=== PATIENT | female | born 1945 | race American Indian/Alaskan Native ===

== ENCOUNTER 2017-11-22 12:18 | Emergency (ER) | payer OTHER, MEDICARE ==
[2017-11-22 13:09] VITALS: BP 136/65
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
== END 2017-11-22 17:10 | disposition home or self-care (01) ==
LOC: ED 12:18
DX: Z04.1 Encounter for examination and observation following transport accident (principal); E11.9 Type 2 diabetes mellitus without complications; I10 Essential (primary) hypertension; F31.9 Bipolar disorder, unspecified; Z79.82 Long term (current) use of aspirin; F03.90 Unspecified dementia, unspecified severity, without behavioral disturbance, psychotic disturbance, mood disturbance, and anxiety; M10.9 Gout, unspecified; V89.2XXA Person injured in unspecified motor-vehicle accident, traffic, initial encounter; Y93.89 Activity, other specified; Y92.89 Other specified places as the place of occurrence of the external cause; Y99.8 Other external cause status
CPT/HCPCS: 99282

== ENCOUNTER 2018-07-16 09:02 | Emergency (ER) | payer MEDICARE ==
[2018-07-16] MEDS ORDERED: HALDOL IM ONE (09:25)
--- NOTE | 2018-07-16 09:29 | Emergency Department Report ---
HPI - General Time Seen by Provider: 07/16/18 09:24 - HPI HPI: Room 1 The patient is a 72-year-old female presenting with a chief complaint of fall. The patient is currently at [facility] under 101[facility]. The patient reportedly fell striking her head today and she was sent to the ED for evaluation. There was no loss of consciousness. Patient is hyperverbal and rambles but does not answer questions (baseline per anchor staff) Location: Head Duration: Just prior to arrival Quality: Struck head Severity: Moderate Modifying factors: [see above] Context: [see above] Mode of transportation: [not driving] ED Past Medical Hx - Past Medical History Hx Hypertension: Yes Hx Diabetes: Yes Hx Psychiatric Treatment: Yes Hx Dementia: Yes Additional medical history: Neuropathy, Gout, Bipolar - Surgical History Additional Surgical History: Unknown - Family History Family history: no significant - Social History Smoking Status: Unknown if ever smoked - Medications Home Medications: Home Medications Medication Instructions Recorded Confirmed Last Taken Type Allopurinol 200 mg PO DAILY 07/26/17 07/26/17 Unknown History Aspirin [Aspirin BABY CHEW TAB] 81 mg PO DAILY 07/26/17 07/26/17 Unknown History AtorvaSTATin [Lipitor] 10 mg PO DAILY 07/26/17 07/26/17 Unknown History Divalproex ER [Depakote ER] 500 mg PO DAILY 07/26/17 07/26/17 Unknown History Donepezil [Aricept] 10 mg PO QHS 07/26/17 07/26/17 Unknown History Enalapril Maleate [Vasotec] 10 mg PO BID 07/26/17 07/26/17 Unknown History Gabapentin [Neurontin] 300 mg PO BID 07/26/17 07/26/17 Unknown History Levothyroxine [Synthroid] 150 mcg PO DAILY 07/26/17 07/26/17 Unknown History Memantine [Namenda] 5 mg PO DAILY 07/26/17 07/26/17 Unknown History Metoprolol Xl [Metoprolol 100 mg PO DAILY 07/26/17 07/26/17 Unknown History SUCCINATE ER TAB] metFORMIN [Glucophage] 500 mg PO DAILY 07/26/17 07/26/17 Unknown History Clozapine 100 mg PO QAM 08/05/17 08/05/17 Unknown History Clozapine 200 mg PO QHS 08/05/17 08/05/17 Unknown History Mirtazapine [Remeron] 15 mg PO QHS #30 tablet 08/05/17 Unknown Rx Ibuprofen [Motrin] 600 mg PO Q8H PRN #30 tablet 11/22/17 Unknown Rx methOCARBAMOL [Robaxin TAB] 500 mg PO BID 5 Days tab 11/22/17 Unknown Rx ED Review of Systems ROS: Stated complaint: FELL/AMS Other details as noted in HPI Comment: Unobtainable due to pts medical conditions Physical Exam - Physical Exam Physical Exam: GENERAL: The patient is well-developed well-nourished female sitting on stretcher hyperverbal/rambling and not appearing to be in acute distress. [] HEENT: Normocephalic. Atraumatic. Extraocular motions are intact. Patient has moist mucous membranes. NECK: Supple. Trachea midline CHEST/LUNGS: Clear to auscultation. There is no respiratory distress noted. HEART/CARDIOVASCULAR: Regular. There is no tachycardia. There is no gallop rub or murmur. ABDOMEN: Abdomen is soft, nontender. Patient has normal bowel sounds. There is no abdominal distention. SKIN: There is no rash. There is no edema. There is no diaphoresis. NEURO: The patient is awake, alert and rambling. The patient is not cooperative with neurologic exam but is observed moving all 4 extremities. The patient has normal speech (except hyperverbal) MUSCULOSKELETAL: There is no evidence of acute injury. ED Medical Decision Making - Radiology Data Radiology results: report reviewed (CT head, CT cervical spine), image reviewed (CT head, CT cervical spine) [facility] [address] [place] [address] Cat Scan Report Signed Patient: HAYLEY GOMEZ MR#: [id number] : Acct:[id number] Age/Sex: 72 / F ADM Date: 07/16/18 Loc: ED Attending Dr: Ordering Physician: MIGUEL DRIVER MD Date of Service: 07/16/18 Procedure(s): CT head/brain wo con Accession Number(s): [id number] cc: MIGUEL DRIVER MD CT head without contrast: Fall, head trauma. Axial images demonstrates high density streaking in the right frontal region. There is a thin rim of high density paralleling the left mid and posterior temporal occipital region. The thickest area appears to be just lateral to the temporal region measuring 7.5 mm. No cerebral displacement, edema, or overlying calvarial fracture noted. The findings are not otherwise remarkable. Impression: Left subdural hematoma and right contrecoup concussion. Cervical CT without contrast: Trauma, pain. Transverse images were obtained from the skull base through T2. Coronal and sagittal 2-D reformatted images included. There is normal vertebral alignment with good preservation of the vertebral height and interspace distances. There is anterior bony bridging between C6 and C7. There is no fracture identified. No significant foraminal or spinal stenosis. No prevertebral swelling. Impressions: No acute or significant pathology identified for patient's age. Transcribed By: RML Dictated By: SHERITA ROBERTSON MD Electronically Authenticated By: SHERITA ROBERTSON MD Signed Date/Time: 07/16/181124 DD/DT: 02/26 TD/TT: 07/16/181124 [facility] [address] [place] [address] Cat Scan Report Signed Patient: HAYLEY GOMEZ MR#: [id number] : Acct:[id number] Age/Sex: 72 / F ADM Date: 07/16/18 Loc: ED Attending Dr: Ordering Physician: MIGUEL DRIVER MD Date of Service: 07/16/18 Procedure(s): CT cervical spine wo con Accession Number(s): [id number] cc: MIGUEL DRIVER MD CT head without contrast: Fall, head trauma. Axial images demonstrates high density streaking in the right frontal region. There is a thin rim of high density paralleling the left mid and posterior temporal occipital region. The thickest area appears to be just lateral to the temporal region measuring 7.5 mm. No cerebral displacement, edema, or overlying calvarial fracture noted. The findings are not otherwise remarkable. Impression: Left subdural hematoma and right contrecoup concussion. Cervical CT without contrast: Trauma, pain. Transverse images were obtained from the skull base through T2. Coronal and sagittal 2-D reformatted images included. There is normal vertebral alignment with good preservation of the vertebral height and interspace distances. There is anterior bony bridging between C6 and C7. There is no fracture identified. No significant foraminal or spinal stenosis. No prevertebral swelling. Impressions: No acute or significant pathology identified for patient's age. Transcribed By: RMLandon Dictated By: SHERITA ROBERTSON MD Electronically Authenticated By: SHERITA ROBERTSON MD Signed Date/Time: 07/16/185 DD/DT: 02/26 TD/TT: 07/16/181124 - Differential Diagnosis closed head injury, intracranial hemorrhage, Depakote toxicity Critical care attestation.: If time is entered above; I have spent that time in minutes in the direct care of this critically ill patient, excluding procedure time. ED Disposition Clinical Impression: Closed head injury Disposition: DC/TX-65 PSY HOSP/PSY UNIT Is pt being admited?: No Does the pt Need Aspirin: No Condition: Stable Instructions: Minor Head Injury (ED) Additional Instructions: Return to the emergency department immediately should you develop worsening symptoms, fever, inability to tolerate food or liquid or any other concerns. Referrals: PRIMARY CAREMD [Primary Care Provider] - 3-5 Days Time of Disposition: 12:00
[2018-07-16] MEDS ORDERED: ATIVAN IM ONE (10:30)
--- NOTE | 2018-07-16 11:44 | Cat Scan Report ---
CT head without contrast: Fall, head trauma. Axial images demonstrates high density streaking in the right frontal region. There is a thin rim of high density paralleling the left mid and posterior temporal occipital region. The thickest area appears to be just lateral to the temporal region measuring 7.5 mm. No cerebral displacement, edema, or overlying calvarial fracture noted. The findings are not otherwise remarkable. Impression: Left subdural hematoma and right contrecoup concussion. Cervical CT without contrast: Trauma, pain. Transverse images were obtained from the skull base through T2. Coronal and sagittal 2-D reformatted images included. There is normal vertebral alignment with good preservation of the vertebral height and interspace distances. There is anterior bony bridging between C6 and C7. There is no fracture identified. No significant foraminal or spinal stenosis. No prevertebral swelling. Impressions: No acute or significant pathology identified for patient's age.
[2018-07-16] MEDS ORDERED: NORMODYNE IV ONE (14:35)
[2018-07-16 14:44] VITALS: BP 163/76
== END 2018-07-16 14:46 ==
LOC: ED 09:02
DX: S09.90XA Unspecified injury of head, initial encounter (principal); I10 Essential (primary) hypertension; E11.9 Type 2 diabetes mellitus without complications; G62.9 Polyneuropathy, unspecified; Z79.82 Long term (current) use of aspirin; W18.30XA Fall on same level, unspecified, initial encounter; Y93.89 Activity, other specified; Y92.89 Other specified places as the place of occurrence of the external cause; Y99.8 Other external cause status
CPT/HCPCS: 36415; 70450; 72125; 80164; 96372; 99284; J1630; J2060

== ENCOUNTER 2019-03-06 12:27 | Inpatient (IN) | payer MEDICARE ==
[2019-03-06] MEDS ORDERED: NARCAN 2 MG/2 ML IV STA (12:29)
--- NOTE | 2019-03-06 12:40 | Emergency Department Report ---
ED Altered Mental Status HPI - General Stated Complaint: UNRESPONSIVE Time Seen by Provider: 03/06/19 12:29 Source: EMS, RN notes reviewed, old records reviewed Mode of arrival: Stretcher Limitations: Altered Mental Status - History of Present Illness Initial Comments: Mrs. Canseco is a 73 yo female with hx of dementia, diabetes mellitus, HTN subdural hemorrhage [facility] for decreased level of consciousness. She fell alseep while sitting in a synagogue service. She was unresponsive. She received 2 mg IV naloxone 5 minutes prior to arrival. Blood glucose was normal. After sternal rub, she awakened with her eyes closed. She then attempted to talk. She was able to give her name. MD Complaint: decreased responsiveness -: Sudden, This afternoon Severity: severe Consistency of Symptoms: constant Context: unknown Treatments Prior to Arrival: other pre-hosp med (naloxone) - Related Data Home Medications Medication Instructions Recorded Confirmed Last Taken Aspirin [Aspirin BABY CHEW TAB] 81 mg PO DAILY 07/26/17 03/06/19 Unknown AtorvaSTATin [Lipitor] 10 mg PO DAILY 07/26/17 03/06/19 Unknown Divalproex ER [Depakote ER] 250 mg PO BID 07/26/17 03/06/19 Unknown Donepezil [Aricept] 10 mg PO QHS 07/26/17 03/06/19 Unknown Enalapril Maleate [Vasotec] 10 mg PO BID 07/26/17 03/06/19 Unknown Gabapentin [Neurontin] 300 mg PO BID 07/26/17 03/06/19 Unknown Levothyroxine [Synthroid] 150 mcg PO DAILY 07/26/17 03/06/19 Unknown Memantine [Namenda] 5 mg PO DAILY 07/26/17 03/06/19 Unknown Metoprolol Xl [Metoprolol 100 mg PO DAILY 07/26/17 03/06/19 Unknown SUCCINATE ER TAB] metFORMIN [Glucophage] 500 mg PO BID 07/26/17 03/06/19 Unknown cloZAPine 200 mg PO QAM 03/06/19 03/06/19 Unknown cloZAPine 300 mg PO QPM 03/06/19 03/06/19 Unknown Allergies Allergy/AdvReac Type Severity Reaction Status Date / Time No Known Allergies Allergy Verified 07/16/18 15:02 ED Review of Systems ROS: Stated complaint: UNRESPONSIVE Other details as noted in HPI Comment: Unobtainable due to pts medical conditions (AMS) ED Past Medical Hx - Past Medical History Previous Medical History?: Yes Hx Hypertension: Yes Hx Diabetes: Yes Hx Psychiatric Treatment: Yes Hx Dementia: Yes Additional medical history: Neuropathy, Gout, Bipolar - Surgical History Additional Surgical History: Unknown - Social History Smoking Status: Never Smoker - Medications Home Medications: Home Medications Medication Instructions Recorded Confirmed Last Taken Type Aspirin [Aspirin BABY CHEW TAB] 81 mg PO DAILY 07/26/17 03/06/19 Unknown History AtorvaSTATin [Lipitor] 10 mg PO DAILY 07/26/17 03/06/19 Unknown History Divalproex ER [Depakote ER] 250 mg PO BID 07/26/17 03/06/19 Unknown History Donepezil [Aricept] 10 mg PO QHS 07/26/17 03/06/19 Unknown History Enalapril Maleate [Vasotec] 10 mg PO BID 07/26/17 03/06/19 Unknown History Gabapentin [Neurontin] 300 mg PO BID 07/26/17 03/06/19 Unknown History Levothyroxine [Synthroid] 150 mcg PO DAILY 07/26/17 03/06/19 Unknown History Memantine [Namenda] 5 mg PO DAILY 07/26/17 03/06/19 Unknown History Metoprolol Xl [Metoprolol 100 mg PO DAILY 07/26/17 03/06/19 Unknown History SUCCINATE ER TAB] metFORMIN [Glucophage] 500 mg PO BID 07/26/17 03/06/19 Unknown History cloZAPine 200 mg PO QAM 03/06/19 03/06/19 Unknown History cloZAPine 300 mg PO QPM 03/06/19 03/06/19 Unknown History ED Physical Exam - General General appearance: lethargic, other (arousable to sternal rub) - Head Head exam: Present: atraumatic, normocephalic - Eye Eye exam: Present: normal appearance, PERRL - ENT ENT exam: Present: other (copious amount of thick sputum in throat) - Neck Neck exam: Present: normal inspection, full ROM - Respiratory Respiratory exam: Present: normal lung sounds bilaterally. Absent: respiratory distress, wheezes, rales, rhonchi - Cardiovascular Cardiovascular Exam: Present: regular rate, normal rhythm, normal heart sounds. Absent: systolic murmur, diastolic murmur, rubs, gallop - GI/Abdominal GI/Abdominal exam: Present: soft, normal bowel sounds. Absent: distended, tenderness, guarding, rebound - Extremities Exam Extremities exam: Present: normal inspection - Back Exam Back exam: Present: normal inspection - Psychiatric Psychiatric exam: Present: normal affect, normal mood - Skin Skin exam: Present: warm, dry, intact, normal color. Absent: rash ED Course Vital Signs 03/06/19 03/06/19 03/06/19 12:26 12:33 12:34 Temperature 98 F Pulse Rate 78 83 Respiratory 16 14 14 Rate Blood Pressure 137/71 [Right] O2 Sat by Pulse 98 96 95 Oximetry 03/06/19 03/06/19 03/06/19 12:36 12:38 12:40 Temperature Pulse Rate 80 81 Respiratory 15 17 17 Rate Blood Pressure [Right] O2 Sat by Pulse 96 98 98 Oximetry - Lab Data Result diagrams: 03/06/19 Unknown 03/06/19 12:42 Lab Results 03/06/19 03/06/19 03/06/19 Range/Units 12:37 12:42 12:42 WBC (4.5-11.0) K/mm3 RBC (3.65-5.03) M/mm3 Hgb (10.1-14.3) gm/dl Hct (30.3-42.9) % MCV (79-97) fl MCH (28-32) pg MCHC (30-34) % RDW (13.2-15.2) % Plt Count (140-440) K/mm3 Lymph % (Auto) [place] % (Auto) Eos % (Auto) Baso % (Auto) Lymph # [place] # Eos # Baso # Add Manual Diff Total Counted Seg Neutrophils % Seg Neuts % (Manual) (40.0-70.0) % Band Neutrophils % % Lymphocytes % (Manual) (13.4-35.0) % Reactive Lymphs % (Man) % Monocytes % (Manual) (0.0-7.3) % Eosinophils % (Manual) (0.0-4.3) % Basophils % (Manual) (0.0-1.8) % Metamyelocytes % % Myelocytes % % Promyelocytes % % Blast Cells % % Nucleated RBC % Seg Neutrophils # Seg Neutrophils # Man (1.8-7.7) K/mm3 Band Neutrophils # K/mm3 Lymphocytes # (Manual) (1.2-5.4) K/mm3 Abs React Lymphs (Man) K/mm3 Monocytes # (Manual) (0.0-0.8) K/mm3 Eosinophils # (Manual) (0.0-0.4) K/mm3 Basophils # (Manual) (0.0-0.1) K/mm3 Metamyelocytes # K/mm3 Myelocytes # K/mm3 Promyelocytes # K/mm3 Blast Cells # K/mm3 WBC Morphology Hypersegmented Neuts Hyposegmented Neuts Hypogranular Neuts Smudge Cells Toxic Granulation Toxic Vacuolation Dohle Bodies Pelger-Huet Anomaly Gage Rods Platelet Estimate Clumped Platelets Plt Clumps, EDTA Large Platelets Giant Platelets Platelet Satelliting Plt Morphology Comment RBC Morphology Dimorphic RBCs Polychromasia Hypochromasia Poikilocytosis Anisocytosis Microcytosis Macrocytosis Spherocytes Pappenheimer Bodies Sickle Cells Target Cells Tear Drop Cells Ovalocytes Helmet Cells [place] Bodies [place] Rings [place] Cells Bite Cells Crenated Cell Elliptocytes Acanthocytes (Spur) Rouleaux Hemoglobin C Crystals Schistocytes Malaria parasites Marlon Bodies Hem Pathologist Commnt Sodium 146 H (137-145) mmol/L Potassium 4.2 (3.6-5.0) mmol/L Chloride 111.7 H (98-107) mmol/L Carbon Dioxide 19 L (22-30) mmol/L Anion Gap 20 mmol/L BUN 20 H (7-17) mg/dL Creatinine 1.3 H (0.7-1.2) mg/dL Estimated GFR 48 ml/min BUN/Creatinine Ratio 15 % Glucose 121 H (65-100) mg/dL POC Glucose 108 H (70-105) Lactic Acid 3.30 H* (0.7-2.0) mmol/L Calcium 8.7 (8.4-10.2) mg/dL Total Bilirubin 0.20 (0.1-1.2) mg/dL AST 8 (5-40) units/L ALT 13 (7-56) units/L Alkaline Phosphatase 84 (35-129) units/L Ammonia (25-60) umol/L Troponin T 0.039 H (0.00-0.029) ng/mL Total Protein 5.9 L (6.3-8.2) g/dL Albumin 3.2 L (3.9-5) g/dL Albumin/Globulin Ratio 1.2 % Triglycerides 85 (2-149) mg/dL Cholesterol 120 (50-199) mg/dL LDL Cholesterol Direct 71 (50-130) mg/dL HDL Cholesterol 34 L (40-59) mg/dL Cholesterol/HDL Ratio 3.52 % TSH (0.270-4.200) mlU/mL Urine Color (Yellow) Urine Turbidity (Clear) Urine pH (5.0-7.0) Ur Specific [place] (1.003-1.030) Urine Protein (Negative) mg/dL Urine Glucose (UA) (Negative) mg/dL Urine Ketones (Negative) mg/dL Urine Blood (Negative) Urine Nitrite (Negative) Urine Bilirubin (Negative) Urine Urobilinogen (<2.0) mg/dL Ur Leukocyte Esterase (Negative) Urine WBC (Auto) (0.0-6.0) /HPF Urine RBC (Auto) (0.0-6.0) /HPF Urine Mucus /HPF Salicylates (2.8-20.0) mg/dL Urine Opiates Screen Urine Methadone Screen Acetaminophen (10.0-30.0) ug/mL Ur Barbiturates Screen Ur Phencyclidine Scrn Ur Amphetamines Screen U Benzodiazepines Scrn Urine Cocaine Screen U Marijuana (THC) Screen Drugs of Abuse Note Plasma/Serum Alcohol (0-0.07) % 03/06/19 03/06/19 03/06/19 Range/Units 12:42 12:42 12:42 WBC (4.5-11.0) K/mm3 RBC (3.65-5.03) M/mm3 Hgb (10.1-14.3) gm/dl Hct (30.3-42.9) % MCV (79-97) fl MCH (28-32) pg MCHC (30-34) % RDW (13.2-15.2) % Plt Count (140-440) K/mm3 Lymph % (Auto) [place] % (Auto) Eos % (Auto) Baso % (Auto) Lymph # [place] # Eos # Baso # Add Manual Diff Total Counted Seg Neutrophils % Seg Neuts % (Manual) (40.0-70.0) % Band Neutrophils % % Lymphocytes % (Manual) (13.4-35.0) % Reactive Lymphs % (Man) % Monocytes % (Manual) (0.0-7.3) % Eosinophils % (Manual) (0.0-4.3) % Basophils % (Manual) (0.0-1.8) % Metamyelocytes % % Myelocytes % % Promyelocytes % % Blast Cells % % Nucleated RBC % Seg Neutrophils # Seg Neutrophils # Man (1.8-7.7) K/mm3 Band Neutrophils # K/mm3 Lymphocytes # (Manual) (1.2-5.4) K/mm3 Abs React Lymphs (Man) K/mm3 Monocytes # (Manual) (0.0-0.8) K/mm3 Eosinophils # (Manual) (0.0-0.4) K/mm3 Basophils # (Manual) (0.0-0.1) K/mm3 Metamyelocytes # K/mm3 Myelocytes # K/mm3 Promyelocytes # K/mm3 Blast Cells # K/mm3 WBC Morphology Hypersegmented Neuts Hyposegmented Neuts Hypogranular Neuts Smudge Cells Toxic Granulation Toxic Vacuolation Dohle Bodies Pelger-Huet Anomaly Gage Rods Platelet Estimate Clumped Platelets Plt Clumps, EDTA Large Platelets Giant Platelets Platelet Satelliting Plt Morphology Comment RBC Morphology Dimorphic RBCs Polychromasia Hypochromasia Poikilocytosis Anisocytosis Microcytosis Macrocytosis Spherocytes Pappenheimer Bodies Sickle Cells Target Cells Tear Drop Cells Ovalocytes Helmet Cells [place] Bodies [place] Rings [place] Cells Bite Cells Crenated Cell Elliptocytes Acanthocytes (Spur) Rouleaux Hemoglobin C Crystals Schistocytes Malaria parasites Marlon Bodies Hem Pathologist Commnt Sodium (137-145) mmol/L Potassium (3.6-5.0) mmol/L Chloride (98-107) mmol/L Carbon Dioxide (22-30) mmol/L Anion Gap mmol/L BUN (7-17) mg/dL Creatinine (0.7-1.2) mg/dL Estimated GFR ml/min BUN/Creatinine Ratio % Glucose (65-100) mg/dL POC Glucose (70-105) Lactic Acid (0.7-2.0) mmol/L Calcium (8.4-10.2) mg/dL Total Bilirubin (0.1-1.2) mg/dL AST (5-40) units/L ALT (7-56) units/L Alkaline Phosphatase (35-129) units/L Ammonia 70.0 H (25-60) umol/L Troponin T (0.00-0.029) ng/mL Total Protein (6.3-8.2) g/dL Albumin (3.9-5) g/dL Albumin/Globulin Ratio % Triglycerides (2-149) mg/dL Cholesterol (50-199) mg/dL LDL Cholesterol Direct (50-130) mg/dL HDL Cholesterol (40-59) mg/dL Cholesterol/HDL Ratio % TSH 30.480 H (0.270-4.200) mlU/mL Urine Color (Yellow) Urine Turbidity (Clear) Urine pH (5.0-7.0) Ur Specific [place] (1.003-1.030) Urine Protein (Negative) mg/dL Urine Glucose (UA) (Negative) mg/dL Urine Ketones (Negative) mg/dL Urine Blood (Negative) Urine Nitrite (Negative) Urine Bilirubin (Negative) Urine Urobilinogen (<2.0) mg/dL Ur Leukocyte Esterase (Negative) Urine WBC (Auto) (0.0-6.0) /HPF Urine RBC (Auto) (0.0-6.0) /HPF Urine Mucus /HPF Salicylates < 0.3 L (2.8-20.0) mg/dL Urine Opiates Screen Urine Methadone Screen Acetaminophen (10.0-30.0) ug/mL Ur Barbiturates Screen Ur Phencyclidine Scrn Ur Amphetamines Screen U Benzodiazepines Scrn Urine Cocaine Screen U Marijuana (THC) Screen Drugs of Abuse Note Plasma/Serum Alcohol (0-0.07) % 03/06/19 03/06/19 03/06/19 Range/Units 12:42 12:42 14:38 WBC (4.5-11.0) K/mm3 RBC (3.65-5.03) M/mm3 Hgb (10.1-14.3) gm/dl Hct (30.3-42.9) % MCV (79-97) fl MCH (28-32) pg MCHC (30-34) % RDW (13.2-15.2) % Plt Count (140-440) K/mm3 Lymph % (Auto) [place] % (Auto) Eos % (Auto) Baso % (Auto) Lymph # [place] # Eos # Baso # Add Manual Diff Total Counted Seg Neutrophils % Seg Neuts % (Manual) (40.0-70.0) % Band Neutrophils % % Lymphocytes % (Manual) (13.4-35.0) % Reactive Lymphs % (Man) % Monocytes % (Manual) (0.0-7.3) % Eosinophils % (Manual) (0.0-4.3) % Basophils % (Manual) (0.0-1.8) % Metamyelocytes % % Myelocytes % % Promyelocytes % % Blast Cells % % Nucleated RBC % Seg Neutrophils # Seg Neutrophils # Man (1.8-7.7) K/mm3 Band Neutrophils # K/mm3 Lymphocytes # (Manual) (1.2-5.4) K/mm3 Abs React Lymphs (Man) K/mm3 Monocytes # (Manual) (0.0-0.8) K/mm3 Eosinophils # (Manual) (0.0-0.4) K/mm3 Basophils # (Manual) (0.0-0.1) K/mm3 Metamyelocytes # K/mm3 Myelocytes # K/mm3 Promyelocytes # K/mm3 Blast Cells # K/mm3 WBC Morphology Hypersegmented Neuts Hyposegmented Neuts Hypogranular Neuts Smudge Cells Toxic Granulation Toxic Vacuolation Dohle Bodies Pelger-Huet Anomaly Gage Rods Platelet Estimate Clumped Platelets Plt Clumps, EDTA Large Platelets Giant Platelets Platelet Satelliting Plt Morphology Comment RBC Morphology Dimorphic RBCs Polychromasia Hypochromasia Poikilocytosis Anisocytosis Microcytosis Macrocytosis Spherocytes Pappenheimer Bodies Sickle Cells Target Cells Tear Drop Cells Ovalocytes Helmet Cells [place] Bodies [place] Rings [place] Cells Bite Cells Crenated Cell Elliptocytes Acanthocytes (Spur) Rouleaux Hemoglobin C Crystals Schistocytes Malaria parasites Marlon Bodies Hem Pathologist Commnt Sodium (137-145) mmol/L Potassium (3.6-5.0) mmol/L Chloride (98-107) mmol/L Carbon Dioxide (22-30) mmol/L Anion Gap mmol/L BUN (7-17) mg/dL Creatinine (0.7-1.2) mg/dL Estimated GFR ml/min BUN/Creatinine Ratio % Glucose (65-100) mg/dL POC Glucose (70-105) Lactic Acid 1.90 (0.7-2.0) mmol/L Calcium (8.4-10.2) mg/dL Total Bilirubin (0.1-1.2) mg/dL AST (5-40) units/L ALT (7-56) units/L Alkaline Phosphatase (35-129) units/L Ammonia (25-60) umol/L Troponin T (0.00-0.029) ng/mL Total Protein (6.3-8.2) g/dL Albumin (3.9-5) g/dL Albumin/Globulin Ratio % Triglycerides (2-149) mg/dL Cholesterol (50-199) mg/dL LDL Cholesterol Direct (50-130) mg/dL HDL Cholesterol (40-59) mg/dL Cholesterol/HDL Ratio % TSH (0.270-4.200) mlU/mL Urine Color (Yellow) Urine Turbidity (Clear) Urine pH (5.0-7.0) Ur Specific [place] (1.003-1.030) Urine Protein (Negative) mg/dL Urine Glucose (UA) (Negative) mg/dL Urine Ketones (Negative) mg/dL Urine Blood (Negative) Urine Nitrite (Negative) Urine Bilirubin (Negative) Urine Urobilinogen (<2.0) mg/dL Ur Leukocyte Esterase (Negative) Urine WBC (Auto) (0.0-6.0) /HPF Urine RBC (Auto) (0.0-6.0) /HPF Urine Mucus /HPF Salicylates (2.8-20.0) mg/dL Urine Opiates Screen Urine Methadone Screen Acetaminophen < 5.0 L (10.0-30.0) ug/mL Ur Barbiturates Screen Ur Phencyclidine Scrn Ur Amphetamines Screen U Benzodiazepines Scrn Urine Cocaine Screen U Marijuana (THC) Screen Drugs of Abuse Note Plasma/Serum Alcohol < 0.01 (0-0.07) % 03/06/19 03/06/19 03/06/19 Range/Units 14:38 14:57 14:57 WBC (4.5-11.0) K/mm3 RBC (3.65-5.03) M/mm3 Hgb (10.1-14.3) gm/dl Hct (30.3-42.9) % MCV (79-97) fl MCH (28-32) pg MCHC (30-34) % RDW (13.2-15.2) % Plt Count (140-440) K/mm3 Lymph % (Auto) [place] % (Auto) Eos % (Auto) Baso % (Auto) Lymph # [place] # Eos # Baso # Add Manual Diff Total Counted Seg Neutrophils % Seg Neuts % (Manual) (40.0-70.0) % Band Neutrophils % % Lymphocytes % (Manual) (13.4-35.0) % Reactive Lymphs % (Man) % Monocytes % (Manual) (0.0-7.3) % Eosinophils % (Manual) (0.0-4.3) % Basophils % (Manual) (0.0-1.8) % Metamyelocytes % % Myelocytes % % Promyelocytes % % Blast Cells % % Nucleated RBC % Seg Neutrophils # Seg Neutrophils # Man (1.8-7.7) K/mm3 Band Neutrophils # K/mm3 Lymphocytes # (Manual) (1.2-5.4) K/mm3 Abs React Lymphs (Man) K/mm3 Monocytes # (Manual) (0.0-0.8) K/mm3 Eosinophils # (Manual) (0.0-0.4) K/mm3 Basophils # (Manual) (0.0-0.1) K/mm3 Metamyelocytes # K/mm3 Myelocytes # K/mm3 Promyelocytes # K/mm3 Blast Cells # K/mm3 WBC Morphology Hypersegmented Neuts Hyposegmented Neuts Hypogranular Neuts Smudge Cells Toxic Granulation Toxic Vacuolation Dohle Bodies Pelger-Huet Anomaly Gage Rods Platelet Estimate Clumped Platelets Plt Clumps, EDTA Large Platelets Giant Platelets Platelet Satelliting Plt Morphology Comment RBC Morphology Dimorphic RBCs Polychromasia Hypochromasia Poikilocytosis Anisocytosis Microcytosis Macrocytosis Spherocytes Pappenheimer Bodies Sickle Cells Target Cells Tear Drop Cells Ovalocytes Helmet Cells [place] Bodies [place] Rings [place]acho Cells Bite Cells Crenated Cell Elliptocytes Acanthocytes (Spur) Rouleaux Hemoglobin C Crystals Schistocytes Malaria parasites Marlon Bodies Hem Pathologist Commnt Sodium (137-145) mmol/L Potassium (3.6-5.0) mmol/L Chloride (98-107) mmol/L Carbon Dioxide (22-30) mmol/L Anion Gap mmol/L BUN (7-17) mg/dL Creatinine (0.7-1.2) mg/dL Estimated GFR ml/min BUN/Creatinine Ratio % Glucose (65-100) mg/dL POC Glucose (70-105) Lactic Acid (0.7-2.0) mmol/L Calcium (8.4-10.2) mg/dL Total Bilirubin (0.1-1.2) mg/dL AST (5-40) units/L ALT (7-56) units/L Alkaline Phosphatase (35-129) units/L Ammonia 26.0 (25-60) umol/L Troponin T (0.00-0.029) ng/mL Total Protein (6.3-8.2) g/dL Albumin (3.9-5) g/dL Albumin/Globulin Ratio % Triglycerides (2-149) mg/dL Cholesterol (50-199) mg/dL LDL Cholesterol Direct (50-130) mg/dL HDL Cholesterol (40-59) mg/dL Cholesterol/HDL Ratio % TSH (0.270-4.200) mlU/mL Urine Color Yellow (Yellow) Urine Turbidity Clear (Clear) Urine pH 5.0 (5.0-7.0) Ur Specific [place] 1.011 (1.003-1.030) Urine Protein <15 mg/dl (Negative) mg/dL Urine Glucose (UA) Neg (Negative) mg/dL Urine Ketones Neg (Negative) mg/dL Urine Blood Neg (Negative) Urine Nitrite Neg (Negative) Urine Bilirubin Neg (Negative) Urine Urobilinogen < 2.0 (<2.0) mg/dL Ur Leukocyte Esterase Neg (Negative) Urine WBC (Auto) 1.0 (0.0-6.0) /HPF Urine RBC (Auto) 2.0 (0.0-6.0) /HPF Urine Mucus Few /HPF Salicylates (2.8-20.0) mg/dL Urine Opiates Screen Presumptive negative Urine Methadone Screen Presumptive negative Acetaminophen (10.0-30.0) ug/mL Ur Barbiturates Screen Presumptive negative Ur Phencyclidine Scrn Presumptive negative Ur Amphetamines Screen Presumptive negative U Benzodiazepines Scrn Presumptive negative Urine Cocaine Screen Presumptive negative U Marijuana (THC) Screen Presumptive negative Drugs of Abuse Note Disclamer Plasma/Serum Alcohol (0-0.07) % 03/06/19 03/06/19 Range/Units Unknown Unknown WBC 18.5 H (4.5-11.0) K/mm3 RBC 4.46 (3.65-5.03) M/mm3 Hgb 11.3 (10.1-14.3) gm/dl Hct 39.0 (30.3-42.9) % MCV 88 (79-97) fl MCH 25 L (28-32) pg MCHC 29 L (30-34) % RDW 16.5 H (13.2-15.2) % Plt Count 296 (140-440) K/mm3 Lymph % (Auto) Healthcare Liaison [place] % (Auto) Healthcare Liaison Eos % (Auto) Healthcare Liaison Baso % (Auto) Healthcare Liaison Lymph # Healthcare Liaison [place] # Healthcare Liaison Eos # Healthcare Liaison Baso # Healthcare Liaison Add Manual Diff Complete Total Counted 100 Seg Neutrophils % Healthcare Liaison Seg Neuts % (Manual) 68.0 (40.0-70.0) % Band Neutrophils % 7.0 % Lymphocytes % (Manual) 18.0 (13.4-35.0) % Reactive Lymphs % (Man) 0 % Monocytes % (Manual) 3.0 (0.0-7.3) % Eosinophils % (Manual) 0 (0.0-4.3) % Basophils % (Manual) 1.0 (0.0-1.8) % Metamyelocytes % 3.0 % Myelocytes % 0 % Promyelocytes % 0 % Blast Cells % 0 % Nucleated RBC % Not Reportable Seg Neutrophils # Healthcare Liaison Seg Neutrophils # Man 12.6 H (1.8-7.7) K/mm3 Band Neutrophils # 1.3 K/mm3 Lymphocytes # (Manual) 3.3 (1.2-5.4) K/mm3 Abs React Lymphs (Man) 0.0 K/mm3 Monocytes # (Manual) 0.6 (0.0-0.8) K/mm3 Eosinophils # (Manual) 0.0 (0.0-0.4) K/mm3 Basophils # (Manual) 0.2 H (0.0-0.1) K/mm3 Metamyelocytes # 0.6 K/mm3 Myelocytes # 0.0 K/mm3 Promyelocytes # 0.0 K/mm3 Blast Cells # 0.0 K/mm3 WBC Morphology Not Reportable TNR Hypersegmented Neuts Not Reportable Hyposegmented Neuts Not Reportable Hypogranular Neuts Not Reportable Smudge Cells Not Reportable Toxic Granulation Not Reportable Toxic Vacuolation Not Reportable Dohle Bodies Not Reportable Pelger-Huet Anomaly Not Reportable Gage Rods Not Reportable Platelet Estimate Consistent w auto Clumped Platelets Not Reportable Plt Clumps, EDTA Not Reportable Large Platelets Not Reportable Giant Platelets Not Reportable Platelet Satelliting Not Reportable Plt Morphology Comment Not Reportable RBC Morphology Not Reportable Dimorphic RBCs Not Reportable Polychromasia Not Reportable Hypochromasia 1+ Poikilocytosis 1+ Anisocytosis Not Reportable Microcytosis Not Reportable Macrocytosis Not Reportable Spherocytes Not Reportable Pappenheimer Bodies Not Reportable Sickle Cells Not Reportable Target Cells Not Reportable Tear Drop Cells Not Reportable Ovalocytes 2+ Helmet Cells Not Reportable [place] Bodies Not Reportable [place] Rings Not Reportable [place] Cells Not Reportable Bite Cells Not Reportable Crenated Cell Not Reportable Elliptocytes Not Reportable Acanthocytes (Spur) Not Reportable Rouleaux Not Reportable Hemoglobin C Crystals Not Reportable Schistocytes Not Reportable Malaria parasites Not Reportable Marlon Bodies Not Reportable Hem Pathologist Commnt No Sodium (137-145) mmol/L Potassium (3.6-5.0) mmol/L Chloride (98-107) mmol/L Carbon Dioxide (22-30) mmol/L Anion Gap mmol/L BUN (7-17) mg/dL Creatinine (0.7-1.2) mg/dL Estimated GFR ml/min BUN/Creatinine Ratio % Glucose (65-100) mg/dL POC Glucose (70-105) Lactic Acid (0.7-2.0) mmol/L Calcium (8.4-10.2) mg/dL Total Bilirubin (0.1-1.2) mg/dL AST (5-40) units/L ALT (7-56) units/L Alkaline Phosphatase (35-129) units/L Ammonia (25-60) umol/L Troponin T (0.00-0.029) ng/mL Total Protein (6.3-8.2) g/dL Albumin (3.9-5) g/dL Albumin/Globulin Ratio % Triglycerides (2-149) mg/dL Cholesterol (50-199) mg/dL LDL Cholesterol Direct (50-130) mg/dL HDL Cholesterol (40-59) mg/dL Cholesterol/HDL Ratio % TSH (0.270-4.200) mlU/mL Urine Color (Yellow) Urine Turbidity (Clear) Urine pH (5.0-7.0) Ur Specific [place] (1.003-1.030) Urine Protein (Negative) mg/dL Urine Glucose (UA) (Negative) mg/dL Urine Ketones (Negative) mg/dL Urine Blood (Negative) Urine Nitrite (Negative) Urine Bilirubin (Negative) Urine Urobilinogen (<2.0) mg/dL Ur Leukocyte Esterase (Negative) Urine WBC (Auto) (0.0-6.0) /HPF Urine RBC (Auto) (0.0-6.0) /HPF Urine Mucus /HPF Salicylates (2.8-20.0) mg/dL Urine Opiates Screen Urine Methadone Screen Acetaminophen (10.0-30.0) ug/mL Ur Barbiturates Screen Ur Phencyclidine Scrn Ur Amphetamines Screen U Benzodiazepines Scrn Urine Cocaine Screen U Marijuana (THC) Screen Drugs of Abuse Note Plasma/Serum Alcohol (0-0.07) % Laboratory Results - last 24 hr 03/06/19 03/06/19 03/06/19 12:37 12:42 12:42 WBC RBC Hgb Hct MCV MCH MCHC RDW Plt Count Lymph % (Auto) [place] % (Auto) Eos % (Auto) Baso % (Auto) Lymph # [place] # Eos # Baso # Add Manual Diff Total Counted Seg Neutrophils % Seg Neuts % (Manual) Band Neutrophils % Lymphocytes % (Manual) Reactive Lymphs % (Man) Monocytes % (Manual) Eosinophils % (Manual) Basophils % (Manual) Metamyelocytes % Myelocytes % Promyelocytes % Blast Cells % Nucleated RBC % Seg Neutrophils # Seg Neutrophils # Man Band Neutrophils # Lymphocytes # (Manual) Abs React Lymphs (Man) Monocytes # (Manual) Eosinophils # (Manual) Basophils # (Manual) Metamyelocytes # Myelocytes # Promyelocytes # Blast Cells # WBC Morphology Hypersegmented Neuts Hyposegmented Neuts Hypogranular Neuts Smudge Cells Toxic Granulation Toxic Vacuolation Dohle Bodies Pelger-Huet Anomaly Gage Rods Platelet Estimate Clumped Platelets Plt Clumps, EDTA Large Platelets Giant Platelets Platelet Satelliting Plt Morphology Comment RBC Morphology Dimorphic RBCs Polychromasia Hypochromasia Poikilocytosis Anisocytosis Microcytosis Macrocytosis Spherocytes Pappenheimer Bodies Sickle Cells Target Cells Tear Drop Cells Ovalocytes Helmet Cells [place] Bodies [place] Rings [place] Cells Bite Cells Crenated Cell Elliptocytes Acanthocytes (Spur) Rouleaux Hemoglobin C Crystals Schistocytes Malaria parasites Marlon Bodies Hem Pathologist Commnt Sodium 146 H Potassium 4.2 Chloride 111.7 H Carbon Dioxide 19 L Anion Gap 20 BUN 20 H Creatinine 1.3 H Estimated GFR 48 BUN/Creatinine Ratio 15 Glucose 121 H POC Glucose 108 H Lactic Acid 3.30 H* Calcium 8.7 Total Bilirubin 0.20 AST 8 ALT 13 Alkaline Phosphatase 84 Ammonia Troponin T 0.039 H Total Protein 5.9 L Albumin 3.2 L Albumin/Globulin Ratio 1.2 Triglycerides 85 Cholesterol 120 LDL Cholesterol Direct 71 HDL Cholesterol 34 L Cholesterol/HDL Ratio 3.52 TSH Urine Color Urine Turbidity Urine pH Ur Specific [place] Urine Protein Urine Glucose (UA) Urine Ketones Urine Blood Urine Nitrite Urine Bilirubin Urine Urobilinogen Ur Leukocyte Esterase Urine WBC (Auto) Urine RBC (Auto) Urine Mucus Salicylates Urine Opiates Screen Urine Methadone Screen Acetaminophen Ur Barbiturates Screen Ur Phencyclidine Scrn Ur Amphetamines Screen U Benzodiazepines Scrn Urine Cocaine Screen U Marijuana (THC) Screen Drugs of Abuse Note Plasma/Serum Alcohol 03/06/19 03/06/19 03/06/19 12:42 12:42 12:42 WBC RBC Hgb Hct MCV MCH MCHC RDW Plt Count Lymph % (Auto) [place] % (Auto) Eos % (Auto) Baso % (Auto) Lymph # [place] # Eos # Baso # Add Manual Diff Total Counted Seg Neutrophils % Seg Neuts % (Manual) Band Neutrophils % Lymphocytes % (Manual) Reactive Lymphs % (Man) Monocytes % (Manual) Eosinophils % (Manual) Basophils % (Manual) Metamyelocytes % Myelocytes % Promyelocytes % Blast Cells % Nucleated RBC % Seg Neutrophils # Seg Neutrophils # Man Band Neutrophils # Lymphocytes # (Manual) Abs React Lymphs (Man) Monocytes # (Manual) Eosinophils # (Manual) Basophils # (Manual) Metamyelocytes # Myelocytes # Promyelocytes # Blast Cells # WBC Morphology Hypersegmented Neuts Hyposegmented Neuts Hypogranular Neuts Smudge Cells Toxic Granulation Toxic Vacuolation Dohle Bodies Pelger-Huet Anomaly Gage Rods Platelet Estimate Clumped Platelets Plt Clumps, EDTA Large Platelets Giant Platelets Platelet Satelliting Plt Morphology Comment RBC Morphology Dimorphic RBCs Polychromasia Hypochromasia Poikilocytosis Anisocytosis Microcytosis Macrocytosis Spherocytes Pappenheimer Bodies Sickle Cells Target Cells Tear Drop Cells Ovalocytes Helmet Cells [place] Bodies [place] Rings [place] Cells Bite Cells Crenated Cell Elliptocytes Acanthocytes (Spur) Rouleaux Hemoglobin C Crystals Schistocytes Malaria parasites Marlon Bodies Hem Pathologist Commnt Sodium Potassium Chloride Carbon Dioxide Anion Gap BUN Creatinine Estimated GFR BUN/Creatinine Ratio Glucose POC Glucose Lactic Acid Calcium Total Bilirubin AST ALT Alkaline Phosphatase Ammonia 70.0 H Troponin T Total Protein Albumin Albumin/Globulin Ratio Triglycerides Cholesterol LDL Cholesterol Direct HDL Cholesterol Cholesterol/HDL Ratio TSH 30.480 H Urine Color Urine Turbidity Urine pH Ur Specific [place] Urine Protein Urine Glucose (UA) Urine Ketones Urine Blood Urine Nitrite Urine Bilirubin Urine Urobilinogen Ur Leukocyte Esterase Urine WBC (Auto) Urine RBC (Auto) Urine Mucus Salicylates < 0.3 L Urine Opiates Screen Urine Methadone Screen Acetaminophen Ur Barbiturates Screen Ur Phencyclidine Scrn Ur Amphetamines Screen U Benzodiazepines Scrn Urine Cocaine Screen U Marijuana (THC) Screen Drugs of Abuse Note Plasma/Serum Alcohol 03/06/19 03/06/19 03/06/19 12:42 12:42 14:38 WBC RBC Hgb Hct MCV MCH MCHC RDW Plt Count Lymph % (Auto) [place] % (Auto) Eos % (Auto) Baso % (Auto) Lymph # [place] # Eos # Baso # Add Manual Diff Total Counted Seg Neutrophils % Seg Neuts % (Manual) Band Neutrophils % Lymphocytes % (Manual) Reactive Lymphs % (Man) Monocytes % (Manual) Eosinophils % (Manual) Basophils % (Manual) Metamyelocytes % Myelocytes % Promyelocytes % Blast Cells % Nucleated RBC % Seg Neutrophils # Seg Neutrophils # Man Band Neutrophils # Lymphocytes # (Manual) Abs React Lymphs (Man) Monocytes # (Manual) Eosinophils # (Manual) Basophils # (Manual) Metamyelocytes # Myelocytes # Promyelocytes # Blast Cells # WBC Morphology Hypersegmented Neuts Hyposegmented Neuts Hypogranular Neuts Smudge Cells Toxic Granulation Toxic Vacuolation Dohle Bodies Pelger-Huet Anomaly Gage Rods Platelet Estimate Clumped Platelets Plt Clumps, EDTA Large Platelets Giant Platelets Platelet Satelliting Plt Morphology Comment RBC Morphology Dimorphic RBCs Polychromasia Hypochromasia Poikilocytosis Anisocytosis Microcytosis Macrocytosis Spherocytes Pappenheimer Bodies Sickle Cells Target Cells Tear Drop Cells Ovalocytes Helmet Cells [place] Bodies [place] Rings Tacho Cells Bite Cells Crenated Cell Elliptocytes Acanthocytes (Spur) Rouleaux Hemoglobin C Crystals Schistocytes Malaria parasites Marlon Bodies Hem Pathologist Commnt Sodium Potassium Chloride Carbon Dioxide Anion Gap BUN Creatinine Estimated GFR BUN/Creatinine Ratio Glucose POC Glucose Lactic Acid 1.90 Calcium Total Bilirubin AST ALT Alkaline Phosphatase Ammonia Troponin T Total Protein Albumin Albumin/Globulin Ratio Triglycerides Cholesterol LDL Cholesterol Direct HDL Cholesterol Cholesterol/HDL Ratio TSH Urine Color Urine Turbidity Urine pH Ur Specific [place] Urine Protein Urine Glucose (UA) Urine Ketones Urine Blood Urine Nitrite Urine Bilirubin Urine Urobilinogen Ur Leukocyte Esterase Urine WBC (Auto) Urine RBC (Auto) Urine Mucus Salicylates Urine Opiates Screen Urine Methadone Screen Acetaminophen < 5.0 L Ur Barbiturates Screen Ur Phencyclidine Scrn Ur Amphetamines Screen U Benzodiazepines Scrn Urine Cocaine Screen U Marijuana (THC) Screen Drugs of Abuse Note Plasma/Serum Alcohol < 0.01 03/06/19 03/06/19 03/06/19 14:38 14:57 14:57 WBC RBC Hgb Hct MCV MCH MCHC RDW Plt Count Lymph % (Auto) [place] % (Auto) Eos % (Auto) Baso % (Auto) Lymph # [place] # Eos # Baso # Add Manual Diff Total Counted Seg Neutrophils % Seg Neuts % (Manual) Band Neutrophils % Lymphocytes % (Manual) Reactive Lymphs % (Man) Monocytes % (Manual) Eosinophils % (Manual) Basophils % (Manual) Metamyelocytes % Myelocytes % Promyelocytes % Blast Cells % Nucleated RBC % Seg Neutrophils # Seg Neutrophils # Man Band Neutrophils # Lymphocytes # (Manual) Abs React Lymphs (Man) Monocytes # (Manual) Eosinophils # (Manual) Basophils # (Manual) Metamyelocytes # Myelocytes # Promyelocytes # Blast Cells # WBC Morphology Hypersegmented Neuts Hyposegmented Neuts Hypogranular Neuts Smudge Cells Toxic Granulation Toxic Vacuolation Dohle Bodies Pelger-Huet Anomaly Gage Rods Platelet Estimate Clumped Platelets Plt Clumps, EDTA Large Platelets Giant Platelets Platelet Satelliting Plt Morphology Comment RBC Morphology Dimorphic RBCs Polychromasia Hypochromasia Poikilocytosis Anisocytosis Microcytosis Macrocytosis Spherocytes Pappenheimer Bodies Sickle Cells Target Cells Tear Drop Cells Ovalocytes Helmet Cells [place] Bodies [place] Rings [place] Cells Bite Cells Crenated Cell Elliptocytes Acanthocytes (Spur) Rouleaux Hemoglobin C Crystals Schistocytes Malaria parasites Marlon Bodies Hem Pathologist Commnt Sodium Potassium Chloride Carbon Dioxide Anion Gap BUN Creatinine Estimated GFR BUN/Creatinine Ratio Glucose POC Glucose Lactic Acid Calcium Total Bilirubin AST ALT Alkaline Phosphatase Ammonia 26.0 Troponin T Total Protein Albumin Albumin/Globulin Ratio Triglycerides Cholesterol LDL Cholesterol Direct HDL Cholesterol Cholesterol/HDL Ratio TSH Urine Color Yellow Urine Turbidity Clear Urine pH 5.0 Ur Specific [place] 1.011 Urine Protein <15 mg/dl Urine Glucose (UA) Neg Urine Ketones Neg Urine Blood Neg Urine Nitrite Neg Urine Bilirubin Neg Urine Urobilinogen < 2.0 Ur Leukocyte Esterase Neg Urine WBC (Auto) 1.0 Urine RBC (Auto) 2.0 Urine Mucus Few Salicylates Urine Opiates Screen Presumptive negative Urine Methadone Screen Presumptive negative Acetaminophen Ur Barbiturates Screen Presumptive negative Ur Phencyclidine Scrn Presumptive negative Ur Amphetamines Screen Presumptive negative U Benzodiazepines Scrn Presumptive negative Urine Cocaine Screen Presumptive negative U Marijuana (THC) Screen Presumptive negative Drugs of Abuse Note Disclamer Plasma/Serum Alcohol 03/06/19 03/06/19 Unknown Unknown WBC 18.5 H RBC 4.46 Hgb 11.3 Hct 39.0 MCV 88 MCH 25 L MCHC 29 L RDW 16.5 H Plt Count 296 Lymph % (Auto) Healthcare Liaison [place] % (Auto) Healthcare Liaison Eos % (Auto) Healthcare Liaison Baso % (Auto) Healthcare Liaison Lymph # Healthcare Liaison [place] # Healthcare Liaison Eos # Healthcare Liaison Baso # Healthcare Liaison Add Manual Diff Complete Total Counted 100 Seg Neutrophils % Healthcare Liaison Seg Neuts % (Manual) 68.0 Band Neutrophils % 7.0 Lymphocytes % (Manual) 18.0 Reactive Lymphs % (Man) 0 Monocytes % (Manual) 3.0 Eosinophils % (Manual) 0 Basophils % (Manual) 1.0 Metamyelocytes % 3.0 Myelocytes % 0 Promyelocytes % 0 Blast Cells % 0 Nucleated RBC % Not Reportable Seg Neutrophils # Healthcare Liaison Seg Neutrophils # Man 12.6 H Band Neutrophils # 1.3 Lymphocytes # (Manual) 3.3 Abs React Lymphs (Man) 0.0 Monocytes # (Manual) 0.6 Eosinophils # (Manual) 0.0 Basophils # (Manual) 0.2 H Metamyelocytes # 0.6 Myelocytes # 0.0 Promyelocytes # 0.0 Blast Cells # 0.0 WBC Morphology Not Reportable TNR Hypersegmented Neuts Not Reportable Hyposegmented Neuts Not Reportable Hypogranular Neuts Not Reportable Smudge Cells Not Reportable Toxic Granulation Not Reportable Toxic Vacuolation Not Reportable Dohle Bodies Not Reportable Pelger-Huet Anomaly Not Reportable Gage Rods Not Reportable Platelet Estimate Consistent w auto Clumped Platelets Not Reportable Plt Clumps, EDTA Not Reportable Large Platelets Not Reportable Giant Platelets Not Reportable Platelet Satelliting Not Reportable Plt Morphology Comment Not Reportable RBC Morphology Not Reportable Dimorphic RBCs Not Reportable Polychromasia Not Reportable Hypochromasia 1+ Poikilocytosis 1+ Anisocytosis Not Reportable Microcytosis Not Reportable Macrocytosis Not Reportable Spherocytes Not Reportable Pappenheimer Bodies Not Reportable Sickle Cells Not Reportable Target Cells Not Reportable Tear Drop Cells Not Reportable Ovalocytes 2+ Helmet Cells Not Reportable [place] Bodies Not Reportable [place] Rings Not Reportable [place] Cells Not Reportable Bite Cells Not Reportable Crenated Cell Not Reportable Elliptocytes Not Reportable Acanthocytes (Spur) Not Reportable Rouleaux Not Reportable Hemoglobin C Crystals Not Reportable Schistocytes Not Reportable Malaria parasites Not Reportable Marlon Bodies Not Reportable Hem Pathologist Commnt No Sodium Potassium Chloride Carbon Dioxide Anion Gap BUN Creatinine Estimated GFR BUN/Creatinine Ratio Glucose POC Glucose Lactic Acid Calcium Total Bilirubin AST ALT Alkaline Phosphatase Ammonia Troponin T Total Protein Albumin Albumin/Globulin Ratio Triglycerides Cholesterol LDL Cholesterol Direct HDL Cholesterol Cholesterol/HDL Ratio TSH Urine Color Urine Turbidity Urine pH Ur Specific [place] Urine Protein Urine Glucose (UA) Urine Ketones Urine Blood Urine Nitrite Urine Bilirubin Urine Urobilinogen Ur Leukocyte Esterase Urine WBC (Auto) Urine RBC (Auto) Urine Mucus Salicylates Urine Opiates Screen Urine Methadone Screen Acetaminophen Ur Barbiturates Screen Ur Phencyclidine Scrn Ur Amphetamines Screen U Benzodiazepines Scrn Urine Cocaine Screen U Marijuana (THC) Screen Drugs of Abuse Note Plasma/Serum Alcohol - Radiology Data Radiology results: report reviewed, image reviewed - Medical Decision Making Upon arrival, I was concerned for oversedation. After sternal rub and 4 mg naloxone total, Mrs. Canseco was arousable. Daughters explained that she has been in a "manic state" for the past 9 weeks. Allyson includes hyperverbal speech and insomnia She is residing at [facility]-term facility. Labs reveals hypovolemic hypernatremia, metabolic acidosis presumed to be due to ketosis, TSH 30. Suspect polypharmacy, dementia, and mental illness to be factors. I also suspect a metabolic component to acute encephalopathy. Will benefit for IV hydration. Admitted to hospitalist service for further treatment and evaluation Daughters bedside are both martinez of employment attorney. Mrs. Canseco has had severe mental illness for over 50 years requiring innumerable hospitalizations. She was formerly cared for by her parents until their . Daughters were raised by their father. Critical Care Time: Yes Critical care time in (mins) excluding proc time.: 40 Critical care attestation.: If time is entered above; I have spent that time in minutes in the direct care of this critically ill patient, excluding procedure time. 40 minutes of critical care time excluding procedures were used in the care of the patient. Patient required multiple assessments and interventions. I reviewed the electronic medical record. I came to the bedside immediately after notification by charge nurse of unresponsive patient. I obtained history from EMS. I immediately ordered Naloxone home. With sternal rub patient became conversant. She did have copious thick sputum at the back of her mouth. Nurse provided suctioning. I consulted with respiratory therapist and nusring staff. I provided orders. I [facility]. Also reviewed discharge summaries from previous hospitalizations. ED Disposition Clinical Impression: Acute metabolic encephalopathy, Dementia, Bipolar disorder, Allyson, Schizophrenia, Elevated TSH, Hypothyroidism, Dehydration Disposition: -09 OP ADMIT IP TO THIS HOSP Is pt being admited?: Yes Does the pt Need Aspirin: No Condition: Stable
[2019-03-06 13:44] LABS: Albumin 3.2 g/dL (3.9-5); Calcium 8.7 mg/dL (8.4-10.2)
[2019-03-06] MEDS ORDERED: NACL 0.9% 1000 ML 1,000 ML IV ONE ×2 (13:48)
[2019-03-06 14:08] LABS: Hemoglobin 11.3 gm/dl (10.1-14.3); Mean Corpuscular HGB Conc 29 % (30-34); Mean Corpuscular Volume 88 fl (79-97); Mean Platelet Volume 9.9 fl (6-12); Platelet Count 296 K/mm3 (140-440); Red Blood Count 4.46 M/mm3 (3.65-5.03); Red Cell Distribution Width 16.5 % (13.2-15.2)
--- NOTE | 2019-03-06 14:23 | XRay Report ---
PROCEDURE: XR CHEST 1V AP TECHNIQUE: Chest, one view HISTORY: Altered Mental Status COMPARISON: 07/22/2018 FINDINGS: The heart size is normal. There is no pulmonary vascular congestion seen. There is minimal atelectasis at the left base. Remaining lungs are clear. There is no pleural effusion seen. There is no pneumothorax seen. IMPRESSION: No significant abnormality identified. This document is electronically signed by Madeline Paredes MD., Mar 06 2019 02:21:34 PM ET
[2019-03-06 14:25] LABS: Chol/HDL Ratio 3.52 %
--- NOTE | 2019-03-06 15:01 | Cat Scan Report ---
PROCEDURE: CT HEAD/BRAIN WO CON TECHNIQUE: Computerized tomography of the head was performed without contrast material. CT DOSE LENGTH PRODUCT: mGycm HISTORY: Altered Mental Status COMPARISONS: Head CT July 22, 2018 . FINDINGS: No acute extra-axial fluid collection. No midline shift. No cisternal effacement. Generalized promine nce of the ventricles and subarachnoid spaces compatible with volume loss. Atherosclerotic calcificat ion distal internal carotid arteries. No suspect hyperdensity over the vascular system. No parenchyma l hemorrhage. Fleming-white interface maintained. Paranasal sinuses no air fluid level. Mastoid air cell s normal aeration. Calvarium no acute defect. IMPRESSION: No acute intracranial process Mild generalized volume loss Atherosclerotic vascular disease . This document is electronically signed by Juan Sullivan MD., Mar 06 2019 02:58:51 PM ET
[2019-03-06 15:05] LABS: Bilirubin,Urine NEG (Negative); Blood,Urine NEG (Negative); Color,Urine Yellow (Yellow); Mucus,Urine FEW /HPF; Protein,Urine <15 mg/dL mg/dL (Negative); Urobilinogen,Urine < 2.0 mg/dL (<2.0)
[2019-03-06 15:14] LABS: Amphetamine Screen,Urine PRESUMPTIVE NEGATIVE; Benzodiazepines Screen,Urine PRESUMPTIVE NEGATIVE; Cannabinoid Screen,Urine PRESUMPTIVE NEGATIVE; Cocaine Screen,Urine PRESUMPTIVE NEGATIVE; Methadone Screen,Urine PRESUMPTIVE NEGATIVE; Opiate Screen,Urine PRESUMPTIVE NEGATIVE
[2019-03-06 15:39] LABS: Band Neutrophils # (Manual) 1.3 K/mm3; Eosinophils % (Manual) 0 % (0.0-4.3); Total Cells Counted 100
[2019-03-06 15:40] LABS: Hypochromasia 1+; Ovalocytes 2+; Platelet Estimate Consistent w Auto; Poikilocytosis 1+
[2019-03-06] MEDS ORDERED: HALDOL IM ONE (17:16)
[2019-03-06] MEDS ORDERED: HALDOL ONE (17:41)
[2019-03-06] MEDS ORDERED: TYLENOL PO PRN (21:46)
[2019-03-06] MEDS ORDERED: SODIUM CHLORIDE FLUSH SYRINGE 10 ML IV PRN (21:46)
[2019-03-06] MEDS ORDERED: ZOFRAN IV PRN (21:46)
[2019-03-06] MEDS ORDERED: PERCOCET 5/325 PO PRN (21:46)
[2019-03-06] MEDS ORDERED: MORPHINE IV PRN (21:46)
--- NOTE | 2019-03-06 21:46 | History and Physical Report ---
History of Present Illness Date of examination: 03/06/19 Date of admission: 03/06/19 16:39 Chief complaint: Decreased level of conscious since AM History of present illness: 73 yo female with hx of dementia, diabetes mellitus, HTN subdural hemorrhage who [facility] from [facility] for decreased level of consciousness. She fell alseep while sitting in a [employer] service. She was unresponsive. She received 2 mg IV naloxone 5 minutes prior to arrival. Blood glucose was normal. After sternal rub, she awakened with her eyes closed. She then attempted to talk. She was able to give her name. Past Medical History Previous Medical History?: Yes Hypertension: Yes Diabetes: Yes Psychiatric Treatment: Yes Dementia: Yes Additional medical history: Neuropathy, Gout, Bipolar Surgical History Additional Surgical History: Unknown Social History Smoking Status: Never Smoker Family History Htn Medications Home Medications: Home Medications Medication Instructions Recorded Confirmed Last Taken Type Aspirin [Aspirin BABY CHEW TAB] 81 mg PO DAILY 07/26/17 03/06/19 Unknown History AtorvaSTATin [Lipitor] 10 mg PO DAILY 07/26/17 03/06/19 Unknown History Divalproex ER [Depakote ER] 250 mg PO BID 07/26/17 03/06/19 Unknown History Donepezil [Aricept] 10 mg PO QHS 07/26/17 03/06/19 Unknown History Enalapril Maleate [Vasotec] 10 mg PO BID 07/26/17 03/06/19 Unknown History Gabapentin [Neurontin] 300 mg PO BID 07/26/17 03/06/19 Unknown History Levothyroxine [Synthroid] 150 mcg PO DAILY 07/26/17 03/06/19 Unknown History Memantine [Namenda] 5 mg PO DAILY 07/26/17 03/06/19 Unknown History Metoprolol Xl [Metoprolol 100 mg PO DAILY 07/26/17 03/06/19 Unknown History SUCCINATE ER TAB] metFORMIN [Glucophage] 500 mg PO BID 07/26/17 03/06/19 Unknown History cloZAPine 200 mg PO QAM 03/06/19 03/06/19 Unknown History cloZAPine 300 mg PO QPM 03/06/19 03/06/19 Unknown History Review of Systems ROS: Stated complaint: Decreased responsiveness Other details as noted in HPI Comment: Unobtainable due to pts medical conditions (AMS) Medications and Allergies Allergies Allergy/AdvReac Type Severity Reaction Status Date / Time No Known Allergies Allergy Verified 07/16/18 15:02 Home Medications Medication Instructions Recorded Confirmed Last Taken Type Aspirin [Aspirin BABY CHEW TAB] 81 mg PO DAILY 07/26/17 03/06/19 Unknown History AtorvaSTATin [Lipitor] 10 mg PO DAILY 07/26/17 03/06/19 Unknown History Divalproex ER [Depakote ER] 250 mg PO BID 07/26/17 03/06/19 Unknown History Donepezil [Aricept] 10 mg PO QHS 07/26/17 03/06/19 Unknown History Enalapril Maleate [Vasotec] 10 mg PO BID 07/26/17 03/06/19 Unknown History Gabapentin [Neurontin] 300 mg PO BID 07/26/17 03/06/19 Unknown History Levothyroxine [Synthroid] 150 mcg PO DAILY 07/26/17 03/06/19 Unknown History Memantine [Namenda] 5 mg PO DAILY 07/26/17 03/06/19 Unknown History Metoprolol Xl [Metoprolol 100 mg PO DAILY 07/26/17 03/06/19 Unknown History SUCCINATE ER TAB] metFORMIN [Glucophage] 500 mg PO BID 07/26/17 03/06/19 Unknown History cloZAPine 200 mg PO QAM 03/06/19 03/06/19 Unknown History cloZAPine 300 mg PO QPM 03/06/19 03/06/19 Unknown History Exam - Constitutional Vitals: Temp Pulse Resp BP Pulse Ox 98 F 70 16 133/72 98 03/06/19 12:26 03/06/19 16:39 03/06/19 16:39 03/06/19 16:39 03/06/19 16:39 General appearance: Present: no acute distress, well-nourished - EENT Eyes: Present: PERRL ENT: hearing intact, clear oral mucosa - Neck Neck: Present: supple, normal ROM - Respiratory Respiratory effort: normal Respiratory: bilateral: CTA - Cardiovascular Heart rate: 78 Rhythm: regular Heart Sounds: Present: S1 & S2. Absent: rub, click - Extremities Extremities: no ischemia, pulses intact, pulses symmetrical, No edema Peripheral Pulses: within normal limits - Abdominal General gastrointestinal: Present: soft, non-tender, non-distended, normal bowel sounds Female genitourinary: Present: normal - Rectal Rectal Exam: deferred - Integumentary Integumentary: Present: clear, warm, dry - Musculoskeletal Musculoskeletal: generalized weakness - Psychiatric Psychiatric: agitated, other (Alert but not oriented) - Neurologic Neurologic: CNII-XII intact, moves all extremities - Allied Health Allied health notes reviewed: nursing, case management Results - Labs CBC & Chem 7: 03/06/19 Unknown 03/06/19 12:42 Labs: Laboratory Last Values WBC 18.5 K/mm3 (4.5-11.0) H 03/06/19 Unknown RBC 4.46 M/mm3 (3.65-5.03) 03/06/19 Unknown Hgb 11.3 gm/dl (10.1-14.3) 03/06/19 Unknown Hct 39.0 % (30.3-42.9) 03/06/19 Unknown MCV 88 fl (79-97) 03/06/19 Unknown MCH 25 pg (28-32) L 03/06/19 Unknown MCHC 29 % (30-34) L 03/06/19 Unknown RDW 16.5 % (13.2-15.2) H 03/06/19 Unknown Plt Count 296 K/mm3 (140-440) 03/06/19 Unknown Lymph % (Auto) Set [employer] 03/06/19 Unknown [place] % (Auto) [employer] 03/06/19 Unknown Eos % (Auto) [employer] 03/06/19 Unknown Baso % (Auto) [employer] 03/06/19 Unknown Lymph # [employer] 03/06/19 Unknown [place] # [employer] 03/06/19 Unknown Eos # [employer] 03/06/19 Unknown Baso # [employer] 03/06/19 Unknown Add Manual Diff Complete 03/06/19 Unknown Total Counted 100 03/06/19 Unknown Seg Neutrophils % [employer] 03/06/19 Unknown Seg Neuts % (Manual) 68.0 % (40.0-70.0) 03/06/19 Unknown 7.0 % 03/06/19 Unknown 18.0 % (13.4-35.0) 03/06/19 Unknown Reactive Lymphs % (Man) 0 % 03/06/19 Unknown 3.0 % (0.0-7.3) 03/06/19 Unknown 0 % (0.0-4.3) 03/06/19 Unknown 1.0 % (0.0-1.8) 03/06/19 Unknown 3.0 % 03/06/19 Unknown 0 % 03/06/19 Unknown 0 % 03/06/19 Unknown 0 % 03/06/19 Unknown Nucleated RBC % Not Reportable 03/06/19 Unknown Seg Neutrophils # [employer] 03/06/19 Unknown Seg Neutrophils # Man 12.6 K/mm3 (1.8-7.7) H 03/06/19 Unknown Band Neutrophils # 1.3 K/mm3 03/06/19 Unknown 3.3 K/mm3 (1.2-5.4) 03/06/19 Unknown Abs React Lymphs (Man) 0.0 K/mm3 03/06/19 Unknown 0.6 K/mm3 (0.0-0.8) 03/06/19 Unknown 0.0 K/mm3 (0.0-0.4) 03/06/19 Unknown 0.2 K/mm3 (0.0-0.1) H 03/06/19 Unknown 0.6 K/mm3 03/06/19 Unknown 0.0 K/mm3 03/06/19 Unknown 0.0 K/mm3 03/06/19 Unknown Blast Cells # 0.0 K/mm3 03/06/19 Unknown WBC Morphology Not Reportable 03/06/19 Unknown WBC Morphology TNR 03/06/19 Unknown Hypersegmented Neuts Not Reportable 03/06/19 Unknown Hyposegmented Neuts Not Reportable 03/06/19 Unknown Hypogranular Neuts Not Reportable 03/06/19 Unknown Not Reportable 03/06/19 Unknown Not Reportable 03/06/19 Unknown Not Reportable 03/06/19 Unknown Not Reportable 03/06/19 Unknown Not Reportable 03/06/19 Unknown Not Reportable 03/06/19 Unknown Consistent w auto 03/06/19 Unknown Not Reportable 03/06/19 Unknown Plt Clumps, EDTA Not Reportable 03/06/19 Unknown Not Reportable 03/06/19 Unknown Not Reportable 03/06/19 Unknown Not Reportable 03/06/19 Unknown Plt Morphology Comment Not Reportable 03/06/19 Unknown RBC Morphology Not Reportable 03/06/19 Unknown Dimorphic RBCs Not Reportable 03/06/19 Unknown Not Reportable 03/06/19 Unknown 1+ 03/06/19 Unknown 1+ 03/06/19 Unknown Not Reportable 03/06/19 Unknown Not Reportable 03/06/19 Unknown Not Reportable 03/06/19 Unknown Not Reportable 03/06/19 Unknown Not Reportable 03/06/19 Unknown Not Reportable 03/06/19 Unknown Not Reportable 03/06/19 Unknown Not Reportable 03/06/19 Unknown 2+ 03/06/19 Unknown Not Reportable 03/06/19 Unknown Not Reportable 03/06/19 Unknown Not Reportable 03/06/19 Unknown Not Reportable 03/06/19 Unknown Not Reportable 03/06/19 Unknown Not Reportable 03/06/19 Unknown Not Reportable 03/06/19 Unknown Acanthocytes (Spur) Not Reportable 03/06/19 Unknown Rouleaux Not Reportable 03/06/19 Unknown Not Reportable 03/06/19 Unknown Not Reportable 03/06/19 Unknown Not Reportable 03/06/19 Unknown Not Reportable 03/06/19 Unknown Hem Pathologist Commnt No 03/06/19 Unknown Sodium 146 mmol/L (137-145) H 03/06/19 12:42 Potassium 4.2 mmol/L (3.6-5.0) 03/06/19 12:42 Chloride 111.7 mmol/L (98-107) H 03/06/19 12:42 Carbon Dioxide 19 mmol/L (22-30) L 03/06/19 12:42 20 mmol/L 03/06/19 12:42 BUN 20 mg/dL (7-17) H 03/06/19 12:42 1.3 mg/dL (0.7-1.2) H 03/06/19 12:42 Estimated GFR 48 ml/min 03/06/19 12:42 15 % 03/06/19 12:42 Glucose 121 mg/dL (65-100) H 03/06/19 12:42 POC Glucose 108 (70-105) H 03/06/19 12:37 Lactic Acid 1.90 mmol/L (0.7-2.0) 03/06/19 14:38 Calcium 8.7 mg/dL (8.4-10.2) 03/06/19 12:42 0.20 mg/dL (0.1-1.2) 03/06/19 12:42 AST 8 units/L (5-40) 03/06/19 12:42 ALT 13 units/L (7-56) 03/06/19 12:42 84 units/L (35-129) 03/06/19 12:42 26.0 umol/L (25-60) 03/06/19 14:38 0.039 ng/mL (0.00-0.029) H 03/06/19 12:42 5.9 g/dL (6.3-8.2) L 03/06/19 12:42 3.2 g/dL (3.9-5) L 03/06/19 12:42 1.2 % 03/06/19 12:42 Triglycerides 85 mg/dL (2-149) 03/06/19 12:42 Cholesterol 120 mg/dL (50-199) 03/06/19 12:42 71 mg/dL (50-130) 03/06/19 12:42 34 mg/dL (40-59) L 03/06/19 12:42 3.52 % 03/06/19 12:42 TSH 30.480 mlU/mL (0.270-4.200) H 03/06/19 12:42 Yellow (Yellow) 03/06/19 14:57 Clear (Clear) 03/06/19 14:57 5.0 (5.0-7.0) 03/06/19 14:57 Ur Specific [place] 1.011 (1.003-1.030) 03/06/19 14:57 <15 mg/dl mg/dL (Negative) 03/06/19 14:57 Neg mg/dL (Negative) 03/06/19 14:57 Neg mg/dL (Negative) 03/06/19 14:57 Neg (Negative) 03/06/19 14:57 Neg (Negative) 03/06/19 14:57 Neg (Negative) 03/06/19 14:57 < 2.0 mg/dL (<2.0) 03/06/19 14:57 Ur Leukocyte Esterase Neg (Negative) 03/06/19 14:57 1.0 /HPF (0.0-6.0) 03/06/19 14:57 2.0 /HPF (0.0-6.0) 03/06/19 14:57 Few /HPF 03/06/19 14:57 Salicylates < 0.3 mg/dL (2.8-20.0) L 03/06/19 12:42 Presumptive negative 03/06/19 14:57 Presumptive negative 03/06/19 14:57 Acetaminophen < 5.0 ug/mL (10.0-30.0) L 03/06/19 12:42 Ur Barbiturates Screen Presumptive negative 03/06/19 14:57 Ur Phencyclidine Scrn Presumptive negative 03/06/19 14:57 Ur Amphetamines Screen Presumptive negative 03/06/19 14:57 U Benzodiazepines Scrn Presumptive negative 03/06/19 14:57 Presumptive negative 03/06/19 14:57 U Marijuana (THC) Screen Presumptive negative 03/06/19 14:57 Disclamer 03/06/19 14:57 Plasma/Serum Alcohol < 0.01 % (0-0.07) 03/06/19 12:42 - Imaging and Cardiology Chest x-ray: report reviewed (NAF) Imaging and Cardiology: CT Head IMPRESSION: No acute intracranial process Mild generalized volume loss Atherosclerotic vascular disease . Assessment and Plan Advance Directives: Yes (ull code) VTE prophylaxis?: Chemical Plan of care discussed with patient/family: Yes - Patient Problems (1) Acute metabolic encephalopathy Current Visit: Yes Status: Acute Plan to address problem: Improving Empiric Abx Dehydration- IV fluids (2) Hypernatremia Current Visit: Yes Status: Acute Plan to address problem: IV 1/2 NS for now (3) Dementia with behavioral problem Current Visit: Yes Status: Chronic Qualifiers: Alzheimer's disease onset: unspecified onset Plan to address problem: Cont Aricept Namenda and clozarill (4) Elevated TSH Current Visit: Yes Status: Acute Plan to address problem: TSH 30.48 Synthyroid dose adjusted (5) TARAS (acute kidney injury) Current Visit: Yes Status: Acute Plan to address problem: ATN IV fluids ordered (6) T2DM (type 2 diabetes mellitus) Current Visit: Yes Status: Acute Qualifiers: Diabetes mellitus stemmer machine insulin use: without stemmer machine use Plan to address problem: COnt oral hypoglycemics COnt coverage (7) HTN (hypertension) Current Visit: Yes Status: Chronic Qualifiers: Hypertension type: essential hypertension Qualified Code(s): I10 - Essential (primary) hypertension Plan to address problem: Cont antihypertensives (8) Peripheral neuropathy Current Visit: Yes Status: Chronic Qualifiers: Peripheral neuropathy type: polyneuropathy, unspecified Qualified Code(s): G62.9 - Polyneuropathy, unspecified Plan to address problem: COnt gabapentin (9) HLD (hyperlipidemia) Current Visit: Yes Status: Chronic Qualifiers: Hyperlipidemia type: mixed hyperlipidemia Qualified Code(s): E78.2 - Mixed hyperlipidemia Plan to address problem: Cont statins (10) DVT prophylaxis Current Visit: Yes Status: Acute Plan to address problem: On Lovenox and GI propylaxis
[2019-03-06] MEDS: SODIUM CHLORIDE FLUSH SYRINGE 10 ML IV SCH (22:36)
[2019-03-06] MEDS: D5NS 1,000 ML IV SCH (23:23)
[2019-03-07] MEDS: NEURONTIN PO SCH ×2 (04:10→21:59)
[2019-03-07] MEDS: SYNTHROID PO SCH (05:42)
[2019-03-07 06:18] LABS: Alanine Aminotransferase 14 units/L (7-56); Albumin 3.6 g/dL (3.9-5); BUN/Creatinine Ratio 19; Blood Urea Nitrogen 17 mg/dL (7-17); Calcium 9.1 mg/dL (8.4-10.2); Hemolysis Index 4
[2019-03-07 06:21] LABS: Basophils # (Auto) 0.1 K/mm3 (0.0-0.1); Basophils % (Auto) 0.7 % (0.0-1.8); Eosinophils % (Auto) 0.1 % (0.0-4.3); Lymphocytes # (Auto) 3.2 K/mm3 (1.2-5.4); Lymphocytes % (Auto) 20.7 % (13.4-35.0); Mean Corpuscular HGB Conc 31 % (30-34); Mean Corpuscular Volume 79 fl (79-97); Monocytes % (Auto) 6.5 % (0.0-7.3); Platelet Count 325 K/mm3 (140-440); Red Blood Count 4.45 M/mm3 (3.65-5.03); Red Cell Distribution Width 14.5 % (13.2-15.2)
[2019-03-07] MEDS: GLUCOPHAGE PO SCH ×2 (09:00→17:36)
[2019-03-07] MEDS: TOPROL XL PO SCH (09:34)
[2019-03-07] MEDS: NAMENDA PO SCH (09:34)
[2019-03-07] MEDS: BABY ASPIRIN PO SCH (09:34)
[2019-03-07] MEDS: ZESTRIL PO SCH ×2 (09:35→21:58)
[2019-03-07] MEDS: SODIUM CHLORIDE FLUSH SYRINGE 10 ML IV SCH ×2 (09:35→21:59)
--- NOTE | 2019-03-07 09:57 | Progress Note ---
Assessment and Plan Assessment and plan: Acute metabolic encephalopathy. Neurochecks haldol prn for agitation Hypernatremia improved TARAS due to vasomotor nephropathy Now resolved leukocytosis Monitor. No signs of infection Dementia Cont Aricept Bipolar disorder consult Psych Hypothyroidism TSH high On levothyroxine. Dose increased to 200 mcg daily Diabetes mellitus type 2 check fingerstick q ac/hs hypertension Monitor BP Full code status History Interval history: Altered mental status confused agitated Hospitalist Physical - Physical exam Narrative exam: Gen: Not in acute distress, sitting up in bed, HEENT: Normocephalic, atraumatic Neck: supple, no JVD Heart: S1 and S2 reg, no murmurs, rubs or gallop Lungs: Clear, no crackles, no wheeze Abd: soft, non tender, non distended, normal BS Ext: No edema, no clubbing, no cyanosis, Neuro: Awake,alert, confused, non focal - Constitutional Vitals: Temp Pulse Resp BP Pulse Ox 98.2 F 96 H 18 152/84 96 03/07/19 07:43 03/07/19 09:35 03/07/19 07:43 03/07/19 09:35 03/07/19 08:16 General appearance: Present: no acute distress, well-nourished Results - Labs CBC & Chem 7: 03/07/19 05:28 03/07/19 05:28 Labs: Laboratory Last Values WBC 15.4 K/mm3 (4.5-11.0) H 03/07/19 05:28 RBC 4.45 M/mm3 (3.65-5.03) 03/07/19 05:28 Hgb 11.0 gm/dl (10.1-14.3) 03/07/19 05:28 Hct 35.0 % (30.3-42.9) 03/07/19 05:28 MCV 79 fl (79-97) 03/07/19 05:28 MCH 25 pg (28-32) L 03/07/19 05:28 MCHC 31 % (30-34) 03/07/19 05:28 RDW 14.5 % (13.2-15.2) 03/07/19 05:28 Plt Count 325 K/mm3 (140-440) 03/07/19 05:28 Lymph % (Auto) 20.7 % (13.4-35.0) 03/07/19 05:28 [place] % (Auto) 6.5 % (0.0-7.3) 03/07/19 05:28 Eos % (Auto) 0.1 % (0.0-4.3) 03/07/19 05:28 Baso % (Auto) 0.7 % (0.0-1.8) 03/07/19 05:28 Lymph # 3.2 K/mm3 (1.2-5.4) 03/07/19 05:28 [place] # 1.0 K/mm3 (0.0-0.8) H 03/07/19 05:28 Eos # 0.0 K/mm3 (0.0-0.4) 03/07/19 05:28 Baso # 0.1 K/mm3 (0.0-0.1) 03/07/19 05:28 Add Manual Diff Complete 03/06/19 Unknown Total Counted 100 03/06/19 Unknown Seg Neutrophils % 72.0 % (40.0-70.0) H 03/07/19 05:28 Seg Neuts % (Manual) 68.0 % (40.0-70.0) 03/06/19 Unknown 7.0 % 03/06/19 Unknown 18.0 % (13.4-35.0) 03/06/19 Unknown Reactive Lymphs % (Man) 0 % 03/06/19 Unknown 3.0 % (0.0-7.3) 03/06/19 Unknown 0 % (0.0-4.3) 03/06/19 Unknown 1.0 % (0.0-1.8) 03/06/19 Unknown 3.0 % 03/06/19 Unknown 0 % 03/06/19 Unknown 0 % 03/06/19 Unknown 0 % 03/06/19 Unknown Nucleated RBC % Not Reportable 03/06/19 Unknown Seg Neutrophils # 11.1 K/mm3 (1.8-7.7) H 03/07/19 05:28 Seg Neutrophils # Man 12.6 K/mm3 (1.8-7.7) H 03/06/19 Unknown Band Neutrophils # 1.3 K/mm3 03/06/19 Unknown 3.3 K/mm3 (1.2-5.4) 03/06/19 Unknown Abs React Lymphs (Man) 0.0 K/mm3 03/06/19 Unknown 0.6 K/mm3 (0.0-0.8) 03/06/19 Unknown 0.0 K/mm3 (0.0-0.4) 03/06/19 Unknown 0.2 K/mm3 (0.0-0.1) H 03/06/19 Unknown 0.6 K/mm3 03/06/19 Unknown 0.0 K/mm3 03/06/19 Unknown 0.0 K/mm3 03/06/19 Unknown Blast Cells # 0.0 K/mm3 03/06/19 Unknown WBC Morphology Not Reportable 03/06/19 Unknown WBC Morphology TNR 03/06/19 Unknown Hypersegmented Neuts Not Reportable 03/06/19 Unknown Hyposegmented Neuts Not Reportable 03/06/19 Unknown Hypogranular Neuts Not Reportable 03/06/19 Unknown Not Reportable 03/06/19 Unknown Not Reportable 03/06/19 Unknown Not Reportable 03/06/19 Unknown Not Reportable 03/06/19 Unknown Not Reportable 03/06/19 Unknown Not Reportable 03/06/19 Unknown Consistent w auto 03/06/19 Unknown Not Reportable 03/06/19 Unknown Plt Clumps, EDTA Not Reportable 03/06/19 Unknown Not Reportable 03/06/19 Unknown Not Reportable 03/06/19 Unknown Not Reportable 03/06/19 Unknown Plt Morphology Comment Not Reportable 03/06/19 Unknown RBC Morphology Not Reportable 03/06/19 Unknown Dimorphic RBCs Not Reportable 03/06/19 Unknown Not Reportable 03/06/19 Unknown 1+ 03/06/19 Unknown 1+ 03/06/19 Unknown Not Reportable 03/06/19 Unknown Not Reportable 03/06/19 Unknown Not Reportable 03/06/19 Unknown Not Reportable 03/06/19 Unknown Not Reportable 03/06/19 Unknown Not Reportable 03/06/19 Unknown Not Reportable 03/06/19 Unknown Not Reportable 03/06/19 Unknown 2+ 03/06/19 Unknown Not Reportable 03/06/19 Unknown Not Reportable 03/06/19 Unknown Not Reportable 03/06/19 Unknown Not Reportable 03/06/19 Unknown Not Reportable 03/06/19 Unknown Not Reportable 03/06/19 Unknown Not Reportable 03/06/19 Unknown Acanthocytes (Spur) Not Reportable 03/06/19 Unknown Rouleaux Not Reportable 03/06/19 Unknown Not Reportable 03/06/19 Unknown Not Reportable 03/06/19 Unknown Not Reportable 03/06/19 Unknown Not Reportable 03/06/19 Unknown Hem Pathologist Commnt No 03/06/19 Unknown Sodium 145 mmol/L (137-145) 03/07/19 05:28 Potassium 3.9 mmol/L (3.6-5.0) 03/07/19 05:28 Chloride 111.4 mmol/L (98-107) H 03/07/19 05:28 Carbon Dioxide 23 mmol/L (22-30) 03/07/19 05:28 15 mmol/L 03/07/19 05:28 BUN 17 mg/dL (7-17) 03/07/19 05:28 0.9 mg/dL (0.7-1.2) 03/07/19 05:28 Estimated GFR > 60 ml/min 03/07/19 05:28 19 % 03/07/19 05:28 Glucose 110 mg/dL (65-100) H 03/07/19 05:28 POC Glucose 115 (70-105) H 03/07/19 07:46 Lactic Acid 1.90 mmol/L (0.7-2.0) 03/06/19 14:38 Calcium 9.1 mg/dL (8.4-10.2) 03/07/19 05:28 0.20 mg/dL (0.1-1.2) 03/07/19 05:28 AST 16 units/L (5-40) 03/07/19 05:28 ALT 14 units/L (7-56) 03/07/19 05:28 100 units/L (35-129) 03/07/19 05:28 26.0 umol/L (25-60) 03/06/19 14:38 < 0.010 ng/mL (0.00-0.029) 03/07/19 08:53 6.8 g/dL (6.3-8.2) 03/07/19 05:28 3.6 g/dL (3.9-5) L 03/07/19 05:28 1.1 % 03/07/19 05:28 Triglycerides 85 mg/dL (2-149) 03/06/19 12:42 Cholesterol 120 mg/dL (50-199) 03/06/19 12:42 71 mg/dL (50-130) 03/06/19 12:42 34 mg/dL (40-59) L 03/06/19 12:42 3.52 % 03/06/19 12:42 TSH 30.480 mlU/mL (0.270-4.200) H 03/06/19 12:42 Free T4 1.11 ng/dL (0.76-1.46) 03/07/19 08:53 Yellow (Yellow) 03/06/19 14:57 Clear (Clear) 03/06/19 14:57 5.0 (5.0-7.0) 03/06/19 14:57 Ur Specific [place] 1.011 (1.003-1.030) 03/06/19 14:57 <15 mg/dl mg/dL (Negative) 03/06/19 14:57 Neg mg/dL (Negative) 03/06/19 14:57 Neg mg/dL (Negative) 03/06/19 14:57 Neg (Negative) 03/06/19 14:57 Neg (Negative) 03/06/19 14:57 Neg (Negative) 03/06/19 14:57 < 2.0 mg/dL (<2.0) 03/06/19 14:57 Ur Leukocyte Esterase Neg (Negative) 03/06/19 14:57 1.0 /HPF (0.0-6.0) 03/06/19 14:57 2.0 /HPF (0.0-6.0) 03/06/19 14:57 Few /HPF 03/06/19 14:57 Salicylates < 0.3 mg/dL (2.8-20.0) L 03/06/19 12:42 Presumptive negative 03/06/19 14:57 Presumptive negative 03/06/19 14:57 Acetaminophen < 5.0 ug/mL (10.0-30.0) L 03/06/19 12:42 Ur Barbiturates Screen Presumptive negative 03/06/19 14:57 Ur Phencyclidine Scrn Presumptive negative 03/06/19 14:57 Ur Amphetamines Screen Presumptive negative 03/06/19 14:57 U Benzodiazepines Scrn Presumptive negative 03/06/19 14:57 Presumptive negative 03/06/19 14:57 U Marijuana (THC) Screen Presumptive negative 03/06/19 14:57 Disclamer 03/06/19 14:57 Plasma/Serum Alcohol < 0.01 % (0-0.07) 03/06/19 12:42 Active Medications - Current Medications Current Medications: Generic Name Dose Route Start Last Admin Trade Name Freq PRN Reason Stop Dose Admin Acetaminophen 650 mg 03/06/19 21:46 Tylenol PO Q4H PRN Pain MILD(1-3)/Fever >100.5/[facility]NEILL Aspirin 81 mg 03/07/19 10:00 03/07/19 09:34 Baby Aspirin PO 81 mg DAILY GIL Administration Atorvastatin Calcium 10 mg 03/07/19 10:00 03/07/19 09:34 Lipitor PO 10 mg DAILY GIL Administration Divalproex Sodium 250 mg 03/07/19 10:00 03/07/19 09:35 Depakote Er PO 250 mg BID GIL Administration Donepezil HCl 10 mg 03/07/19 22:00 Aricept PO QHS GIL Gabapentin 300 mg 03/07/19 04:00 03/07/19 04:10 Neurontin PO 300 mg BID GIL Administration Dextrose/Sodium Chloride 1,000 mls @ 100 mls/hr 03/06/19 22:00 03/06/19 23:23 D5ns IV 100 mls/hr DIRECT GIL Administration Levothyroxine Sodium 200 mcg 03/07/19 06:00 03/07/19 05:42 Synthroid PO 200 mcg DAILY@0600 GIL Administration Lisinopril 10 mg 03/07/19 10:00 03/07/19 09:35 Zestril PO 10 mg BID GIL Administration Memantine 5 mg 03/07/19 10:00 03/07/19 09:34 Namenda PO 5 mg DAILY GIL Administration Metformin HCl 500 mg 03/07/19 08:00 03/07/19 09:00 Glucophage PO 500 mg BIDDIAB GIL Administration Metoprolol Succinate 100 mg 03/07/19 10:00 03/07/19 09:34 Toprol Xl PO 100 mg DAILY GIL Administration Miscellaneous Medication 200 mg 03/07/19 10:00 Clozapine [Clozapine] PO QAM GIL Miscellaneous Medication 300 mg 03/07/19 18:00 Clozapine [Clozapine] PO QPM GIL Morphine Sulfate 2 mg 03/06/19 21:46 03/06/19 23:22 Morphine IV 2 mg Q4H PRN Administration Pain, Moderate (4-6) Ondansetron HCl 4 mg 03/06/19 21:46 Zofran IV Q8H PRN Nausea And Vomiting Oxycodone/Acetaminophen 1 tab 03/06/19 21:46 Percocet 5/325 PO Q6H PRN Pain, Moderate (4-6) Sodium Chloride 10 ml 03/06/19 22:00 03/07/19 09:35 Sodium Chloride Flush Syringe 10 Ml IV 10 ml BID GIL Administration Sodium Chloride 10 ml 03/06/19 21:46 Sodium Chloride Flush Syringe 10 Ml IV PRN PRN LINE FLUSH
[2019-03-07] MEDS ORDERED: NON-FORMULARY (Enalapril Maleate [Vasotec] 10 MG) PO SCH (10:00)
[2019-03-07] MEDS ORDERED: CLOZAPINE 200 MG PO SCH (10:00)
[2019-03-07] MEDS ORDERED: SYNTHROID PO SCH (10:00)
[2019-03-07] MEDS: HALDOL IM PRN (12:29)
--- NOTE | 2019-03-07 17:10 | Event Note ---
Date: 03/07/19 Told by Nurse that patient was on Clozapine but on hold because her levels were high on 03/02/19 as outpatient. Will order Clozapine level. Please follow and re- order Clozapine if levels normal. Psych consulted
[2019-03-07] MEDS ORDERED: CLOZAPINE 300 MG PO SCH (18:00)
[2019-03-07] MEDS: ARICEPT PO SCH (21:59)
[2019-03-07] MEDS: D5NS 1,000 ML IV SCH (22:47)
[2019-03-08] MEDS: HALDOL IM PRN (00:57)
[2019-03-08] MEDS: APRESOLINE IV PRN ×3 (00:57→12:19)
[2019-03-08] MEDS: SYNTHROID PO SCH (05:32)
[2019-03-08 05:35] LABS: Hematocrit 36.1 % (30.3-42.9); Hemoglobin 11.4 gm/dl (10.1-14.3); Mean Corpuscular HGB Conc 31 % (30-34); Mean Corpuscular Volume 79 fl (79-97); Platelet Count 329 K/mm3 (140-440); Red Blood Count 4.58 M/mm3 (3.65-5.03); Red Cell Distribution Width 14.3 % (13.2-15.2)
[2019-03-08 05:57] LABS: BUN/Creatinine Ratio 11; Blood Urea Nitrogen 10 mg/dL (7-17); Hemolysis Index 17
--- NOTE | 2019-03-08 08:03 | Progress Note ---
Assessment and Plan Assessment and plan: 73 yo female with hx of dementia, diabetes mellitus, HTN, subdural hemorrhage who presents from long-term facility for decreased level of consciousness. She fell alseep while sitting in a christian service. She was unresponsive. She received 2 mg IV naloxone 5 minutes prior to arrival. Blood glucose was normal. After sternal rub, she awakened with her eyes closed. She then attempted to talk. She was able to give her name. Hypertensive urgency - If no resolution on current medication, may need to start on cardene drip and transfer. - Per nursing staff, patient was agitated all night, this could have had a role Acute metabolic encephalopathy with delirium Neurochecks haldol prn for agitation CT Head was negative for Acute Pathology. MRI to enusure no other medical pathology KEEP ON Safety restriants for now. Review of documentation shows this was the same case during prior admission. Hypernatremia improved TARAS due to vasomotor nephropathy Now resolved leukocytosis Monitor. No signs of infection Dementia Cont Aricept Hypokalemia -REPLACE Bipolar disorder Told by Nurse that patient was on Clozapine but on hold because her levels were high on 03/02/19 as outpatient. Will order Clozapine level. Please follow and re- order Clozapine if levels normal. Psych consulted Hypothyroidism TSH high On levothyroxine. Dose increased to 200 mcg daily Diabetes mellitus type 2 check fingerstick q ac/hs Full code status History Interval history: Patient seen and examined, remains confused and encephalopathic, Per family this has been going on for 9 weeks and she is no longer wanting the patient to return to the old [facility] facility. Otherwise no other acute pathology noted. Hospitalist Physical - Physical exam Narrative exam: Gen: Not in acute distress, lying in bed, HEENT: Normocephalic, atraumatic Neck: supple, no JVD Heart: S1 and S2 reg, no murmurs, rubs or gallop Lungs: Clear, no crackles, no wheeze Abd: soft, non tender, non distended, normal BS Ext: No edema, no clubbing, no cyanosis, Neuro: Awake,alert, confused, non focal - Constitutional Vitals: Temp Pulse Resp BP Pulse Ox 98.5 F 104 H 18 209/100 98 03/08/19 04:13 03/08/19 04:47 03/08/19 04:13 03/08/19 04:47 03/08/19 04:13 General appearance: Present: no acute distress, well-nourished Results - Labs CBC & Chem 7: 03/08/19 05:03 03/08/19 05:03 Labs: Laboratory Last Values WBC 14.2 K/mm3 (4.5-11.0) H 03/08/19 05:03 RBC 4.58 M/mm3 (3.65-5.03) 03/08/19 05:03 Hgb 11.4 gm/dl (10.1-14.3) 03/08/19 05:03 Hct 36.1 % (30.3-42.9) 03/08/19 05:03 MCV 79 fl (79-97) 03/08/19 05:03 MCH 25 pg (28-32) L 03/08/19 05:03 MCHC 31 % (30-34) 03/08/19 05:03 RDW 14.3 % (13.2-15.2) 03/08/19 05:03 Plt Count 329 K/mm3 (140-440) 03/08/19 05:03 Lymph % (Auto) 20.7 % (13.4-35.0) 03/07/19 05:28 [place] % (Auto) 6.5 % (0.0-7.3) 03/07/19 05:28 Eos % (Auto) 0.1 % (0.0-4.3) 03/07/19 05:28 Baso % (Auto) 0.7 % (0.0-1.8) 03/07/19 05:28 Lymph # 3.2 K/mm3 (1.2-5.4) 03/07/19 05:28 [place] # 1.0 K/mm3 (0.0-0.8) H 03/07/19 05:28 Eos # 0.0 K/mm3 (0.0-0.4) 03/07/19 05:28 Baso # 0.1 K/mm3 (0.0-0.1) 03/07/19 05:28 Add Manual Diff Complete 03/06/19 Unknown Total Counted 100 03/06/19 Unknown Seg Neutrophils % 72.0 % (40.0-70.0) H 03/07/19 05:28 Seg Neuts % (Manual) 68.0 % (40.0-70.0) 03/06/19 Unknown 7.0 % 03/06/19 Unknown 18.0 % (13.4-35.0) 03/06/19 Unknown Reactive Lymphs % (Man) 0 % 03/06/19 Unknown 3.0 % (0.0-7.3) 03/06/19 Unknown 0 % (0.0-4.3) 03/06/19 Unknown 1.0 % (0.0-1.8) 03/06/19 Unknown 3.0 % 03/06/19 Unknown 0 % 03/06/19 Unknown 0 % 03/06/19 Unknown 0 % 03/06/19 Unknown Nucleated RBC % Not Reportable 03/06/19 Unknown Seg Neutrophils # 11.1 K/mm3 (1.8-7.7) H 03/07/19 05:28 Seg Neutrophils # Man 12.6 K/mm3 (1.8-7.7) H 03/06/19 Unknown Band Neutrophils # 1.3 K/mm3 03/06/19 Unknown 3.3 K/mm3 (1.2-5.4) 03/06/19 Unknown Abs React Lymphs (Man) 0.0 K/mm3 03/06/19 Unknown 0.6 K/mm3 (0.0-0.8) 03/06/19 Unknown 0.0 K/mm3 (0.0-0.4) 03/06/19 Unknown 0.2 K/mm3 (0.0-0.1) H 03/06/19 Unknown 0.6 K/mm3 03/06/19 Unknown 0.0 K/mm3 03/06/19 Unknown 0.0 K/mm3 03/06/19 Unknown Blast Cells # 0.0 K/mm3 03/06/19 Unknown WBC Morphology Not Reportable 03/06/19 Unknown WBC Morphology TNR 03/06/19 Unknown Hypersegmented Neuts Not Reportable 03/06/19 Unknown Hyposegmented Neuts Not Reportable 03/06/19 Unknown Hypogranular Neuts Not Reportable 03/06/19 Unknown Not Reportable 03/06/19 Unknown Not Reportable 03/06/19 Unknown Not Reportable 03/06/19 Unknown Not Reportable 03/06/19 Unknown Not Reportable 03/06/19 Unknown Not Reportable 03/06/19 Unknown Consistent w auto 03/06/19 Unknown Not Reportable 03/06/19 Unknown Plt Clumps, EDTA Not Reportable 03/06/19 Unknown Not Reportable 03/06/19 Unknown Not Reportable 03/06/19 Unknown Not Reportable 03/06/19 Unknown Plt Morphology Comment Not Reportable 03/06/19 Unknown RBC Morphology Not Reportable 03/06/19 Unknown Dimorphic RBCs Not Reportable 03/06/19 Unknown Not Reportable 03/06/19 Unknown 1+ 03/06/19 Unknown 1+ 03/06/19 Unknown Not Reportable 03/06/19 Unknown Not Reportable 03/06/19 Unknown Not Reportable 03/06/19 Unknown Not Reportable 03/06/19 Unknown Not Reportable 03/06/19 Unknown Not Reportable 03/06/19 Unknown Not Reportable 03/06/19 Unknown Not Reportable 03/06/19 Unknown 2+ 03/06/19 Unknown Not Reportable 03/06/19 Unknown Not Reportable 03/06/19 Unknown Not Reportable 03/06/19 Unknown Not Reportable 03/06/19 Unknown Not Reportable 03/06/19 Unknown Not Reportable 03/06/19 Unknown Not Reportable 03/06/19 Unknown Acanthocytes (Spur) Not Reportable 03/06/19 Unknown Rouleaux Not Reportable 03/06/19 Unknown Not Reportable 03/06/19 Unknown Not Reportable 03/06/19 Unknown Not Reportable 03/06/19 Unknown Not Reportable 03/06/19 Unknown Hem Pathologist Commnt No 03/06/19 Unknown Sodium 147 mmol/L (137-145) H 03/08/19 05:03 Potassium 3.5 mmol/L (3.6-5.0) L 03/08/19 05:03 Chloride 112.2 mmol/L (98-107) H 03/08/19 05:03 Carbon Dioxide 22 mmol/L (22-30) 03/08/19 05:03 16 mmol/L 03/08/19 05:03 BUN 10 mg/dL (7-17) 03/08/19 05:03 0.9 mg/dL (0.7-1.2) 03/08/19 05:03 Estimated GFR > 60 ml/min 03/08/19 05:03 11 % 03/08/19 05:03 Glucose 142 mg/dL (65-100) H 03/08/19 05:03 POC Glucose 164 (70-105) H 03/08/19 07:22 Lactic Acid 1.90 mmol/L (0.7-2.0) 03/06/19 14:38 Calcium 9.0 mg/dL (8.4-10.2) 03/08/19 05:03 0.20 mg/dL (0.1-1.2) 03/07/19 05:28 AST 16 units/L (5-40) 03/07/19 05:28 ALT 14 units/L (7-56) 03/07/19 05:28 100 units/L (35-129) 03/07/19 05:28 26.0 umol/L (25-60) 03/06/19 14:38 < 0.010 ng/mL (0.00-0.029) 03/07/19 14:32 6.8 g/dL (6.3-8.2) 03/07/19 05:28 3.6 g/dL (3.9-5) L 03/07/19 05:28 1.1 % 03/07/19 05:28 Triglycerides 85 mg/dL (2-149) 03/06/19 12:42 Cholesterol 120 mg/dL (50-199) 03/06/19 12:42 71 mg/dL (50-130) 03/06/19 12:42 34 mg/dL (40-59) L 03/06/19 12:42 3.52 % 03/06/19 12:42 TSH 30.480 mlU/mL (0.270-4.200) H 03/06/19 12:42 Free T4 1.11 ng/dL (0.76-1.46) 03/07/19 08:53 Yellow (Yellow) 03/06/19 14:57 Clear (Clear) 03/06/19 14:57 5.0 (5.0-7.0) 03/06/19 14:57 Ur Specific Summers 1.011 (1.003-1.030) 03/06/19 14:57 <15 mg/dl mg/dL (Negative) 03/06/19 14:57 Neg mg/dL (Negative) 03/06/19 14:57 Neg mg/dL (Negative) 03/06/19 14:57 Neg (Negative) 03/06/19 14:57 Neg (Negative) 03/06/19 14:57 Neg (Negative) 03/06/19 14:57 < 2.0 mg/dL (<2.0) 03/06/19 14:57 Ur Leukocyte Esterase Neg (Negative) 03/06/19 14:57 1.0 /HPF (0.0-6.0) 03/06/19 14:57 2.0 /HPF (0.0-6.0) 03/06/19 14:57 Few /HPF 03/06/19 14:57 Salicylates < 0.3 mg/dL (2.8-20.0) L 03/06/19 12:42 Presumptive negative 03/06/19 14:57 Presumptive negative 03/06/19 14:57 Acetaminophen < 5.0 ug/mL (10.0-30.0) L 03/06/19 12:42 Ur Barbiturates Screen Presumptive negative 03/06/19 14:57 Ur Phencyclidine Scrn Presumptive negative 03/06/19 14:57 Ur Amphetamines Screen Presumptive negative 03/06/19 14:57 U Benzodiazepines Scrn Presumptive negative 03/06/19 14:57 Presumptive negative 03/06/19 14:57 U Marijuana (THC) Screen Presumptive negative 03/06/19 14:57 Disclamer 03/06/19 14:57 Plasma/Serum Alcohol < 0.01 % (0-0.07) 03/06/19 12:42 Active Medications - Current Medications Current Medications: Generic Name Dose Route Start Last Admin Trade Name Freq PRN Reason Stop Dose Admin Acetaminophen 650 mg 03/06/19 21:46 Tylenol PO Q4H PRN Pain MILD(1-3)/Fever >100.5/MCNEILL Aspirin 81 mg 03/07/19 10:00 03/07/19 09:34 Baby Aspirin PO 81 mg DAILY GIL Administration Atorvastatin Calcium 10 mg 03/07/19 10:00 03/07/19 09:34 Lipitor PO 10 mg DAILY GIL Administration Divalproex Sodium 250 mg 03/07/19 10:00 03/07/19 21:58 Depakote Er PO 250 mg BID GIL Administration Donepezil HCl 10 mg 03/07/19 22:00 03/07/19 21:59 Aricept PO 10 mg QHS GIL Administration Gabapentin 300 mg 03/07/19 04:00 03/07/19 21:59 Neurontin PO 300 mg BID GIL Administration Haloperidol Lactate 5 mg 03/07/19 12:12 03/08/19 00:57 Haldol IM 5 mg Q6H PRN Administration Agitation Hydralazine HCl 20 mg 03/08/19 01:00 03/08/19 04:47 Apresoline IV 20 mg Q4HR PRN Administration SBP>165 Dextrose/Sodium Chloride 1,000 mls @ 100 mls/hr 03/06/19 22:00 03/07/19 22:47 D5ns IV 100 mls/hr DIRECT GIL Administration Levothyroxine Sodium 200 mcg 03/07/19 06:00 03/08/19 05:32 Synthroid PO 200 mcg DAILY@0600 GIL Administration Lisinopril 10 mg 03/07/19 10:00 03/07/19 21:58 Zestril PO 10 mg BID GIL Administration Memantine 5 mg 03/07/19 10:00 03/07/19 09:34 Namenda PO 5 mg DAILY GIL Administration Metformin HCl 500 mg 03/07/19 08:00 03/07/19 17:36 Glucophage PO 500 mg BIDDIAB GIL Administration Metoprolol Succinate 100 mg 03/07/19 10:00 03/07/19 09:34 Toprol Xl PO 100 mg DAILY GIL Administration Morphine Sulfate 2 mg 03/06/19 21:46 03/06/19 23:22 Morphine IV 2 mg Q4H PRN Administration Pain, Moderate (4-6) Ondansetron HCl 4 mg 03/06/19 21:46 Zofran IV Q8H PRN Nausea And Vomiting Oxycodone/Acetaminophen 1 tab 03/06/19 21:46 Percocet 5/325 PO Q6H PRN Pain, Moderate (4-6) Potassium Chloride 40 meq 03/08/19 08:02 Potassium Chloride FEEDTUBE 03/08/19 08:03 ONCE ONE Sodium Chloride 10 ml 03/06/19 22:00 03/07/19 21:59 Sodium Chloride Flush Syringe 10 Ml IV 10 ml BID GIL Administration Sodium Chloride 10 ml 03/06/19 21:46 Sodium Chloride Flush Syringe 10 Ml IV PRN PRN LINE FLUSH
[2019-03-08] MEDS: GLUCOPHAGE PO SCH ×2 (08:55→18:00)
[2019-03-08] MEDS: POTASSIUM CHLORIDE FEEDTUBE NR (09:35)
[2019-03-08] MEDS: TOPROL XL PO SCH (09:35)
[2019-03-08] MEDS: NEURONTIN PO SCH ×2 (09:35→21:27)
[2019-03-08] MEDS: ZESTRIL PO SCH ×2 (09:35→21:26)
[2019-03-08] MEDS: BABY ASPIRIN PO SCH (09:35)
[2019-03-08] MEDS: NAMENDA PO SCH (09:45)
[2019-03-08] MEDS: SODIUM CHLORIDE FLUSH SYRINGE 10 ML IV SCH ×2 (09:48→21:27)
[2019-03-08] MEDS: D5NS 1,000 ML IV SCH (12:13)
--- NOTE | 2019-03-08 13:30 | Consultation ---
History of Present Illness - Reason for Consult Consult date: 03/08/19 Reason for consult: Mental Health Evaluation Requesting physician: LIANNE BUCKNER - Chief Complaint Chief complaint: "The patient ramcira" - History of Present Psychiatric Illness 73 yo aa female who presented to the ER for decreased level of consciousness. Psychiatry was consulted to see the patient for psychosis. Today the patient is calm, but confused during the assessment. She could not answer any questions logically when asked. She was in restraints. Per the staff, the patient have been eating and drinking. Per the patient's medical chart (lab results), her Clozaril levels are elevated. This patient is known to be a poor historian. No gestures of SI/HI's. Medications and Allergies Allergies Allergy/AdvReac Type Severity Reaction Status Date / Time No Known Allergies Allergy Verified 07/16/18 15:02 Home Medications Medication Instructions Recorded Confirmed Last Taken Type Aspirin [Aspirin BABY CHEW TAB] 81 mg PO DAILY 07/26/17 03/06/19 Unknown History AtorvaSTATin [Lipitor] 10 mg PO DAILY 07/26/17 03/06/19 Unknown History Divalproex ER [Depakote ER] 250 mg PO BID 07/26/17 03/06/19 Unknown History Donepezil [Aricept] 10 mg PO QHS 07/26/17 03/06/19 Unknown History Enalapril Maleate [Vasotec] 10 mg PO BID 07/26/17 03/06/19 Unknown History Gabapentin [Neurontin] 300 mg PO BID 07/26/17 03/06/19 Unknown History Levothyroxine [Synthroid] 150 mcg PO DAILY 07/26/17 03/06/19 Unknown History Memantine [Namenda] 5 mg PO DAILY 07/26/17 03/06/19 Unknown History Metoprolol Xl [Metoprolol 100 mg PO DAILY 07/26/17 03/06/19 Unknown History SUCCINATE ER TAB] metFORMIN [Glucophage] 500 mg PO BID 07/26/17 03/06/19 Unknown History cloZAPine 200 mg PO QAM 03/06/19 03/06/19 Unknown History cloZAPine 300 mg PO QPM 03/06/19 03/06/19 Unknown History Active Meds: Active Medications Acetaminophen (Tylenol) 650 mg PO Q4H PRN PRN Reason: Pain MILD(1-3)/Fever >100.5/[facility]NEILL Aspirin (Baby Aspirin) 81 mg PO DAILY [facility] Last Admin: 03/08/19 09:35 Dose: 81 mg Documented by: Atorvastatin Calcium (Lipitor) 10 mg PO DAILY [facility] Last Admin: 03/08/19 09:35 Dose: 10 mg Documented by: Divalproex Sodium (Depakote Er) 250 mg PO BID [facility] Last Admin: 03/08/19 09:34 Dose: 250 mg Documented by: Donepezil HCl (Aricept) 10 mg PO QHS [facility] Last Admin: 03/07/19 21:59 Dose: 10 mg Documented by: Gabapentin (Neurontin) 300 mg PO BID [facility] Last Admin: 03/08/19 09:35 Dose: 300 mg Documented by: Haloperidol Lactate (Haldol) 5 mg IM Q6H PRN PRN Reason: Agitation Last Admin: 03/08/19 00:57 Dose: 5 mg Documented by: Hydralazine HCl (Apresoline) 20 mg IV Q4HR PRN PRN Reason: SBP>165 Last Admin: 03/08/19 12:19 Dose: 20 mg Documented by: Dextrose/Sodium Chloride (D5ns) 1,000 mls @ 100 mls/hr IV DIRECT [facility] Last Admin: 03/08/19 12:13 Dose: 100 mls/hr Documented by: Levothyroxine Sodium (Synthroid) 200 mcg PO DAILY@0600 [facility] Last Admin: 03/08/19 05:32 Dose: 200 mcg Documented by: Lisinopril (Zestril) 10 mg PO BID [facility] Last Admin: 03/08/19 09:35 Dose: 10 mg Documented by: Memantine (Namenda) 5 mg PO DAILY [facility] Last Admin: 03/08/19 09:45 Dose: 5 mg Documented by: Metformin HCl (Glucophage) 500 mg PO BIDDIAB [facility] Last Admin: 03/08/19 08:55 Dose: 500 mg Documented by: Metoprolol Succinate (Toprol Xl) 100 mg PO DAILY [facility] Last Admin: 03/08/19 09:35 Dose: 100 mg Documented by: Morphine Sulfate (Morphine) 2 mg IV Q4H PRN PRN Reason: Pain, Moderate (4-6) Last Admin: 03/06/19 23:22 Dose: 2 mg Documented by: Ondansetron HCl (Zofran) 4 mg IV Q8H PRN PRN Reason: Nausea And Vomiting Oxycodone/Acetaminophen (Percocet 5/325) 1 tab PO Q6H PRN PRN Reason: Pain, Moderate (4-6) Sodium Chloride (Sodium Chloride Flush Syringe 10 Ml) 10 ml IV BID GIL Last Admin: 03/08/19 09:48 Dose: 10 ml Documented by: Sodium Chloride (Sodium Chloride Flush Syringe 10 Ml) 10 ml IV PRN PRN PRN Reason: LINE FLUSH Past psychiatric history - Past Medical History Past Medical History: diabetes, hypertension Past Surgical History: Other (Unable to obtain ) - past Psychiatric treatment and history psychiatric treatment history: Hx of Schizophrenia. Unable to obtain a fam psy h x. - Social History Social history: other (Reside at a [facility]) Mental Status Exam - Vital signs Last Vital Signs Temp 97.7 F 03/08/19 07:17 Pulse 100 H 03/08/19 12:19 Resp 18 03/08/19 07:17 BP 172/81 03/08/19 12:19 Pulse Ox 97 03/08/19 12:00 - Exam Narrative exam: MSE: Appearance: calm Behavior: regular eye contact Speech: rambles Mood: unable to assess Affect: flat Thought Process: tangential Thought Content: no gestures of SI/HI's Motor Activity: ambulatory Cognition: alert with confusion Insight: poor Judgment: poor Results Result Diagrams: 03/08/19 05:03 03/08/19 05:03 Abnormal lab results 03/07/19 03/07/19 03/08/19 Range/Units 16:37 21:43 05:03 WBC 14.2 H (4.5-11.0) K/mm3 MCH 25 L (28-32) pg Sodium (137-145) mmol/L Potassium (3.6-5.0) mmol/L Chloride (98-107) mmol/L Glucose (65-100) mg/dL POC Glucose 143 H 169 H (70-105) 03/08/19 03/08/19 Range/Units 05:03 07:22 WBC (4.5-11.0) K/mm3 MCH (28-32) pg Sodium 147 H (137-145) mmol/L Potassium 3.5 L (3.6-5.0) mmol/L Chloride 112.2 H (98-107) mmol/L Glucose 142 H (65-100) mg/dL POC Glucose 164 H (70-105) All other labs normal. Assessment and Plan Assessment and plan: Impression: Delirium. Hx of Schizophrenia/Dementia. Today the patient was confused during the assessment. The patient was in restraints. NA 147. WBC 14.2. Medical: Acute Metabolic Encephalopathy per the hospitalist Recommendation/Plan: Gather collateral information. Continue home medication Aricept 10 mg PO HS for dementia and Haldol 5 mg IM Q6hrs PRN for acute psy chosis. Clozaril levels are elevated (1100) per lab results that's in her medical chart. Dispo: Once the patient is medically clear, proper dispo will be determined Will staff with Dr Nette Henry.
[2019-03-08] MEDS ORDERED: ATIVAN IV ONE (15:23)
--- NOTE | 2019-03-08 16:29 | Magnetic Resonance Report ---
PROCEDURE: MR BRAIN WO CON TECHNIQUE: Magnetic resonance imaging of the brain was performed without contrast material. HISTORY: AMS COMPARISONS: None . FINDINGS: There is no evidence of intracranial hemorrhage. No parenchymal hemorrhage, mass lesions or mass effe ct are identified. No abnormal extra-axial fluid collections or masses are seen. The ventricles, the sulcal pattern and fissures are mildly diffusely prominent consistent with mild atrophy. No abnormal areas of restricted diffusion is seen that would suggest an acute ischemic event. There is mild incre ased T2 signal in the periventricular white matter without mass effect or restricted diffusion. The a ppearance suggests mild gliosis. The corpus callosum, region of the pituitary fossa and the foramen magnum show no abnormalities. There is minimal mucosal thickening in the ethmoid air cells. Paranasal sinuses otherwise are clear. The mastoid air cells are clear. IMPRESSION: No acute intracranial abnormalities are identified. There is evidence of mild atrophy and gliosis. Minimal paranasal sinus disease as described. This document is electronically signed by Shreyas Coreas MD., Mar 08 2019 04:27:43 PM ET
[2019-03-08] MEDS: ARICEPT PO SCH (21:26)
[2019-03-09] MEDS: D5NS 1,000 ML IV SCH (02:46)
[2019-03-09 06:27] LABS: BUN/Creatinine Ratio 13; Blood Urea Nitrogen 12 mg/dL (7-17); Calcium 8.4 mg/dL (8.4-10.2); Hemolysis Index 3
[2019-03-09] MEDS: SYNTHROID PO SCH (06:30)
[2019-03-09] MEDS: KCL 10MEQ/100ML 10 MEQ/100 ML BAG IV SCH ×5 (09:27→12:42)
[2019-03-09] MEDS: BABY ASPIRIN PO SCH (09:28)
[2019-03-09] MEDS: ZESTRIL PO SCH ×2 (09:28→22:35)
[2019-03-09] MEDS: GLUCOPHAGE PO SCH ×2 (09:29→17:11)
[2019-03-09] MEDS: TOPROL XL PO SCH (09:29)
[2019-03-09] MEDS: NAMENDA PO SCH (09:30)
[2019-03-09] MEDS: NEURONTIN PO SCH ×2 (09:30→22:34)
[2019-03-09] MEDS: D5W 1,000 ML IV SCH ×2 (09:38→17:25)
[2019-03-09] MEDS ORDERED: POTASSIUM CHLORIDE FEEDTUBE NR (10:00)
[2019-03-09] MEDS: POTASSIUM CHLORIDE FEEDTUBE NR (11:44)
--- NOTE | 2019-03-09 13:31 | Progress Note ---
Subjective - Reason for Consult Consult date: 03/09/19 Reason for consult: Psychiatric Follow-up Evaluation - Chief Complaint Chief complaint: "I feel good/better" Patient is a 73 yo female who presented to the ER for decreased level of consciousness. Psychiatry was consulted to see the patient for psychosis. Today the patient is calm, but confused during the assessment. She could not answer any questions logically when asked. She was in restraints. Per the staff, the patient have been eating and drinking. Per the patient's medical chart (lab results), her Clozaril levels are elevated. This patient is known to be a poor historian. Patient mood is noted to be labile. She states " Go to hell. Get the hell out of here." No gestures of SI/HI's. Mental Status Exam - Vital signs Last Vital Signs Temp 98.6 F 03/09/19 07:33 Pulse 88 03/09/19 09:28 Resp 18 03/09/19 07:33 BP 156/85 03/09/19 09:28 Pulse Ox 98 03/09/19 07:33 - Exam Narrative exam: Mental Status Exam: Appearance: calm Behavior: regular eye contact Speech: rambles Mood: labile, easily irritable Affect: flat Thought Process: disorganized Thought Content: no gestures of SI/HI's Motor Activity: ambulatory Cognition: alert with confusion Insight: poor Judgment: poor Assessment and Plan Impression: Delirium. Hx of Schizophrenia/Dementia. Today the patient was confused during the assessment. Mood is labile. The patient was in restraints. NA 147. WBC 14.2 03/08/19. Medical: Acute Metabolic Encephalopathy per the hospitalist Recommendation/Plan: 1. Gather collateral information. 2. Continue home medication Aricept 10 mg PO HS for dementia and Haldol 5 mg IM Q6hrs PRN for acute psychosis. Clozaril levels are elevated (1100) per lab results that's in her medical chart. Disposition: Once the patient is medically clear, proper disposition will be determined Will staff with Dr. Nette Henry.
--- NOTE | 2019-03-09 13:34 | Progress Note ---
Assessment and Plan Assessment and plan: 73 yo female with hx of dementia, diabetes mellitus, HTN, subdural hemorrhage who presents from [facility] facility for decreased level of consciousness. She fell alseep while sitting in a [employer]. She was unresponsive. She received 2 mg IV naloxone 5 minutes prior to arrival. Blood glucose was normal. After sternal rub, she awakened with her eyes closed. She then attempted to talk. She was able to give her name. Hypertensive urgency - Resolved, Continue current treatment Acute metabolic encephalopathy with delirium Neurochecks haldol prn for agitation CT Head was negative for Acute Pathology. MRI NEGATIVE Discussed with daughter, patient has had manic episode for about 9 weeks, she reports that this has Happened bfore and that the patient has been abusive to other staff at the SNF facility and Patients KEEP ON Safety restraints for now. Review of documentation shows this was the same case during prior admission. Hypernatremia Improved TARAS due to vasomotor nephropathy Now resolved leukocytosis Monitor. No signs of infection Dementia Cont Aricept Hypokalemia -REPLACE Bipolar disorder Told by Nurse that patient was on Clozapine but on hold because her levels were high on 03/02/19 as outpatient. Will order Clozapine level. Please follow and re- order Clozapine if levels normal. Psych consulted Hypothyroidism TSH high On levothyroxine. Dose increased to 200 mcg daily Hypernatremia Change fluids to D5W Diabetes mellitus type 2 check fingerstick q ac/hs Full code status History Interval history: Patient seen and examined, Patient very hyperverbal, and unsteady gait and not following commands. Hospitalist Physical - Physical exam Narrative exam: Gen: Not in acute distress, lying in bed, HEENT: Normocephalic, atraumatic Neck: supple, no JVD Heart: S1 and S2 reg, no murmurs, rubs or gallop Lungs: Clear, no crackles, no wheeze Abd: soft, non tender, non distended, normal BS Ext: No edema, no clubbing, no cyanosis, Neuro: Awake,alert, confused, non focal - Constitutional Vitals: Temp Pulse Resp BP Pulse Ox 98.6 F 88 18 156/85 98 03/09/19 07:33 03/09/19 09:28 03/09/19 07:33 03/09/19 09:28 03/09/19 07:33 General appearance: Present: no acute distress, well-nourished Results - Labs CBC & Chem 7: 03/08/19 05:03 03/09/19 05:37 Labs: Laboratory Last Values WBC 14.2 K/mm3 (4.5-11.0) H 03/08/19 05:03 RBC 4.58 M/mm3 (3.65-5.03) 03/08/19 05:03 Hgb 11.4 gm/dl (10.1-14.3) 03/08/19 05:03 Hct 36.1 % (30.3-42.9) 03/08/19 05:03 MCV 79 fl (79-97) 03/08/19 05:03 MCH 25 pg (28-32) L 03/08/19 05:03 MCHC 31 % (30-34) 03/08/19 05:03 RDW 14.3 % (13.2-15.2) 03/08/19 05:03 Plt Count 329 K/mm3 (140-440) 03/08/19 05:03 Lymph % (Auto) 20.7 % (13.4-35.0) 03/07/19 05:28 [place] % (Auto) 6.5 % (0.0-7.3) 03/07/19 05:28 Eos % (Auto) 0.1 % (0.0-4.3) 03/07/19 05:28 Baso % (Auto) 0.7 % (0.0-1.8) 03/07/19 05:28 Lymph # 3.2 K/mm3 (1.2-5.4) 03/07/19 05:28 [place] # 1.0 K/mm3 (0.0-0.8) H 03/07/19 05:28 Eos # 0.0 K/mm3 (0.0-0.4) 03/07/19 05:28 Baso # 0.1 K/mm3 (0.0-0.1) 03/07/19 05:28 Add Manual Diff Complete 03/06/19 Unknown Total Counted 100 03/06/19 Unknown Seg Neutrophils % 72.0 % (40.0-70.0) H 03/07/19 05:28 Seg Neuts % (Manual) 68.0 % (40.0-70.0) 03/06/19 Unknown 7.0 % 03/06/19 Unknown 18.0 % (13.4-35.0) 03/06/19 Unknown Reactive Lymphs % (Man) 0 % 03/06/19 Unknown 3.0 % (0.0-7.3) 03/06/19 Unknown 0 % (0.0-4.3) 03/06/19 Unknown 1.0 % (0.0-1.8) 03/06/19 Unknown 3.0 % 03/06/19 Unknown 0 % 03/06/19 Unknown 0 % 03/06/19 Unknown 0 % 03/06/19 Unknown Nucleated RBC % Not Reportable 03/06/19 Unknown Seg Neutrophils # 11.1 K/mm3 (1.8-7.7) H 03/07/19 05:28 Seg Neutrophils # Man 12.6 K/mm3 (1.8-7.7) H 03/06/19 Unknown Band Neutrophils # 1.3 K/mm3 03/06/19 Unknown 3.3 K/mm3 (1.2-5.4) 03/06/19 Unknown Abs React Lymphs (Man) 0.0 K/mm3 03/06/19 Unknown 0.6 K/mm3 (0.0-0.8) 03/06/19 Unknown 0.0 K/mm3 (0.0-0.4) 03/06/19 Unknown 0.2 K/mm3 (0.0-0.1) H 03/06/19 Unknown 0.6 K/mm3 03/06/19 Unknown 0.0 K/mm3 03/06/19 Unknown 0.0 K/mm3 03/06/19 Unknown Blast Cells # 0.0 K/mm3 03/06/19 Unknown WBC Morphology Not Reportable 03/06/19 Unknown WBC Morphology TNR 03/06/19 Unknown Hypersegmented Neuts Not Reportable 03/06/19 Unknown Hyposegmented Neuts Not Reportable 03/06/19 Unknown Hypogranular Neuts Not Reportable 03/06/19 Unknown Not Reportable 03/06/19 Unknown Not Reportable 03/06/19 Unknown Not Reportable 03/06/19 Unknown Not Reportable 03/06/19 Unknown Not Reportable 03/06/19 Unknown Not Reportable 03/06/19 Unknown Consistent w auto 03/06/19 Unknown Not Reportable 03/06/19 Unknown Plt Clumps, EDTA Not Reportable 03/06/19 Unknown Not Reportable 03/06/19 Unknown Not Reportable 03/06/19 Unknown Not Reportable 03/06/19 Unknown Plt Morphology Comment Not Reportable 03/06/19 Unknown RBC Morphology Not Reportable 03/06/19 Unknown Dimorphic RBCs Not Reportable 03/06/19 Unknown Not Reportable 03/06/19 Unknown 1+ 03/06/19 Unknown 1+ 03/06/19 Unknown Not Reportable 03/06/19 Unknown Not Reportable 03/06/19 Unknown Not Reportable 03/06/19 Unknown Not Reportable 03/06/19 Unknown Not Reportable 03/06/19 Unknown Not Reportable 03/06/19 Unknown Not Reportable 03/06/19 Unknown Not Reportable 03/06/19 Unknown 2+ 03/06/19 Unknown Not Reportable 03/06/19 Unknown Not Reportable 03/06/19 Unknown Not Reportable 03/06/19 Unknown Not Reportable 03/06/19 Unknown Not Reportable 03/06/19 Unknown Not Reportable 03/06/19 Unknown Not Reportable 03/06/19 Unknown Acanthocytes (Spur) Not Reportable 03/06/19 Unknown Rouleaux Not Reportable 03/06/19 Unknown Not Reportable 03/06/19 Unknown Not Reportable 03/06/19 Unknown Not Reportable 03/06/19 Unknown Not Reportable 03/06/19 Unknown Hem Pathologist Commnt No 03/06/19 Unknown Sodium 149 mmol/L (137-145) H 03/09/19 05:37 Potassium 3.5 mmol/L (3.6-5.0) L 03/09/19 05:37 Chloride 116.2 mmol/L (98-107) H 03/09/19 05:37 Carbon Dioxide 22 mmol/L (22-30) 03/09/19 05:37 14 mmol/L 03/09/19 05:37 BUN 12 mg/dL (7-17) 03/09/19 05:37 0.9 mg/dL (0.7-1.2) 03/09/19 05:37 Estimated GFR > 60 ml/min 03/09/19 05:37 13 % 03/09/19 05:37 Glucose 106 mg/dL (65-100) H 03/09/19 05:37 POC Glucose 126 (70-105) H 03/09/19 11:47 Lactic Acid 1.90 mmol/L (0.7-2.0) 03/06/19 14:38 Calcium 8.4 mg/dL (8.4-10.2) 03/09/19 05:37 Magnesium 1.70 mg/dL (1.7-2.3) 03/09/19 09:07 0.20 mg/dL (0.1-1.2) 03/07/19 05:28 AST 16 units/L (5-40) 03/07/19 05:28 ALT 14 units/L (7-56) 03/07/19 05:28 100 units/L (35-129) 03/07/19 05:28 26.0 umol/L (25-60) 03/06/19 14:38 < 0.010 ng/mL (0.00-0.029) 03/07/19 14:32 6.8 g/dL (6.3-8.2) 03/07/19 05:28 3.6 g/dL (3.9-5) L 03/07/19 05:28 1.1 % 03/07/19 05:28 Triglycerides 85 mg/dL (2-149) 03/06/19 12:42 Cholesterol 120 mg/dL (50-199) 03/06/19 12:42 71 mg/dL (50-130) 03/06/19 12:42 34 mg/dL (40-59) L 03/06/19 12:42 3.52 % 03/06/19 12:42 TSH 30.480 mlU/mL (0.270-4.200) H 03/06/19 12:42 Free T4 1.11 ng/dL (0.76-1.46) 03/07/19 08:53 Yellow (Yellow) 03/06/19 14:57 Clear (Clear) 03/06/19 14:57 5.0 (5.0-7.0) 03/06/19 14:57 Ur Specific [place] 1.011 (1.003-1.030) 03/06/19 14:57 <15 mg/dl mg/dL (Negative) 03/06/19 14:57 Neg mg/dL (Negative) 03/06/19 14:57 Neg mg/dL (Negative) 03/06/19 14:57 Neg (Negative) 03/06/19 14:57 Neg (Negative) 03/06/19 14:57 Neg (Negative) 03/06/19 14:57 < 2.0 mg/dL (<2.0) 03/06/19 14:57 Ur Leukocyte Esterase Neg (Negative) 03/06/19 14:57 1.0 /HPF (0.0-6.0) 03/06/19 14:57 2.0 /HPF (0.0-6.0) 03/06/19 14:57 Few /HPF 03/06/19 14:57 Salicylates < 0.3 mg/dL (2.8-20.0) L 03/06/19 12:42 Presumptive negative 03/06/19 14:57 Presumptive negative 03/06/19 14:57 Acetaminophen < 5.0 ug/mL (10.0-30.0) L 03/06/19 12:42 Ur Barbiturates Screen Presumptive negative 03/06/19 14:57 Ur Phencyclidine Scrn Presumptive negative 03/06/19 14:57 Ur Amphetamines Screen Presumptive negative 03/06/19 14:57 U Benzodiazepines Scrn Presumptive negative 03/06/19 14:57 Presumptive negative 03/06/19 14:57 U Marijuana (THC) Screen Presumptive negative 03/06/19 14:57 Disclamer 03/06/19 14:57 Plasma/Serum Alcohol < 0.01 % (0-0.07) 03/06/19 12:42 Active Medications - Current Medications Current Medications: Generic Name Dose Route Start Last Admin Trade Name Freq PRN Reason Stop Dose Admin Acetaminophen 650 mg 03/06/19 21:46 Tylenol PO Q4H PRN Pain MILD(1-3)/Fever >100.5/MCNEILL Aspirin 81 mg 03/07/19 10:00 03/09/19 09:28 Baby Aspirin PO 81 mg DAILY GIL Administration Atorvastatin Calcium 10 mg 03/07/19 10:00 03/09/19 09:29 Lipitor PO 10 mg DAILY GIL Administration Divalproex Sodium 250 mg 03/07/19 10:00 03/09/19 09:30 Depakote Er PO 250 mg BID GIL Administration Donepezil HCl 10 mg 03/07/19 22:00 03/08/19 21:26 Aricept PO 10 mg QHS GIL Administration Gabapentin 300 mg 03/07/19 04:00 03/09/19 09:30 Neurontin PO 300 mg BID GIL Administration Haloperidol Lactate 5 mg 03/07/19 12:12 03/08/19 00:57 Haldol IM 5 mg Q6H PRN Administration Agitation Hydralazine HCl 20 mg 03/08/19 01:00 03/08/19 12:19 Apresoline IV 20 mg Q4HR PRN Administration SBP>165 Dextrose 1,000 mls @ 100 mls/hr 03/09/19 09:00 03/09/19 09:38 D5w IV 100 mls/hr DIRECT GIL Administration Potassium Chloride 10 meq in 100 mls @ 100 mls/hr 03/09/19 10:00 03/09/19 12:42 Kcl 10meq/100ml IV 03/09/19 13:59 Not Given Q1H GIL Levothyroxine Sodium 200 mcg 03/07/19 06:00 03/09/19 06:30 Synthroid PO 200 mcg DAILY@0600 GIL Administration Lisinopril 10 mg 03/07/19 10:00 03/09/19 09:28 Zestril PO 10 mg BID GIL Administration Memantine 5 mg 03/07/19 10:00 03/09/19 09:30 Namenda PO 5 mg DAILY GIL Administration Metformin HCl 500 mg 03/07/19 08:00 03/09/19 09:29 Glucophage PO 500 mg BIDDIAB GIL Administration Metoprolol Succinate 100 mg 03/07/19 10:00 03/09/19 09:29 Toprol Xl PO 100 mg DAILY GIL Administration Morphine Sulfate 2 mg 03/06/19 21:46 03/06/19 23:22 Morphine IV 2 mg Q4H PRN Administration Pain, Moderate (4-6) Ondansetron HCl 4 mg 03/06/19 21:46 Zofran IV Q8H PRN Nausea And Vomiting Oxycodone/Acetaminophen 1 tab 03/06/19 21:46 Percocet 5/325 PO Q6H PRN Pain, Moderate (4-6) Sodium Chloride 10 ml 03/06/19 22:00 03/08/19 21:27 Sodium Chloride Flush Syringe 10 Ml IV 10 ml BID GIL Administration Sodium Chloride 10 ml 03/06/19 21:46 Sodium Chloride Flush Syringe 10 Ml IV PRN PRN LINE FLUSH
[2019-03-09] MEDS: SODIUM CHLORIDE FLUSH SYRINGE 10 ML IV SCH ×2 (17:14→22:36)
[2019-03-09] MEDS: ARICEPT PO SCH (22:34)
[2019-03-10] MEDS: D5W 1,000 ML IV SCH ×2 (04:12→18:47)
[2019-03-10 04:37] LABS: Hematocrit 33.3 % (30.3-42.9); Hemoglobin 10.7 gm/dl (10.1-14.3); Mean Corpuscular HGB Conc 32 % (30-34); Mean Corpuscular Volume 79 fl (79-97); Platelet Count 300 K/mm3 (140-440); Red Blood Count 4.22 M/mm3 (3.65-5.03); Red Cell Distribution Width 14.6 % (13.2-15.2)
[2019-03-10 04:59] LABS: BUN/Creatinine Ratio 11; Blood Urea Nitrogen 8 mg/dL (7-17); Calcium 8.6 mg/dL (8.4-10.2); Hemolysis Index 6
[2019-03-10] MEDS: SYNTHROID PO SCH (06:01)
--- NOTE | 2019-03-10 07:22 | Progress Note ---
Assessment and Plan Assessment and plan: 73 yo female with hx of dementia, diabetes mellitus, HTN, subdural hemorrhage who [facility] for [facility] level of consciousness. She fell alseep while sitting in a [employer] service. She was unresponsive. She received 2 mg IV naloxone 5 minutes prior to arrival. Blood glucose was normal. After sternal rub, she awakened with her eyes closed. She then attempted to talk. She was able to give her name. Patients hyperverbal behavior is not medical but psychiatric and at this time she is clinically medically stable for discharge from Medical stand point. Clozapem if restarted should be at a lower dose, will defer to psych team for this. For now started on klonopin. Hypertensive urgency - Resolved, Continue current treatment Acute metabolic encephalopathy with delirium Neurochecks haldol prn for agitation CT Head was negative for Acute Pathology. MRI NEGATIVE Discussed with daughter, patient has had manic episode for about 9 weeks, she reports that this has Happened bfore and that the patient has been abusive to other staff at the SNF facility and Patients KEEP ON Safety restraints for now. Review of documentation shows this was the same case during prior admission. [place] now 1013 awaiting placement in mental health clinic Hypernatremia Improved TARAS due to vasomotor nephropathy Now resolved leukocytosis Monitor. No signs of infection Dementia Cont Aricept Hypokalemia -REPLACE Bipolar disorder Told by Nurse that patient was on Clozapine but on hold because her levels were high on 03/02/19 as outpatient. Will order Clozapine level. Please follow and re- order Clozapine if levels normal. Psych consulted Hypothyroidism TSH high On levothyroxine. Dose increased to 200 mcg daily Hypernatremia Change fluids to D5W Diabetes mellitus type 2 check fingerstick q ac/hs Full code status Plan discussed in detail with daughter and Psych team History Interval history: Patient seen and examined, Patient very hyperverbal, and not following command Hospitalist Physical - Physical exam Narrative exam: Gen: Not in acute distress, lying in bed, on restraints HEENT: Normocephalic, atraumatic Neck: supple, no JVD Heart: S1 and S2 reg, no murmurs, rubs or gallop Lungs: Clear, no crackles, no wheeze Abd: soft, non tender, non distended, normal BS Ext: No edema, no clubbing, no cyanosis, Neuro: Awake,alert, confused, non focal - Constitutional Vitals: Temp Pulse Resp BP Pulse Ox 97.6 F 89 18 159/67 99 03/09/19 20:04 03/09/19 22:00 03/09/19 22:00 03/09/19 13:33 03/09/19 22:00 General appearance: Present: no acute distress, well-nourished Results - Labs CBC & Chem 7: 03/10/19 03:34 03/10/19 03:34 Labs: Laboratory Last Values WBC 12.7 K/mm3 (4.5-11.0) H 03/10/19 03:34 RBC 4.22 M/mm3 (3.65-5.03) 03/10/19 03:34 Hgb 10.7 gm/dl (10.1-14.3) 03/10/19 03:34 Hct 33.3 % (30.3-42.9) 03/10/19 03:34 MCV 79 fl (79-97) 03/10/19 03:34 MCH 25 pg (28-32) L 03/10/19 03:34 MCHC 32 % (30-34) 03/10/19 03:34 RDW 14.6 % (13.2-15.2) 03/10/19 03:34 Plt Count 300 K/mm3 (140-440) 03/10/19 03:34 Lymph % (Auto) 20.7 % (13.4-35.0) 03/07/19 05:28 [place] % (Auto) 6.5 % (0.0-7.3) 03/07/19 05:28 Eos % (Auto) 0.1 % (0.0-4.3) 03/07/19 05:28 Baso % (Auto) 0.7 % (0.0-1.8) 03/07/19 05:28 Lymph # 3.2 K/mm3 (1.2-5.4) 03/07/19 05:28 [place] # 1.0 K/mm3 (0.0-0.8) H 03/07/19 05:28 Eos # 0.0 K/mm3 (0.0-0.4) 03/07/19 05:28 Baso # 0.1 K/mm3 (0.0-0.1) 03/07/19 05:28 Add Manual Diff Complete 03/06/19 Unknown Total Counted 100 03/06/19 Unknown Seg Neutrophils % 72.0 % (40.0-70.0) H 03/07/19 05:28 Seg Neuts % (Manual) 68.0 % (40.0-70.0) 03/06/19 Unknown 7.0 % 03/06/19 Unknown 18.0 % (13.4-35.0) 03/06/19 Unknown Reactive Lymphs % (Man) 0 % 03/06/19 Unknown 3.0 % (0.0-7.3) 03/06/19 Unknown 0 % (0.0-4.3) 03/06/19 Unknown 1.0 % (0.0-1.8) 03/06/19 Unknown 3.0 % 03/06/19 Unknown 0 % 03/06/19 Unknown 0 % 03/06/19 Unknown 0 % 03/06/19 Unknown Nucleated RBC % Not Reportable 03/06/19 Unknown Seg Neutrophils # 11.1 K/mm3 (1.8-7.7) H 03/07/19 05:28 Seg Neutrophils # Man 12.6 K/mm3 (1.8-7.7) H 03/06/19 Unknown Band Neutrophils # 1.3 K/mm3 03/06/19 Unknown 3.3 K/mm3 (1.2-5.4) 03/06/19 Unknown Abs React Lymphs (Man) 0.0 K/mm3 03/06/19 Unknown 0.6 K/mm3 (0.0-0.8) 03/06/19 Unknown 0.0 K/mm3 (0.0-0.4) 03/06/19 Unknown 0.2 K/mm3 (0.0-0.1) H 03/06/19 Unknown 0.6 K/mm3 03/06/19 Unknown 0.0 K/mm3 03/06/19 Unknown 0.0 K/mm3 03/06/19 Unknown Blast Cells # 0.0 K/mm3 03/06/19 Unknown WBC Morphology Not Reportable 03/06/19 Unknown WBC Morphology TNR 03/06/19 Unknown Hypersegmented Neuts Not Reportable 03/06/19 Unknown Hyposegmented Neuts Not Reportable 03/06/19 Unknown Hypogranular Neuts Not Reportable 03/06/19 Unknown Not Reportable 03/06/19 Unknown Not Reportable 03/06/19 Unknown Not Reportable 03/06/19 Unknown Not Reportable 03/06/19 Unknown Not Reportable 03/06/19 Unknown Not Reportable 03/06/19 Unknown Consistent w auto 03/06/19 Unknown Not Reportable 03/06/19 Unknown Plt Clumps, EDTA Not Reportable 03/06/19 Unknown Not Reportable 03/06/19 Unknown Not Reportable 03/06/19 Unknown Not Reportable 03/06/19 Unknown Plt Morphology Comment Not Reportable 03/06/19 Unknown RBC Morphology Not Reportable 03/06/19 Unknown Dimorphic RBCs Not Reportable 03/06/19 Unknown Not Reportable 03/06/19 Unknown 1+ 03/06/19 Unknown 1+ 03/06/19 Unknown Not Reportable 03/06/19 Unknown Not Reportable 03/06/19 Unknown Not Reportable 03/06/19 Unknown Not Reportable 03/06/19 Unknown Not Reportable 03/06/19 Unknown Not Reportable 03/06/19 Unknown Not Reportable 03/06/19 Unknown Not Reportable 03/06/19 Unknown 2+ 03/06/19 Unknown Not Reportable 03/06/19 Unknown Not Reportable 03/06/19 Unknown Not Reportable 03/06/19 Unknown Not Reportable 03/06/19 Unknown Not Reportable 03/06/19 Unknown Not Reportable 03/06/19 Unknown Not Reportable 03/06/19 Unknown Acanthocytes (Spur) Not Reportable 03/06/19 Unknown Rouleaux Not Reportable 03/06/19 Unknown Not Reportable 03/06/19 Unknown Not Reportable 03/06/19 Unknown Not Reportable 03/06/19 Unknown Not Reportable 03/06/19 Unknown Hem Pathologist Commnt No 03/06/19 Unknown Sodium 144 mmol/L (137-145) 03/10/19 03:34 Potassium 4.0 mmol/L (3.6-5.0) 03/10/19 03:34 Chloride 113.6 mmol/L (98-107) H 03/10/19 03:34 Carbon Dioxide 22 mmol/L (22-30) 03/10/19 03:34 12 mmol/L 03/10/19 03:34 BUN 8 mg/dL (7-17) 03/10/19 03:34 0.7 mg/dL (0.7-1.2) 03/10/19 03:34 Estimated GFR > 60 ml/min 03/10/19 03:34 11 % 03/10/19 03:34 Glucose 129 mg/dL (65-100) H 03/10/19 03:34 POC Glucose 130 (70-105) H 03/09/19 21:29 Lactic Acid 1.90 mmol/L (0.7-2.0) 03/06/19 14:38 Calcium 8.6 mg/dL (8.4-10.2) 03/10/19 03:34 Magnesium 1.70 mg/dL (1.7-2.3) 03/09/19 09:07 0.20 mg/dL (0.1-1.2) 03/07/19 05:28 AST 16 units/L (5-40) 03/07/19 05:28 ALT 14 units/L (7-56) 03/07/19 05:28 100 units/L (35-129) 03/07/19 05:28 26.0 umol/L (25-60) 03/06/19 14:38 < 0.010 ng/mL (0.00-0.029) 03/07/19 14:32 6.8 g/dL (6.3-8.2) 03/07/19 05:28 3.6 g/dL (3.9-5) L 03/07/19 05:28 1.1 % 03/07/19 05:28 Triglycerides 85 mg/dL (2-149) 03/06/19 12:42 Cholesterol 120 mg/dL (50-199) 03/06/19 12:42 71 mg/dL (50-130) 03/06/19 12:42 34 mg/dL (40-59) L 03/06/19 12:42 3.52 % 03/06/19 12:42 TSH 30.480 mlU/mL (0.270-4.200) H 03/06/19 12:42 Free T4 1.11 ng/dL (0.76-1.46) 03/07/19 08:53 Yellow (Yellow) 03/06/19 14:57 Clear (Clear) 03/06/19 14:57 5.0 (5.0-7.0) 03/06/19 14:57 Ur Specific [place] 1.011 (1.003-1.030) 03/06/19 14:57 <15 mg/dl mg/dL (Negative) 03/06/19 14:57 Neg mg/dL (Negative) 03/06/19 14:57 Neg mg/dL (Negative) 03/06/19 14:57 Neg (Negative) 03/06/19 14:57 Neg (Negative) 03/06/19 14:57 Neg (Negative) 03/06/19 14:57 < 2.0 mg/dL (<2.0) 03/06/19 14:57 Ur Leukocyte Esterase Neg (Negative) 03/06/19 14:57 1.0 /HPF (0.0-6.0) 03/06/19 14:57 2.0 /HPF (0.0-6.0) 03/06/19 14:57 Few /HPF 03/06/19 14:57 Salicylates < 0.3 mg/dL (2.8-20.0) L 03/06/19 12:42 Presumptive negative 03/06/19 14:57 Presumptive negative 03/06/19 14:57 Acetaminophen < 5.0 ug/mL (10.0-30.0) L 03/06/19 12:42 Ur Barbiturates Screen Presumptive negative 03/06/19 14:57 Ur Phencyclidine Scrn Presumptive negative 03/06/19 14:57 Ur Amphetamines Screen Presumptive negative 03/06/19 14:57 U Benzodiazepines Scrn Presumptive negative 03/06/19 14:57 Presumptive negative 03/06/19 14:57 U Marijuana (THC) Screen Presumptive negative 03/06/19 14:57 Disclamer 03/06/19 14:57 Plasma/Serum Alcohol < 0.01 % (0-0.07) 03/06/19 12:42 Active Medications - Current Medications Current Medications: Generic Name Dose Route Start Last Admin Trade Name Freq PRN Reason Stop Dose Admin Acetaminophen 650 mg 03/06/19 21:46 Tylenol PO Q4H PRN Pain MILD(1-3)/Fever >100.5/MCNEILL Aspirin 81 mg 03/07/19 10:00 03/09/19 09:28 Baby Aspirin PO 81 mg DAILY GIL Administration Atorvastatin Calcium 10 mg 03/07/19 10:00 03/09/19 09:29 Lipitor PO 10 mg DAILY GIL Administration Divalproex Sodium 250 mg 03/07/19 10:00 03/09/19 22:35 Depakote Er PO 250 mg BID GIL Administration Donepezil HCl 10 mg 03/07/19 22:00 03/09/19 22:34 Aricept PO 10 mg QHS GIL Administration Gabapentin 300 mg 03/07/19 04:00 03/09/19 22:34 Neurontin PO 300 mg BID GIL Administration Haloperidol Lactate 5 mg 03/07/19 12:12 03/08/19 00:57 Haldol IM 5 mg Q6H PRN Administration Agitation Hydralazine HCl 20 mg 03/08/19 01:00 03/08/19 12:19 Apresoline IV 20 mg Q4HR PRN Administration SBP>165 Dextrose 1,000 mls @ 100 mls/hr 03/09/19 09:00 03/10/19 04:12 D5w IV 100 mls/hr DIRECT GIL Administration Levothyroxine Sodium 200 mcg 03/07/19 06:00 03/10/19 06:01 Synthroid PO 200 mcg DAILY@0600 GIL Administration Lisinopril 10 mg 03/07/19 10:00 03/09/19 22:35 Zestril PO 10 mg BID GIL Administration Memantine 5 mg 03/07/19 10:00 03/09/19 09:30 Namenda PO 5 mg DAILY GIL Administration Metformin HCl 500 mg 03/07/19 08:00 03/09/19 17:11 Glucophage PO 500 mg BIDDIAB GIL Administration Metoprolol Succinate 100 mg 03/07/19 10:00 03/09/19 09:29 Toprol Xl PO 100 mg DAILY GIL Administration Morphine Sulfate 2 mg 03/06/19 21:46 03/06/19 23:22 Morphine IV 2 mg Q4H PRN Administration Pain, Moderate (4-6) Ondansetron HCl 4 mg 03/06/19 21:46 Zofran IV Q8H PRN Nausea And Vomiting Oxycodone/Acetaminophen 1 tab 03/06/19 21:46 Percocet 5/325 PO Q6H PRN Pain, Moderate (4-6) Sodium Chloride 10 ml 03/06/19 22:00 03/09/19 22:36 Sodium Chloride Flush Syringe 10 Ml IV 10 ml BID GIL Administration Sodium Chloride 10 ml 03/06/19 21:46 Sodium Chloride Flush Syringe 10 Ml IV PRN PRN LINE FLUSH
--- NOTE | 2019-03-10 09:32 | Progress Note ---
Subjective - Reason for Consult Consult date: 03/10/19 Reason for consult: Psychiatr - Chief Complaint Chief complaint: "I want something" 73 yo female who presented to the ER for decreased level of consciousness. Psychiatry was consulted to see the patient for psychosis. Today the patient is calm, but disorganized during the assessment. She could not answer any questions logically. Per collateral information from the Dr Stanton, the patient's hospitalist he stated that she have been declining (at the SNF) for several weeks prior to being admitted to [facility]. No gestures of SI/HI's. The patient's daughter Lauren Giang was notified of the dispo of the patient [facility], she verbalized understanding. Mental Status Exam - Vital signs Last Vital Signs Temp 98.3 F 03/10/19 07:32 Pulse 89 03/10/19 07:32 Resp 18 03/10/19 07:32 BP 182/90 03/10/19 07:32 Pulse Ox 96 03/10/19 07:32 - Exam Narrative exam: MSE: Appearance: calm Behavior: regular eye contact Speech: pressured speech Mood: preoccupied Affect: flat Thought Process: disorganized Thought Content: no gestures of SI/HI's Motor Activity: in restraints Cognition: alert Insight: unable to assess Judgment: poor Assessment and Plan Impression: Delirium. Hx of Schizophrenia/Dementia. Today the patient was disorganized during the assessment. The patient was in restraints. DDx: Unspecified Psychosis Medical: Acute Metabolic Encephalopathy per the hospitalist Recommendation/Plan: Initiate 1013. Continue home medication Aricept 10 mg PO HS for dementia and Haldol 5 mg IM Q6hrs PRN for acute psychosis. Start Klonopin 0.25 mg PO BID for anxiety. Clozaril levels are elevated (1100) per lab results that's in her medical chart. Dispo: The patient was referred to inpatient psy services. Staffed with Dr Nette Henry.
[2019-03-10] MEDS: BABY ASPIRIN PO SCH (11:47)
[2019-03-10] MEDS: NEURONTIN PO SCH ×2 (11:48→21:50)
[2019-03-10] MEDS: NAMENDA PO SCH (11:48)
[2019-03-10] MEDS: TOPROL XL PO SCH (11:48)
[2019-03-10] MEDS: SODIUM CHLORIDE FLUSH SYRINGE 10 ML IV SCH ×2 (11:49→21:52)
[2019-03-10] MEDS: ZESTRIL PO SCH ×2 (11:49→21:51)
[2019-03-10] MEDS: GLUCOPHAGE PO SCH ×2 (11:51→18:47)
--- NOTE | 2019-03-10 16:40 | Discharge Summary ---
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 She fell alseep while sitting in a [employer] service. She was unresponsive. She received 2 mg IV naloxone 5 minutes prior to arrival. Blood glucose was normal. After sternal rub, she awakened with her eyes closed. She then attempted to talk. She was able to give her name. Admission patient's clonazepam was discontinued due to reported high dose. Repeat study still pending assessment test at this facility. The patient remains with flight of ideas hyperverbal behavior okay sure aggressive behavior. Family member reports that this has been ongoing for about 9 weeks. On discussion was psych patient was admitted 1013 and currently awaiting placement into a mental health facility. Clozapine was entirely discontinued and the patient was started on Klonopin at this time. Patient was treated for hyponatremia and also a cane which also resolved. Imaging studies remain negative. Patients hyperverbal behavior is not medical but psychiatric and at this time she is clinically medically stable for discharge from Medical stand point. Clozapem if restarted should be at a lower dose, will defer to psych team for this. For now started on klonopin. Had extensive discussion with patients daughter yesterday about the plan for discharge today and she verbalized understanding. Discharge Diagnosis Hypertensive urgency - Resolved, Continue current treatment Acute metabolic encephalopathy with delirium -restraints discontinued and patient doing well except for noted hyperverbal state Hypernatremia Improved TARAS due to vasomotor nephropathy Now resolved leukocytosis Monitor. No signs of infection Dementia Cont Aricept Hypokalemia -REPLACE Bipolar disorder Hypothyroidism TSH high On levothyroxine. Dose was increased to 200 mcg daily, advised family need to have a recheck in 6 weeks DM type 2 with hyperglycemia Disposition: [id number]/TX-[id number] PSY HOSP/PSY UNIT Time spent for discharge: 35 mins Core Measure Documentation - Palliative Care Palliative Care/ Comfort Measures: Not Applicable - Core Measures Any of the following diagnoses?: none Exam - Physical Exam Narrative exam: Gen: Not in acute distress, lying in bed, HEENT: Normocephalic, atraumatic Neck: supple, no JVD Heart: S1 and S2 reg, no murmurs, rubs or gallop Lungs: Clear, no crackles, no wheeze Abd: soft, non tender, non distended, normal BS Ext: No edema, no clubbing, no cyanosis, Neuro: Awake,alert, confused, non focal - Constitutional Vitals: Temp Pulse Resp BP Pulse Ox 98.3 F 89 18 182/90 96 03/10/19 07:32 03/10/19 11:49 03/10/19 07:32 03/10/19 11:49 03/10/19 07:32 Plan Activity: advance as tolerated, fall precautions Diet: diabetic Special Instructions: record daily BP diary, record blood sugar diary Follow up with: PRIMARY CAREMD [Referring] - 3-5 Days STEPHANIE WALLS MD [Staff Physician] - 7 Days
[2019-03-10] MEDS: ARICEPT PO SCH (21:51)
[2019-03-10] MEDS: APRESOLINE IV PRN (21:57)
[2019-03-11] MEDS: D5W 1,000 ML IV SCH ×2 (06:44→17:23)
[2019-03-11] MEDS: SYNTHROID PO SCH (06:45)
--- NOTE | 2019-03-11 07:40 | Progress Note ---
Assessment and Plan Assessment and plan: 73 yo female with hx of dementia, diabetes mellitus, HTN, subdural hemorrhage who presents from [facility] for decreased level of consciousness. She fell alseep while sitting in a [employer] service. She was unresponsive. She received 2 mg IV naloxone 5 minutes prior to arrival. Blood glucose was normal. After sternal rub, she awakened with her eyes closed. She then attempted to talk. She was able to give her name. Admission patient's clonazepam was discontinued due to reported high dose. Repeat study still pending assessment test at this facility. The patient remains with flight of ideas hyperverbal behavior okay sure aggressive behavior. Family member reports that this has been ongoing for about 9 weeks. On discussion was psych patient was admitted 1013 and currently awaiting placement into a mental health facility. Clozapine was entirely discontinued and the patient was started on Klonopin at this time. Patient was treated for hyponatremia and also a cane which also resolved. Imaging studies remain negative. Patients hyperverbal behavior is not medical but psychiatric and at this time she is clinically medically stable for discharge from Medical stand point. Clozapem if restarted should be at a lower dose, will defer to psych team for this. For now started on klonopin. Hypertensive urgency - Resolved, Continue current treatment Acute metabolic encephalopathy with delirium -Continue Haldol when necessary -KEEP ON Safety restraints for now. Review of documentation shows this was the same case during prior admission. -Patient now 1013 -awaiting placement in [facility] - Klonopin 0.25 mg PO BID for anxiety. Hypernatremia Improved TARAS due to vasomotor nephropathy Now resolved leukocytosis Monitor. No signs of infection Dementia Cont Aricept Hypokalemia -REPLACE Bipolar disorder Told by Nurse that patient was on Clozapine but on hold because her levels were high on 03/02/19 as outpatient. Will order Clozapine level. Please follow and re- order Clozapine if levels normal. Psych consulted Hypothyroidism TSH high On levothyroxine. Dose increased to 200 mcg daily Hypernatremia Change fluids to D5W Diabetes mellitus type 2 check fingerstick q ac/hs Full code status Plan discussed in detail with daughter and Psych team History Interval history: Patient seen and examined, Patient very hyperverbal, and not following command, now off restraints and being monitored Hospitalist Physical - Physical exam Narrative exam: Gen: Not in acute distress, lying in bed, on restraints HEENT: Normocephalic, atraumatic Neck: supple, no JVD Heart: S1 and S2 reg, no murmurs, rubs or gallop Lungs: Clear, no crackles, no wheeze Abd: soft, non tender, non distended, normal BS Ext: No edema, no clubbing, no cyanosis, Neuro: Awake,alert, confused, non focal - Constitutional Vitals: Temp Pulse Resp BP Pulse Ox 98.3 F 95 H 18 148/73 98 03/11/19 07:21 03/11/19 07:21 03/11/19 07:21 03/11/19 07:21 03/11/19 07:21 General appearance: Present: no acute distress, well-nourished Results - Labs CBC & Chem 7: 03/11/19 07:48 03/10/19 03:34 Labs: Laboratory Last Values WBC 12.7 K/mm3 (4.5-11.0) H 03/10/19 03:34 RBC 4.22 M/mm3 (3.65-5.03) 03/10/19 03:34 Hgb 10.7 gm/dl (10.1-14.3) 03/10/19 03:34 Hct 33.3 % (30.3-42.9) 03/10/19 03:34 MCV 79 fl (79-97) 03/10/19 03:34 MCH 25 pg (28-32) L 03/10/19 03:34 MCHC 32 % (30-34) 03/10/19 03:34 RDW 14.6 % (13.2-15.2) 03/10/19 03:34 Plt Count 300 K/mm3 (140-440) 03/10/19 03:34 Lymph % (Auto) 20.7 % (13.4-35.0) 03/07/19 05:28 [place] % (Auto) 6.5 % (0.0-7.3) 03/07/19 05:28 Eos % (Auto) 0.1 % (0.0-4.3) 03/07/19 05:28 Baso % (Auto) 0.7 % (0.0-1.8) 03/07/19 05:28 Lymph # 3.2 K/mm3 (1.2-5.4) 03/07/19 05:28 [place] # 1.0 K/mm3 (0.0-0.8) H 03/07/19 05:28 Eos # 0.0 K/mm3 (0.0-0.4) 03/07/19 05:28 Baso # 0.1 K/mm3 (0.0-0.1) 03/07/19 05:28 Add Manual Diff Complete 03/06/19 Unknown Total Counted 100 03/06/19 Unknown Seg Neutrophils % 72.0 % (40.0-70.0) H 03/07/19 05:28 Seg Neuts % (Manual) 68.0 % (40.0-70.0) 03/06/19 Unknown 7.0 % 03/06/19 Unknown 18.0 % (13.4-35.0) 03/06/19 Unknown Reactive Lymphs % (Man) 0 % 03/06/19 Unknown 3.0 % (0.0-7.3) 03/06/19 Unknown 0 % (0.0-4.3) 03/06/19 Unknown 1.0 % (0.0-1.8) 03/06/19 Unknown 3.0 % 03/06/19 Unknown 0 % 03/06/19 Unknown 0 % 03/06/19 Unknown 0 % 03/06/19 Unknown Nucleated RBC % Not Reportable 03/06/19 Unknown Seg Neutrophils # 11.1 K/mm3 (1.8-7.7) H 03/07/19 05:28 Seg Neutrophils # Man 12.6 K/mm3 (1.8-7.7) H 03/06/19 Unknown Band Neutrophils # 1.3 K/mm3 03/06/19 Unknown 3.3 K/mm3 (1.2-5.4) 03/06/19 Unknown Abs React Lymphs (Man) 0.0 K/mm3 03/06/19 Unknown 0.6 K/mm3 (0.0-0.8) 03/06/19 Unknown 0.0 K/mm3 (0.0-0.4) 03/06/19 Unknown 0.2 K/mm3 (0.0-0.1) H 03/06/19 Unknown 0.6 K/mm3 03/06/19 Unknown 0.0 K/mm3 03/06/19 Unknown 0.0 K/mm3 03/06/19 Unknown Blast Cells # 0.0 K/mm3 03/06/19 Unknown WBC Morphology Not Reportable 03/06/19 Unknown WBC Morphology TNR 03/06/19 Unknown Hypersegmented Neuts Not Reportable 03/06/19 Unknown Hyposegmented Neuts Not Reportable 03/06/19 Unknown Hypogranular Neuts Not Reportable 03/06/19 Unknown Not Reportable 03/06/19 Unknown Not Reportable 03/06/19 Unknown Not Reportable 03/06/19 Unknown Not Reportable 03/06/19 Unknown Not Reportable 03/06/19 Unknown Not Reportable 03/06/19 Unknown Consistent w auto 03/06/19 Unknown Not Reportable 03/06/19 Unknown Plt Clumps, EDTA Not Reportable 03/06/19 Unknown Not Reportable 03/06/19 Unknown Not Reportable 03/06/19 Unknown Not Reportable 03/06/19 Unknown Plt Morphology Comment Not Reportable 03/06/19 Unknown RBC Morphology Not Reportable 03/06/19 Unknown Dimorphic RBCs Not Reportable 03/06/19 Unknown Not Reportable 03/06/19 Unknown 1+ 03/06/19 Unknown 1+ 03/06/19 Unknown Not Reportable 03/06/19 Unknown Not Reportable 03/06/19 Unknown Not Reportable 03/06/19 Unknown Not Reportable 03/06/19 Unknown Not Reportable 03/06/19 Unknown Not Reportable 03/06/19 Unknown Not Reportable 03/06/19 Unknown Not Reportable 03/06/19 Unknown 2+ 03/06/19 Unknown Not Reportable 03/06/19 Unknown Not Reportable 03/06/19 Unknown Not Reportable 03/06/19 Unknown Not Reportable 03/06/19 Unknown Not Reportable 03/06/19 Unknown Not Reportable 03/06/19 Unknown Not Reportable 03/06/19 Unknown Acanthocytes (Spur) Not Reportable 03/06/19 Unknown Rouleaux Not Reportable 03/06/19 Unknown Not Reportable 03/06/19 Unknown Not Reportable 03/06/19 Unknown Not Reportable 03/06/19 Unknown Not Reportable 03/06/19 Unknown Hem Pathologist Commnt No 03/06/19 Unknown Sodium 144 mmol/L (137-145) 03/10/19 03:34 Potassium 4.0 mmol/L (3.6-5.0) 03/10/19 03:34 Chloride 113.6 mmol/L (98-107) H 03/10/19 03:34 Carbon Dioxide 22 mmol/L (22-30) 03/10/19 03:34 12 mmol/L 03/10/19 03:34 BUN 8 mg/dL (7-17) 03/10/19 03:34 0.7 mg/dL (0.7-1.2) 03/10/19 03:34 Estimated GFR > 60 ml/min 03/10/19 03:34 11 % 03/10/19 03:34 Glucose 129 mg/dL (65-100) H 03/10/19 03:34 POC Glucose 121 (70-105) H 03/10/19 22:32 Lactic Acid 1.90 mmol/L (0.7-2.0) 03/06/19 14:38 Calcium 8.6 mg/dL (8.4-10.2) 03/10/19 03:34 Magnesium 1.70 mg/dL (1.7-2.3) 03/09/19 09:07 0.20 mg/dL (0.1-1.2) 03/07/19 05:28 AST 16 units/L (5-40) 03/07/19 05:28 ALT 14 units/L (7-56) 03/07/19 05:28 100 units/L (35-129) 03/07/19 05:28 26.0 umol/L (25-60) 03/06/19 14:38 < 0.010 ng/mL (0.00-0.029) 03/07/19 14:32 6.8 g/dL (6.3-8.2) 03/07/19 05:28 3.6 g/dL (3.9-5) L 03/07/19 05:28 1.1 % 03/07/19 05:28 Triglycerides 85 mg/dL (2-149) 03/06/19 12:42 Cholesterol 120 mg/dL (50-199) 03/06/19 12:42 71 mg/dL (50-130) 03/06/19 12:42 34 mg/dL (40-59) L 03/06/19 12:42 3.52 % 03/06/19 12:42 TSH 30.480 mlU/mL (0.270-4.200) H 03/06/19 12:42 Free T4 1.11 ng/dL (0.76-1.46) 03/07/19 08:53 Yellow (Yellow) 03/06/19 14:57 Clear (Clear) 03/06/19 14:57 5.0 (5.0-7.0) 03/06/19 14:57 Ur Specific [place] 1.011 (1.003-1.030) 03/06/19 14:57 <15 mg/dl mg/dL (Negative) 03/06/19 14:57 Neg mg/dL (Negative) 03/06/19 14:57 Neg mg/dL (Negative) 03/06/19 14:57 Neg (Negative) 03/06/19 14:57 Neg (Negative) 03/06/19 14:57 Neg (Negative) 03/06/19 14:57 < 2.0 mg/dL (<2.0) 03/06/19 14:57 Ur Leukocyte Esterase Neg (Negative) 03/06/19 14:57 1.0 /HPF (0.0-6.0) 03/06/19 14:57 2.0 /HPF (0.0-6.0) 03/06/19 14:57 Few /HPF 03/06/19 14:57 Salicylates < 0.3 mg/dL (2.8-20.0) L 03/06/19 12:42 Presumptive negative 03/06/19 14:57 Presumptive negative 03/06/19 14:57 Acetaminophen < 5.0 ug/mL (10.0-30.0) L 03/06/19 12:42 Ur Barbiturates Screen Presumptive negative 03/06/19 14:57 Ur Phencyclidine Scrn Presumptive negative 03/06/19 14:57 Ur Amphetamines Screen Presumptive negative 03/06/19 14:57 U Benzodiazepines Scrn Presumptive negative 03/06/19 14:57 Presumptive negative 03/06/19 14:57 U Marijuana (THC) Screen Presumptive negative 03/06/19 14:57 Disclamer 03/06/19 14:57 Plasma/Serum Alcohol < 0.01 % (0-0.07) 03/06/19 12:42 Flexitest 1 03/07/19 08:15 Active Medications - Current Medications Current Medications: Generic Name Dose Route Start Last Admin Trade Name Frecarmen PRN Reason Stop Dose Admin Acetaminophen 650 mg 03/06/19 21:46 Tylenol PO Q4H PRN Pain MILD(1-3)/Fever >100.5/MCNEILL Aspirin 81 mg 03/07/19 10:00 03/10/19 11:47 Baby Aspirin PO 81 mg DAILY GIL Administration Atorvastatin Calcium 10 mg 03/07/19 10:00 03/10/19 11:47 Lipitor PO 10 mg DAILY GIL Administration Clonazepam 0.25 mg 03/10/19 10:00 03/10/19 21:50 Klonopin PO 0.25 mg BID GIL Administration Divalproex Sodium 250 mg 03/07/19 10:00 03/10/19 21:50 Depakote Er PO 250 mg BID GIL Administration Donepezil HCl 10 mg 03/07/19 22:00 03/10/19 21:51 Aricept PO 10 mg QHS GIL Administration Gabapentin 300 mg 03/07/19 04:00 03/10/19 21:50 Neurontin PO 300 mg BID GIL Administration Haloperidol Lactate 5 mg 03/07/19 12:12 03/08/19 00:57 Haldol IM 5 mg Q6H PRN Administration Agitation Hydralazine HCl 20 mg 03/08/19 01:00 03/10/19 21:57 Apresoline IV 20 mg Q4HR PRN Administration SBP>165 Dextrose 1,000 mls @ 100 mls/hr 03/09/19 09:00 03/11/19 06:44 D5w IV 100 mls/hr DIRECT GIL Administration Levothyroxine Sodium 200 mcg 03/07/19 06:00 03/11/19 06:45 Synthroid PO 200 mcg DAILY@0600 GIL Administration Lisinopril 10 mg 03/07/19 10:00 03/10/19 21:51 Zestril PO 10 mg BID GIL Administration Memantine 5 mg 03/07/19 10:00 03/10/19 11:48 Namenda PO 5 mg DAILY GIL Administration Metformin HCl 500 mg 03/07/19 08:00 03/10/19 18:47 Glucophage PO 500 mg BIDDIAB GIL Administration Metoprolol Succinate 100 mg 03/07/19 10:00 03/10/19 11:48 Toprol Xl PO 100 mg DAILY GIL Administration Ondansetron HCl 4 mg 03/06/19 21:46 Zofran IV Q8H PRN Nausea And Vomiting Sodium Chloride 10 ml 03/06/19 22:00 03/10/19 21:52 Sodium Chloride Flush Syringe 10 Ml IV 10 ml BID GIL Administration Sodium Chloride 10 ml 03/06/19 21:46 Sodium Chloride Flush Syringe 10 Ml IV PRN PRN LINE FLUSH
[2019-03-11 08:06] LABS: Basophils # (Auto) 0.1 K/mm3 (0.0-0.1); Basophils % (Auto) 0.7 % (0.0-1.8); Hemoglobin 11.5 gm/dl (10.1-14.3); Lymphocytes # (Auto) 2.3 K/mm3 (1.2-5.4); Lymphocytes % (Auto) 15.2 % (13.4-35.0); Mean Corpuscular HGB Conc 32 % (30-34); Mean Corpuscular Volume 78 fl (79-97); Monocytes # (Auto) 1.2 K/mm3 (0.0-0.8); Monocytes % (Auto) 8.1 % (0.0-7.3); Platelet Count 346 K/mm3 (140-440); Red Blood Count 4.62 M/mm3 (3.65-5.03); Red Cell Distribution Width 14.7 % (13.2-15.2)
--- NOTE | 2019-03-11 09:53 | Progress Note ---
Subjective - Reason for Consult Consult date: 03/11/19 Reason for consult: Psychiatry Follow-up - Chief Complaint Chief complaint: "The patient is rambling" 73 yo female who presented to the ER for decreased level of consciousness. Psychiatry was consulted to see the patient for psychosis. Today the patient was calm, but still disorganized during the assessment. She rambled throughout the interview. Her assigned nurse removed the restraints. The patient has a sitter. No gestures of SI/HI's. Mental Status Exam - Vital signs Last Vital Signs Temp 98.3 F 03/11/19 07:21 Pulse 95 H 03/11/19 07:21 Resp 18 03/11/19 07:21 BP 148/73 03/11/19 07:21 Pulse Ox 98 03/11/19 07:21 - Exam Narrative exam: MSE: Appearance: calm Behavior: regular eye contact Speech: pressured speech Mood: preoccupied Affect: congruent to mood Thought Process: disorganized Thought Content: no gestures of SI/HI's Motor Activity: sitting up in bed Cognition: alert Insight: unable to assess Judgment: poor Assessment and Plan Impression: Delirium. Hx of Schizophrenia/Dementia. Today the patient was calm, but still disorganized during the assessment. The restraints was removed, a sitter is in place. DDx: Unspecified Psychosis Medical: Acute Metabolic Encephalopathy per the hospitalist Recommendation/Plan: Continue 1013, Aricept 10 mg PO HS for dementia, Haldol 5 mg IM Q6hrs PRN for acute psychosis, and Klonopin 0.25 mg PO BID for anxiety. Dispo: The patient was referred to inpatient psy services. Will staff with Dr Nette Henry.
[2019-03-11] MEDS: TOPROL XL PO SCH (10:15)
[2019-03-11] MEDS: GLUCOPHAGE PO SCH ×2 (10:15→17:22)
[2019-03-11] MEDS: BABY ASPIRIN PO SCH (10:16)
[2019-03-11] MEDS: NAMENDA PO SCH (10:16)
[2019-03-11] MEDS: ZESTRIL PO SCH ×2 (10:16→21:08)
[2019-03-11] MEDS: NEURONTIN PO SCH ×2 (10:16→21:08)
[2019-03-11] MEDS: SODIUM CHLORIDE FLUSH SYRINGE 10 ML IV SCH (10:17)
[2019-03-11 19:05] VITALS: BP 135/77
[2019-03-11] MEDS: ARICEPT PO SCH (21:08)
== END 2019-03-11 21:43 | DRG 70 ==
LOC: ED 12:27 → 2B-ACE 16:39
PROVIDERS: ADMIT Internal Medicine; ATTEND Internal Medicine
DX: G93.41 Metabolic encephalopathy (principal); N17.0 Acute kidney failure with tubular necrosis; E87.0 Hyperosmolality and hypernatremia; F03.91 Unspecified dementia, unspecified severity, with behavioral disturbance; F05 Delirium due to known physiological condition; F30.9 Manic episode, unspecified; F29 Unspecified psychosis not due to a substance or known physiological condition; I16.0 Hypertensive urgency; E03.9 Hypothyroidism, unspecified; D72.829 Elevated white blood cell count, unspecified; F20.9 Schizophrenia, unspecified; E86.0 Dehydration; I10 Essential (primary) hypertension; F41.9 Anxiety disorder, unspecified; E87.6 Hypokalemia; M10.9 Gout, unspecified; E11.42 Type 2 diabetes mellitus with diabetic polyneuropathy; E78.2 Mixed hyperlipidemia; Z82.49 Family history of ischemic heart disease and other diseases of the circulatory system; Z79.82 Long term (current) use of aspirin; Z79.899 Other long term (current) drug therapy
CPT/HCPCS: 36415; 70450; 70551; 71045; 80048; 80053; 80061; 80164; 80307; 80320; 81001; 82140; 82150; 82962; 83690; 83735; 84439; 84443; 84484; 85007; 85025; 85027; 87040; 87086; G0378; A9270-GY; G0480; J0360; J1630; J2060; J2270; J2310; J3480; J7030; J7042; J7070

== ENCOUNTER 2019-03-16 20:40 | Inpatient (IN) | payer MEDICARE ==
--- NOTE | 2019-03-16 21:21 | Emergency Department Report ---
ED Altered Mental Status HPI - General Chief Complaint: Altered Mental Status Stated Complaint: AMS/LETHARGIC/DEHYDRATION Time Seen by Provider: 03/16/19 21:01 Source: EMS Mode of arrival: Stretcher Limitations: Altered Mental Status - History of Present Illness Initial Comments: Patient is a 73-year-old female that presents from [place] for evaluation for altered mental status and dehydration. History per caregiver at bedside. Patient is normally verbal but confused. Patient has been nonverbal and is not eating anything or drink anything for 3 days. The physician at [place] while patient evaluated for dehydration and altered mental status. MD Complaint: altered mental status, confusion, decreased responsiveness -: Sudden Severity: severe Consistency of Symptoms: getting worse Context: unknown - Related Data Home Medications Medication Instructions Recorded Confirmed Last Taken Aspirin [Aspirin BABY CHEW TAB] 81 mg PO DAILY 07/26/17 03/06/19 Unknown AtorvaSTATin [Lipitor] 10 mg PO DAILY 07/26/17 03/06/19 Unknown Divalproex ER [Depakote ER] 250 mg PO BID 07/26/17 03/06/19 Unknown Donepezil [Aricept] 5 mg PO BID 07/26/17 03/17/19 Unknown Enalapril Maleate [Vasotec] 10 mg PO BID 07/26/17 03/06/19 Unknown Gabapentin [Neurontin] 300 mg PO BID 07/26/17 03/06/19 Unknown Levothyroxine [Synthroid] 150 mcg PO DAILY 07/26/17 03/06/19 Unknown Memantine [Namenda] 5 mg PO DAILY 07/26/17 03/06/19 Unknown Metoprolol Xl [Metoprolol 50 mg PO DAILY 07/26/17 03/06/19 Unknown SUCCINATE ER TAB] metFORMIN [Glucophage] 500 mg PO BID 07/26/17 03/06/[address] 500 mg PO BID 03/17/19 03/17/19 Unknown Lisinopril [Zestril TAB] 10 mg PO DAILY 03/17/19 03/17/19 Unknown cloZAPine (NF) [Clozapine (Nf)] 25 mg PO BID 03/17/19 03/17/19 Unknown Previous Rx's Medication Instructions Recorded Last Taken Type clonazePAM [KlonoPIN] 0.25 mg PO BID tablet 03/10/19 Unknown Rx Allergies Allergy/AdvReac Type Severity Reaction Status Date / Time No Known Allergies Allergy Verified 07/16/18 15:02 ED Review of Systems ROS: Stated complaint: AMS/LETHARGIC/DEHYDRATION Other details as noted in HPI Comment: Unobtainable due to pts medical conditions ED Past Medical Hx - Past Medical History Previous Medical History?: Yes Hx Hypertension: Yes Hx Diabetes: Yes Hx Psychiatric Treatment: Yes Hx Dementia: Yes Additional medical history: Neuropathy, Gout, Bipolar, - Surgical History Past Surgical History?: No Additional Surgical History: Unknown - Family History Family history: no significant - Social History Smoking Status: Unknown if ever smoked Substance Use Type: Prescribed - Medications Home Medications: Home Medications Medication Instructions Recorded Confirmed Last Taken Type Aspirin [Aspirin BABY CHEW TAB] 81 mg PO DAILY 07/26/17 03/06/19 Unknown History AtorvaSTATin [Lipitor] 10 mg PO DAILY 07/26/17 03/06/19 Unknown History Divalproex ER [Depakote ER] 250 mg PO BID 07/26/17 03/06/19 Unknown History Donepezil [Aricept] 5 mg PO BID 07/26/17 03/17/19 Unknown History Enalapril Maleate [Vasotec] 10 mg PO BID 07/26/17 03/06/19 Unknown History Gabapentin [Neurontin] 300 mg PO BID 07/26/17 03/06/19 Unknown History Levothyroxine [Synthroid] 150 mcg PO DAILY 07/26/17 03/06/19 Unknown History Memantine [Namenda] 5 mg PO DAILY 07/26/17 03/06/19 Unknown History Metoprolol Xl [Metoprolol 50 mg PO DAILY 07/26/17 03/06/19 Unknown History SUCCINATE ER TAB] metFORMIN [Glucophage] 500 mg PO BID 07/26/17 03/06/19 Unknown History clonazePAM [KlonoPIN] 0.25 mg PO BID tablet 03/10/[address] 500 mg PO BID 03/17/19 03/17/19 Unknown History Lisinopril [Zestril TAB] 10 mg PO DAILY 03/17/19 03/17/19 Unknown History cloZAPine (NF) [Clozapine (Nf)] 25 mg PO BID 03/17/19 03/17/19 Unknown History ED Physical Exam - General Limitations: Altered Mental Status, Physical Limitation General appearance: alert, in no apparent distress - Head Head exam: Present: atraumatic, normocephalic - Eye Eye exam: Present: normal appearance, PERRL Pupils: Present: normal accommodation - ENT ENT exam: Present: mucous membranes moist - Neck Neck exam: Present: normal inspection - Respiratory Respiratory exam: Present: normal lung sounds bilaterally. Absent: respiratory distress, wheezes - Cardiovascular Cardiovascular Exam: Present: regular rate, normal rhythm. Absent: systolic murmur, diastolic murmur, rubs, gallop - GI/Abdominal GI/Abdominal exam: Present: soft, normal bowel sounds - Extremities Exam Extremities exam: Present: normal inspection - Back Exam Back exam: Present: normal inspection - Neurological Exam Neurological exam: Present: alert, altered - Expanded Neurological Exam Expanded Best Eye Response ([place]): (4) open spontaneously Best Motor Response ([place]): (5) localizes to pain Best Verbal Response ([place]): (2) incomprehsible sounds Binh Total: 11 - Skin Skin exam: Present: warm, dry, intact, normal color. Absent: rash - Assessment Assessment Interval: Baseline - Level of Consciousness 1a. Level of Consciousness: alert/keenly responsive - LOC Questions 1b. LOC Questions: answers no questions correctly - LOC Command 1c. LOC Commands: performs no tasks correctly - Best Gaze 2. Best Gaze: normal - Visual 3. Visual: no visual loss - Facial Palsy 4. Facial Palsy: normal symmetrical movement - Motor Arm 5a. Motor Arm Left: no drift 5b. Motor Arm Right: no drift - Motor Leg 6a. Motor Leg Left: no drift 6b. Motor Leg Right: no drift - Limb Ataxia 7. Limb Ataxia: absent - Sensory 8. Sensory: normal - Best Language 9. Best Language: mute/global aphasia - Dysarthria 10. Dysarthria: intubated or other barrier - Extinction and Inattention 11. Extinction/Inattention: no abnormality - Scoring Total Score: 7 Stroke Severity: Moderate Stroke ED Course Vital Signs 03/16/19 03/16/19 03/16/19 20:52 20:58 21:00 Temperature 97.9 F Pulse Rate 80 77 62 Respiratory 18 15 17 Rate Blood Pressure 157/70 173/96 O2 Sat by Pulse 98 99 97 Oximetry 03/16/19 03/16/19 03/16/19 21:31 22:01 22:40 Temperature Pulse Rate 69 59 L Respiratory 15 12 15 Rate Blood Pressure 170/60 159/63 O2 Sat by Pulse 100 99 99 Oximetry 03/16/19 03/16/19 03/17/19 23:01 23:30 00:00 Temperature Pulse Rate 60 53 L 65 Respiratory 15 19 19 Rate Blood Pressure 164/55 157/60 O2 Sat by Pulse 99 99 100 Oximetry - Reevaluation(s) Reevaluation #1: Discussed all results with family. Patient will be admitted to the hospitalist service. Family agrees to plan of care. 03/16/19 23:16 Since the patient is a 1013 anchor a new 1013 written for our facility. 03/16/19 23:28 - Consultations Consultation #1: Hospitalist consulted for admission. Hospitalist to admit patient. Hospitalist to assume care patient. 03/16/19 23:17 - Lab Data Result diagrams: 03/16/19 21:10 03/16/19 21:10 Lab Results 03/16/19 03/16/19 03/16/19 Range/Units 20:51 21:10 21:10 WBC 12.7 H (4.5-11.0) K/mm3 RBC 4.30 (3.65-5.03) M/mm3 Hgb 11.3 (10.1-14.3) gm/dl Hct 34.1 (30.3-42.9) % MCV 79 (79-97) fl MCH 26 L (28-32) pg MCHC 33 (30-34) % RDW 14.8 (13.2-15.2) % Plt Count 405 (140-440) K/mm3 Lymph % (Auto) 26.3 (13.4-35.0) % Walker % (Auto) 8.1 H (0.0-7.3) % Eos % (Auto) 0.2 (0.0-4.3) % Baso % (Auto) 0.9 (0.0-1.8) % Lymph # 3.3 (1.2-5.4) K/mm3 Walker # 1.0 H (0.0-0.8) K/mm3 Eos # 0.0 (0.0-0.4) K/mm3 Baso # 0.1 (0.0-0.1) K/mm3 Seg Neutrophils % 64.5 (40.0-70.0) % Seg Neutrophils # 8.2 H (1.8-7.7) K/mm3 Sodium 156 H (137-145) mmol/L Potassium 4.5 (3.6-5.0) mmol/L Chloride 120.6 H (98-107) mmol/L Carbon Dioxide 23 (22-30) mmol/L Anion Gap 17 mmol/L BUN 27 H (7-17) mg/dL Creatinine 0.9 (0.7-1.2) mg/dL Estimated GFR > 60 ml/min BUN/Creatinine Ratio 30 % Glucose 113 H (65-100) mg/dL POC Glucose 112 H (70-105) Lactic Acid (0.7-2.0) mmol/L Calcium 9.9 (8.4-10.2) mg/dL Total Bilirubin (0.1-1.2) mg/dL Direct Bilirubin (0-0.2) mg/dL Indirect Bilirubin mg/dL AST (5-40) units/L ALT (7-56) units/L Alkaline Phosphatase (35-129) units/L Ammonia (25-60) umol/L Total Creatine Kinase (30-135) units/L Total Protein (6.3-8.2) g/dL Albumin (3.9-5) g/dL Albumin/Globulin Ratio % Urine Color (Yellow) Urine Turbidity (Clear) Urine pH (5.0-7.0) Ur Specific [place] (1.003-1.030) Urine Protein (Negative) mg/dL Urine Glucose (UA) (Negative) mg/dL Urine Ketones (Negative) mg/dL Urine Blood (Negative) Urine Nitrite (Negative) Urine Bilirubin (Negative) Urine Urobilinogen (<2.0) mg/dL Ur Leukocyte Esterase (Negative) Urine WBC (Auto) (0.0-6.0) /HPF Urine RBC (Auto) (0.0-6.0) /HPF Urine Mucus /HPF Salicylates (2.8-20.0) mg/dL Urine Opiates Screen Urine Methadone Screen Acetaminophen (10.0-30.0) ug/mL Ur Barbiturates Screen Ur Phencyclidine Scrn Ur Amphetamines Screen U Benzodiazepines Scrn Urine Cocaine Screen U Marijuana (THC) Screen Drugs of Abuse Note 03/16/19 03/16/19 03/16/19 Range/Units 21:30 21:30 21:30 WBC (4.5-11.0) K/mm3 RBC (3.65-5.03) M/mm3 Hgb (10.1-14.3) gm/dl Hct (30.3-42.9) % MCV (79-97) fl MCH (28-32) pg MCHC (30-34) % RDW (13.2-15.2) % Plt Count (140-440) K/mm3 Lymph % (Auto) (13.4-35.0) % Walker % (Auto) (0.0-7.3) % Eos % (Auto) (0.0-4.3) % Baso % (Auto) (0.0-1.8) % Lymph # (1.2-5.4) K/mm3 Walker # (0.0-0.8) K/mm3 Eos # (0.0-0.4) K/mm3 Baso # (0.0-0.1) K/mm3 Seg Neutrophils % (40.0-70.0) % Seg Neutrophils # (1.8-7.7) K/mm3 Sodium (137-145) mmol/L Potassium (3.6-5.0) mmol/L Chloride (98-107) mmol/L Carbon Dioxide (22-30) mmol/L Anion Gap mmol/L BUN (7-17) mg/dL Creatinine (0.7-1.2) mg/dL Estimated GFR ml/min BUN/Creatinine Ratio % Glucose (65-100) mg/dL POC Glucose (70-105) Lactic Acid (0.7-2.0) mmol/L Calcium (8.4-10.2) mg/dL Total Bilirubin 0.30 (0.1-1.2) mg/dL Direct Bilirubin < 0.2 (0-0.2) mg/dL Indirect Bilirubin 0.1 mg/dL AST 36 (5-40) units/L ALT 25 (7-56) units/L Alkaline Phosphatase 120 (35-129) units/L Ammonia (25-60) umol/L Total Creatine Kinase (30-135) units/L Total Protein 6.8 (6.3-8.2) g/dL Albumin 3.8 L (3.9-5) g/dL Albumin/Globulin Ratio 1.3 % Urine Color (Yellow) Urine Turbidity (Clear) Urine pH (5.0-7.0) Ur Specific [place] (1.003-1.030) Urine Protein (Negative) mg/dL Urine Glucose (UA) (Negative) mg/dL Urine Ketones (Negative) mg/dL Urine Blood (Negative) Urine Nitrite (Negative) Urine Bilirubin (Negative) Urine Urobilinogen (<2.0) mg/dL Ur Leukocyte Esterase (Negative) Urine WBC (Auto) (0.0-6.0) /HPF Urine RBC (Auto) (0.0-6.0) /HPF Urine Mucus /HPF Salicylates < 0.3 L (2.8-20.0) mg/dL Urine Opiates Screen Urine Methadone Screen Acetaminophen < 5.0 L (10.0-30.0) ug/mL Ur Barbiturates Screen Ur Phencyclidine Scrn Ur Amphetamines Screen U Benzodiazepines Scrn Urine Cocaine Screen U Marijuana (THC) Screen Drugs of Abuse Note 03/16/19 03/16/19 03/16/19 Range/Units 21:31 21:31 21:34 WBC (4.5-11.0) K/mm3 RBC (3.65-5.03) M/mm3 Hgb (10.1-14.3) gm/dl Hct (30.3-42.9) % MCV (79-97) fl MCH (28-32) pg MCHC (30-34) % RDW (13.2-15.2) % Plt Count (140-440) K/mm3 Lymph % (Auto) (13.4-35.0) % Walker % (Auto) (0.0-7.3) % Eos % (Auto) (0.0-4.3) % Baso % (Auto) (0.0-1.8) % Lymph # (1.2-5.4) K/mm3 Walker # (0.0-0.8) K/mm3 Eos # (0.0-0.4) K/mm3 Baso # (0.0-0.1) K/mm3 Seg Neutrophils % (40.0-70.0) % Seg Neutrophils # (1.8-7.7) K/mm3 Sodium (137-145) mmol/L Potassium (3.6-5.0) mmol/L Chloride (98-107) mmol/L Carbon Dioxide (22-30) mmol/L Anion Gap mmol/L BUN (7-17) mg/dL Creatinine (0.7-1.2) mg/dL Estimated GFR ml/min BUN/Creatinine Ratio % Glucose (65-100) mg/dL POC Glucose (70-105) Lactic Acid 1.50 (0.7-2.0) mmol/L Calcium (8.4-10.2) mg/dL Total Bilirubin (0.1-1.2) mg/dL Direct Bilirubin (0-0.2) mg/dL Indirect Bilirubin mg/dL AST (5-40) units/L ALT (7-56) units/L Alkaline Phosphatase (35-129) units/L Ammonia (25-60) umol/L Total Creatine Kinase (30-135) units/L Total Protein (6.3-8.2) g/dL Albumin (3.9-5) g/dL Albumin/Globulin Ratio % Urine Color Yellow (Yellow) Urine Turbidity Clear (Clear) Urine pH 5.0 (5.0-7.0) Ur Specific [place] 1.018 (1.003-1.030) Urine Protein <15 mg/dl (Negative) mg/dL Urine Glucose (UA) Neg (Negative) mg/dL Urine Ketones Tr (Negative) mg/dL Urine Blood Neg (Negative) Urine Nitrite Neg (Negative) Urine Bilirubin Neg (Negative) Urine Urobilinogen 2.0 (<2.0) mg/dL Ur Leukocyte Esterase Neg (Negative) Urine WBC (Auto) < 1.0 (0.0-6.0) /HPF Urine RBC (Auto) < 1.0 (0.0-6.0) /HPF Urine Mucus Few /HPF Salicylates (2.8-20.0) mg/dL Urine Opiates Screen Presumptive negative Urine Methadone Screen Presumptive negative Acetaminophen (10.0-30.0) ug/mL Ur Barbiturates Screen Presumptive negative Ur Phencyclidine Scrn Presumptive negative Ur Amphetamines Screen Presumptive negative U Benzodiazepines Scrn Presumptive negative Urine Cocaine Screen Presumptive negative U Marijuana (THC) Screen Presumptive negative Drugs of Abuse Note Disclamer 03/16/19 03/16/19 Range/Units 21:34 23:36 WBC (4.5-11.0) K/mm3 RBC (3.65-5.03) M/mm3 Hgb (10.1-14.3) gm/dl Hct (30.3-42.9) % MCV (79-97) fl MCH (28-32) pg MCHC (30-34) % RDW (13.2-15.2) % Plt Count (140-440) K/mm3 Lymph % (Auto) (13.4-35.0) % Walker % (Auto) (0.0-7.3) % Eos % (Auto) (0.0-4.3) % Baso % (Auto) (0.0-1.8) % Lymph # (1.2-5.4) K/mm3 Walker # (0.0-0.8) K/mm3 Eos # (0.0-0.4) K/mm3 Baso # (0.0-0.1) K/mm3 Seg Neutrophils % (40.0-70.0) % Seg Neutrophils # (1.8-7.7) K/mm3 Sodium (137-145) mmol/L Potassium (3.6-5.0) mmol/L Chloride (98-107) mmol/L Carbon Dioxide (22-30) mmol/L Anion Gap mmol/L BUN (7-17) mg/dL Creatinine (0.7-1.2) mg/dL Estimated GFR ml/min BUN/Creatinine Ratio % Glucose (65-100) mg/dL POC Glucose (70-105) Lactic Acid (0.7-2.0) mmol/L Calcium (8.4-10.2) mg/dL Total Bilirubin (0.1-1.2) mg/dL Direct Bilirubin (0-0.2) mg/dL Indirect Bilirubin mg/dL AST (5-40) units/L ALT (7-56) units/L Alkaline Phosphatase (35-129) units/L Ammonia 49.0 (25-60) umol/L Total Creatine Kinase 90 (30-135) units/L Total Protein (6.3-8.2) g/dL Albumin (3.9-5) g/dL Albumin/Globulin Ratio % Urine Color (Yellow) Urine Turbidity (Clear) Urine pH (5.0-7.0) Ur Specific [place] (1.003-1.030) Urine Protein (Negative) mg/dL Urine Glucose (UA) (Negative) mg/dL Urine Ketones (Negative) mg/dL Urine Blood (Negative) Urine Nitrite (Negative) Urine Bilirubin (Negative) Urine Urobilinogen (<2.0) mg/dL Ur Leukocyte Esterase (Negative) Urine WBC (Auto) (0.0-6.0) /HPF Urine RBC (Auto) (0.0-6.0) /HPF Urine Mucus /HPF Salicylates (2.8-20.0) mg/dL Urine Opiates Screen Urine Methadone Screen Acetaminophen (10.0-30.0) ug/mL Ur Barbiturates Screen Ur Phencyclidine Scrn Ur Amphetamines Screen U Benzodiazepines Scrn Urine Cocaine Screen U Marijuana (THC) Screen Drugs of Abuse Note - EKG Data EKG shows normal: sinus rhythm, axis, intervals, ST-T waves Rate: normal Interpretation: other (RBBB) - Radiology Data Radiology results: report reviewed Negative head CT - Medical Decision Making Patient is a 73-year-old female that presents emergency room for altered mental status, nonverbal and no oral intake 3 days. Patient found to be dehydrated. Patient found to have hypernatremia. Patient head CT negative. Patient also found to have an elevated white count. Patient will be admitted to the hospitalist service. - Differential Diagnosis AMS, dehydration. Electrolyte imbalance. Critical Care Time: Yes Critical care attestation.: If time is entered above; I have spent that time in minutes in the direct care of this critically ill patient, excluding procedure time. Critical Care Time: 35 minutes ED Disposition Clinical Impression: Hypernatremia, Dehydration, Essential hypertension, Nonverbal, Acute metabolic encephalopathy Altered mental status Qualifiers: Altered mental status type: unspecified Qualified Code(s): R41.82 - Altered mental status, unspecified Dementia Qualifiers: Dementia type: unspecified type Dementia behavioral disturbance: without b ehavioral disturbance Qualified Code(s): F03.90 - Unspecified dementia without behavioral disturbance Elevated white blood cell count Qualifiers: Leukocytosis type: unspecified Qualified Code(s): D72.829 - Elevated white blood cell count, unspecified Disposition: 09 OP ADMIT IP TO THIS HOSP Is pt being admited?: Yes Does the pt Need Aspirin: No Condition: Critical Time of Disposition: 23:25
[2019-03-16 21:32] LABS: Basophils # (Auto) 0.1 K/mm3 (0.0-0.1); Basophils % (Auto) 0.9 % (0.0-1.8); Eosinophils % (Auto) 0.2 % (0.0-4.3); Hematocrit 34.1 % (30.3-42.9); Hemoglobin 11.3 gm/dl (10.1-14.3); Lymphocytes # (Auto) 3.3 K/mm3 (1.2-5.4); Lymphocytes % (Auto) 26.3 % (13.4-35.0); Mean Corpuscular HGB Conc 33 % (30-34); Mean Corpuscular Volume 79 fl (79-97); Monocytes % (Auto) 8.1 % (0.0-7.3); Red Cell Distribution Width 14.8 % (13.2-15.2)
[2019-03-16 21:39] LABS: Platelet Count 405 K/mm3 (140-440)
[2019-03-16 21:46] LABS: BUN/Creatinine Ratio 30; Blood Urea Nitrogen 27 mg/dL (7-17); Calcium 9.9 mg/dL (8.4-10.2); Hemolysis Index 229
[2019-03-16 21:56] LABS: Bilirubin,Urine NEG (Negative); Blood,Urine NEG (Negative); Color,Urine Yellow (Yellow); Mucus,Urine FEW /HPF; Protein,Urine <15 mg/dL mg/dL (Negative); RBC,Urine < 1.0 /HPF (0.0-6.0); WBC,Urine < 1.0 /HPF (0.0-6.0)
[2019-03-16 21:57] LABS: Alanine Aminotransferase 25 units/L (7-56); Albumin 3.8 g/dL (3.9-5)
[2019-03-16 22:05] LABS: Amphetamine Screen,Urine PRESUMPTIVE NEGATIVE; Benzodiazepines Screen,Urine PRESUMPTIVE NEGATIVE; Cannabinoid Screen,Urine PRESUMPTIVE NEGATIVE; Cocaine Screen,Urine PRESUMPTIVE NEGATIVE; Methadone Screen,Urine PRESUMPTIVE NEGATIVE; Opiate Screen,Urine PRESUMPTIVE NEGATIVE
[2019-03-16 22:14] LABS: Bilirubin,Direct < 0.2 mg/dL (0-0.2)
[2019-03-16] MEDS ORDERED: NACL 0.9% 1000 ML 1,000 ML IV ONE (22:25)
--- NOTE | 2019-03-16 23:13 | Cat Scan Report ---
PROCEDURE: CT HEAD/BRAIN WO CON TECHNIQUE: Computerized tomography of the head was performed without contrast material. CT DOSE LENGTH PRODUCT: 1047.6 mGycm HISTORY: ams March 06, 2019 COMPARISONS: None . FINDINGS: Skull and scalp: Normal . Paranasal sinuses: Normal . Ventricles and subarachnoid spaces: Normal . Cerebrum: No evidence of hemorrhage, acute infarction or mass. Minimal atrophy is noted.. Cerebellum and brainstem: No evidence of hemorrhage, acute infarction or mass . Vasculature: Normal . Other: None . ASPECTS: 10 IMPRESSION: There is no evidence of an acute intracranial process. Minimal atrophy. . This document is electronically signed by Viviane Guevara DO., March 16 2019 11:12:04 PM ET
[2019-03-16] MEDS ORDERED: TYLENOL PO PRN (23:48)
[2019-03-16] MEDS ORDERED: SODIUM CHLORIDE FLUSH SYRINGE 10 ML IV PRN (23:48)
[2019-03-16] MEDS ORDERED: ZOFRAN IV PRN (23:48)
[2019-03-17] MEDS ORDERED: D50W (25GM) Syringe IV PRN
--- NOTE | 2019-03-17 00:45 | XRay Report ---
PROCEDURE: XR CHEST 1V AP TECHNIQUE: Chest radiograph single view. HISTORY: suspicion of pneumonia COMPARISONS: March 06, 2019 . FINDINGS: Heart: Normal. Mediastinum/Vessels: Normal. Lungs/Pleural space: Normal. Bony thorax: No acute osseous abnormality. Life support devices: None. IMPRESSION: No acute cardiopulmonary abnormality. This document is electronically signed by Viviane Guevara DO., March 17 2019 12:43:21 AM ET
--- NOTE | 2019-03-17 03:17 | History and Physical Report ---
<JEANNINE CRUZ - Last Filed: 03/17/19 03:44> History of Present Illness Date of examination: 03/16/19 Date of admission: 03/16/19 23:48 Chief complaint: Altered mental status History of present illness: 73-year-old -[place] female with history of diabetes, hypertension, dementia, subdural hematoma, hypothyroidism, bipolar disorder presents to [facility] ED via EMS with complaints of altered mental status. Of note, pt was previously admitted to [facility] on 03/03 with similar complaints. She treated, discharge to [place] and placed on 1013. Pt is unable to provide history. At baseline pt is verbal but confused. History is taken by pt's caregiver who is present at bedside. Pt has become nonverbal and hasn't had anything to eat or drink for the past 3 days. She was evaluated by [place]'s house physician and found to be dehydrated with altered mentation. She was referred to [facility] for further evaluation and treatment. Past History Past Medical History: diabetes, hypertension, other (dementia, neuropathy, gout, bipolar disorder) Past Surgical History: No surgical history Social history: other (resident of [place] [id number]) Family history: no significant family history Medications and Allergies Allergies Allergy/AdvReac Type Severity Reaction Status Date / Time No Known Allergies Allergy Verified 07/16/18 15:02 Home Medications Medication Instructions Recorded Confirmed Last Taken Type Aspirin [Aspirin BABY CHEW TAB] 81 mg PO DAILY 07/26/17 03/17/19 Unknown History AtorvaSTATin [Lipitor] 10 mg PO DAILY 07/26/17 03/17/19 Unknown History Divalproex ER [Depakote ER] 250 mg PO BID 07/26/17 03/17/19 Unknown History Donepezil [Aricept] 5 mg PO BID 07/26/17 03/17/19 Unknown History Enalapril Maleate [Vasotec] 10 mg PO BID 07/26/17 03/17/19 Unknown History Gabapentin [Neurontin] 300 mg PO BID 07/26/17 03/17/19 Unknown History Levothyroxine [Synthroid] 150 mcg PO DAILY 07/26/17 03/17/19 Unknown History Memantine [Namenda] 5 mg PO DAILY 07/26/17 03/17/19 Unknown History Metoprolol Xl [Metoprolol 50 mg PO DAILY 07/26/17 03/17/19 Unknown History SUCCINATE ER TAB] metFORMIN [Glucophage] 500 mg PO BID 07/26/17 03/17/19 Unknown History clonazePAM [KlonoPIN] 0.25 mg PO BID tablet 03/10/19 03/17/[address] 500 mg PO BID 03/17/19 03/17/19 Unknown History Lisinopril [Zestril TAB] 10 mg PO DAILY 03/17/19 03/17/19 Unknown History cloZAPine (NF) [Clozapine (Nf)] 25 mg PO BID 03/17/19 03/17/19 Unknown History Active Meds: Active Medications Acetaminophen (Tylenol) 650 mg PO Q4H PRN PRN Reason: Pain MILD(1-3)/Fever >100.5/MCNEILL Dextrose (D50w (25gm) Syringe) 50 ml IV PRN PRN PRN Reason: Hypoglycemia Docusate Sodium (Colace) 100 mg PO BID GIL Enoxaparin Sodium (Lovenox) 40 mg SUB-Q QDAY GIL Dextrose (D5w) 1,000 mls @ 125 mls/hr IV DIRECT GIL Insulin Human Lispro (Humalog) 0 unit SUB-Q ACHS GIL; Protocol Ondansetron HCl (Zofran) 4 mg IV Q8H PRN PRN Reason: Nausea And Vomiting Sodium Chloride (Sodium Chloride Flush Syringe 10 Ml) 10 ml IV BID GIL Sodium Chloride (Sodium Chloride Flush Syringe 10 Ml) 10 ml IV PRN PRN PRN Reason: LINE FLUSH Review of Systems ROS unobtainable: due to mental status (unable to obtain) Exam - Physical Exam Narrative exam: Physical exam General appearance: Present: No acute distress, awake and alert, oriented to self. Otherwise mumbles incomprehensible words - EENT Eyes: Present: PERRL, EOM intact ENT: hearing intact, poor dentition - Neck Neck: Present: supple, normal ROM - Respiratory Respiratory effort: Non-labored Respiratory: Clear - Cardiovascular Heart rate: 77 (bpm) Rhythm: Right bundle branch block, SR Heart Sounds: Present: S1 & S2. Absent: rub, click - Extremities Extremities: no ischemia, pulses intact, - Peripheral Assessment Peripheral Pulses: within normal limits - Abdominal General gastrointestinal: soft, non-tender, normal bowel sounds - Integumentary Integumentary: Present: warm, dry - Musculoskeletal Musculoskeletal: Able move all extremities - Psychiatric Psychiatric: Calm, unable to assess - Constitutional Vitals: Temp Pulse Resp BP Pulse Ox 97.9 F 65 19 157/60 100 03/16/19 20:52 03/17/19 00:00 03/17/19 00:00 03/17/19 00:00 03/17/19 00:00 Results - Labs CBC & Chem 7: 03/16/19 21:10 03/16/19 21:10 Labs: Laboratory Last Values WBC 12.7 K/mm3 (4.5-11.0) H 03/16/19 21:10 RBC 4.30 M/mm3 (3.65-5.03) 03/16/19 21:10 Hgb 11.3 gm/dl (10.1-14.3) 03/16/19 21:10 Hct 34.1 % (30.3-42.9) 03/16/19 21:10 MCV 79 fl (79-97) 03/16/19 21:10 MCH 26 pg (28-32) L 03/16/19 21:10 MCHC 33 % (30-34) 03/16/19 21:10 RDW 14.8 % (13.2-15.2) 03/16/19 21:10 Plt Count 405 K/mm3 (140-440) 03/16/19 21:10 Lymph % (Auto) 26.3 % (13.4-35.0) 03/16/19 21:10 [place] % (Auto) 8.1 % (0.0-7.3) H 03/16/19 21:10 Eos % (Auto) 0.2 % (0.0-4.3) 03/16/19 21:10 Baso % (Auto) 0.9 % (0.0-1.8) 03/16/19 21:10 Lymph # 3.3 K/mm3 (1.2-5.4) 03/16/19 21:10 [place] # 1.0 K/mm3 (0.0-0.8) H 03/16/19 21:10 Eos # 0.0 K/mm3 (0.0-0.4) 03/16/19 21:10 Baso # 0.1 K/mm3 (0.0-0.1) 03/16/19 21:10 Seg Neutrophils % 64.5 % (40.0-70.0) 03/16/19 21:10 Seg Neutrophils # 8.2 K/mm3 (1.8-7.7) H 03/16/19 21:10 Sodium 156 mmol/L (137-145) H 03/16/19 21:10 Potassium 4.5 mmol/L (3.6-5.0) 03/16/19 21:10 Chloride 120.6 mmol/L (98-107) H 03/16/19 21:10 Carbon Dioxide 23 mmol/L (22-30) 03/16/19 21:10 17 mmol/L 03/16/19 21:10 BUN 27 mg/dL (7-17) H 03/16/19 21:10 0.9 mg/dL (0.7-1.2) 03/16/19 21:10 Estimated GFR > 60 ml/min 03/16/19 21:10 30 % 03/16/19 21:10 Glucose 113 mg/dL (65-100) H 03/16/19 21:10 POC Glucose 112 (70-105) H 03/16/19 20:51 6.5 % (4-6) H 03/17/19 00:26 Lactic Acid 1.50 mmol/L (0.7-2.0) 03/16/19 21:34 Calcium 9.9 mg/dL (8.4-10.2) 03/16/19 21:10 0.30 mg/dL (0.1-1.2) 03/16/19 21:30 < 0.2 mg/dL (0-0.2) 03/16/19 21:30 0.1 mg/dL 03/16/19 21:30 AST 36 units/L (5-40) 03/16/19 21:30 ALT 25 units/L (7-56) 03/16/19 21:30 120 units/L (35-129) 03/16/19 21:30 49.0 umol/L (25-60) 03/16/19 21:34 90 units/L (30-135) 03/16/19 23:36 6.8 g/dL (6.3-8.2) 03/16/19 21:30 3.8 g/dL (3.9-5) L 03/16/19 21:30 1.3 % 03/16/19 21:30 Yellow (Yellow) 03/16/19 21:31 Clear (Clear) 03/16/19 21:31 5.0 (5.0-7.0) 03/16/19 21:31 Ur Specific [place] 1.018 (1.003-1.030) 03/16/19 21:31 <15 mg/dl mg/dL (Negative) 03/16/19 21:31 Neg mg/dL (Negative) 03/16/19 21:31 Tr mg/dL (Negative) 03/16/19 21:31 Neg (Negative) 03/16/19 21:31 Neg (Negative) 03/16/19 21:31 Neg (Negative) 03/16/19 21:31 2.0 mg/dL (<2.0) 03/16/19 21:31 Ur Leukocyte Esterase Neg (Negative) 03/16/19 21:31 < 1.0 /HPF (0.0-6.0) 03/16/19 21:31 < 1.0 /HPF (0.0-6.0) 03/16/19 21:31 Few /HPF 03/16/19 21:31 Salicylates < 0.3 mg/dL (2.8-20.0) L 03/16/19 21:30 Presumptive negative 03/16/19 21:31 Presumptive negative 03/16/19 21:31 Acetaminophen < 5.0 ug/mL (10.0-30.0) L 03/16/19 21:30 Ur Barbiturates Screen Presumptive negative 03/16/19 21:31 Ur Phencyclidine Scrn Presumptive negative 03/16/19 21:31 Ur Amphetamines Screen Presumptive negative 03/16/19 21:31 U Benzodiazepines Scrn Presumptive negative 03/16/19 21:31 Presumptive negative 03/16/19 21:31 U Marijuana (THC) Screen Presumptive negative 03/16/19 21:31 Disclamer 03/16/19 21:31 - Imaging and Cardiology EKG: image reviewed (SR, 77bpm, RBBB) Chest x-ray: report reviewed (acute cardiopulmonary abnormalities), image rev iewed CT Scan - head: report reviewed (There is no evidence of an acute intracranial process. Minimal atrophy.), image reviewed Assessment and Plan Assessment and plan: 73-year-old -[place] female with history of diabetes, hypertension, dementia, subdural hematoma, hypothyroidism, bipolar disorder presents to [facility] ED via EMS with complaints of altered mental status. Of note, pt was previously admitted to [facility] on 03/03 with similar complaints. She treated, discharge to [place] and placed on 1013. On examination patient's mentation was found to be profoundly altered. She was able to say hello and then began mumbling inc omprehensible words. CT head did not reveal intracranial hemorrhage, mass, or any acute intracranial processes. She is to be hypernatremic with Na of 156. Will admit to medical floor for further evaluation. Acute metabolic encephalopathy Dehydration Hypernatremia- likely secondary to dehydration Leukocytosis DM2 HTN, Dementia Bipolar disorder History of subdural hematoma Plan: Continue supportive care Continuous remote telemetry monitoring Continue 1013 Start D5W Monitor electrolytes Monitor CBC Lactic acid 1.5, CXR unremarkable, afebrile no s/s of infection; WBC was elevated on previous admission; continue to monitor Monitor BP HgA1C 6.5 POC BG monitoring Resume Lisinioril 10mg daily and metoprolol 50mg daily IV hydralazine when necessary SSIcoverage, resume home Metformin 500mg BID ASA 81mg, Lipitor 10mg Resume home Synthroid 150mcg daily Psych consult pending DVT PPX on Lovenox This patient was seem in conjunction with Dr. Conway. Advance Directives: No VTE prophylaxis?: Chemical Plan of care discussed with patient/family: Yes <TOMMIE CONWAY - Last Filed: 03/18/19 22:54> History of Present Illness Date of admission: 03/16/19 23:48 Medications and Allergies Active Meds: Active Medications Acetaminophen (Tylenol) 650 mg PO Q4H PRN PRN Reason: Pain MILD(1-3)/Fever >100.5/MCNEILL Aspirin (Baby Aspirin) 81 mg PO DAILY GIL Atorvastatin Calcium (Lipitor) 10 mg PO DAILY GIL Dextrose (D50w (25gm) Syringe) 50 ml IV PRN PRN PRN Reason: Hypoglycemia Divalproex Sodium (Depakote Er) 250 mg PO BID GIL Docusate Sodium (Colace) 100 mg PO BID GIL Donepezil HCl (Aricept) 5 mg PO BID GIL Enoxaparin Sodium (Lovenox) 40 mg SUB-Q QDAY [facility] Gabapentin (Neurontin) 300 mg PO BID [facility] Dextrose (D5w) 1,000 mls @ 125 mls/hr IV DIRECT GIL Insulin Human Lispro (Humalog) 0 unit SUB-Q ACHS GIL; Protocol Levothyroxine Sodium (Synthroid) 150 mcg PO DAILY@0600 [facility] Lisinopril (Zestril) 10 mg PO DAILY [facility] Metoprolol Succinate (Toprol Xl) 50 mg PO DAILY [facility] Miscellaneous Medication (Clozapine (Nf)) 25 mg PO BID [facility] Ondansetron HCl (Zofran) 4 mg IV Q8H PRN PRN Reason: Nausea And Vomiting Sodium Chloride (Sodium Chloride Flush Syringe 10 Ml) 10 ml IV BID [facility] Sodium Chloride (Sodium Chloride Flush Syringe 10 Ml) 10 ml IV PRN PRN PRN Reason: LINE FLUSH Exam - Constitutional Vitals: Temp Pulse Resp BP Pulse Ox 97.9 F 68 15 157/60 99 03/16/19 20:52 03/17/19 00:51 03/17/19 00:51 03/17/19 00:51 03/17/19 00:51 Results - Labs CBC & Chem 7: 03/17/19 05:52 03/18/19 05:38 Labs: Laboratory Last Values WBC 12.7 K/mm3 (4.5-11.0) H 03/16/19 21:10 RBC 4.30 M/mm3 (3.65-5.03) 03/16/19 21:10 Hgb 11.3 gm/dl (10.1-14.3) 03/16/19 21:10 Hct 34.1 % (30.3-42.9) 03/16/19 21:10 MCV 79 fl (79-97) 03/16/19 21:10 MCH 26 pg (28-32) L 03/16/19 21:10 MCHC 33 % (30-34) 03/16/19 21:10 RDW 14.8 % (13.2-15.2) 03/16/19 21:10 Plt Count 405 K/mm3 (140-440) 03/16/19 21:10 Lymph % (Auto) 26.3 % (13.4-35.0) 03/16/19 21:10 [place] % (Auto) 8.1 % (0.0-7.3) H 03/16/19 21:10 Eos % (Auto) 0.2 % (0.0-4.3) 03/16/19 21:10 Baso % (Auto) 0.9 % (0.0-1.8) 03/16/19 21:10 Lymph # 3.3 K/mm3 (1.2-5.4) 03/16/19 21:10 [place] # 1.0 K/mm3 (0.0-0.8) H 03/16/19 21:10 Eos # 0.0 K/mm3 (0.0-0.4) 03/16/19 21:10 Baso # 0.1 K/mm3 (0.0-0.1) 03/16/19 21:10 Seg Neutrophils % 64.5 % (40.0-70.0) 03/16/19 21:10 Seg Neutrophils # 8.2 K/mm3 (1.8-7.7) H 03/16/19 21:10 Sodium 156 mmol/L (137-145) H 03/16/19 21:10 Potassium 4.5 mmol/L (3.6-5.0) 03/16/19 21:10 Chloride 120.6 mmol/L (98-107) H 03/16/19 21:10 Carbon Dioxide 23 mmol/L (22-30) 03/16/19 21:10 17 mmol/L 03/16/19 21:10 BUN 27 mg/dL (7-17) H 03/16/19 21:10 0.9 mg/dL (0.7-1.2) 03/16/19 21:10 Estimated GFR > 60 ml/min 03/16/19 21:10 30 % 03/16/19 21:10 Glucose 113 mg/dL (65-100) H 03/16/19 21:10 POC Glucose 112 (70-105) H 03/16/19 20:51 6.5 % (4-6) H 03/17/19 00:26 Lactic Acid 1.50 mmol/L (0.7-2.0) 03/16/19 21:34 Calcium 9.9 mg/dL (8.4-10.2) 03/16/19 21:10 0.30 mg/dL (0.1-1.2) 03/16/19 21:30 < 0.2 mg/dL (0-0.2) 03/16/19 21:30 0.1 mg/dL 03/16/19 21:30 AST 36 units/L (5-40) 03/16/19 21:30 ALT 25 units/L (7-56) 03/16/19 21:30 120 units/L (35-129) 03/16/19 21:30 49.0 umol/L (25-60) 03/16/19 21:34 90 units/L (30-135) 03/16/19 23:36 6.8 g/dL (6.3-8.2) 03/16/19 21:30 3.8 g/dL (3.9-5) L 03/16/19 21:30 1.3 % 03/16/19 21:30 Yellow (Yellow) 03/16/19 21:31 Clear (Clear) 03/16/19 21:31 5.0 (5.0-7.0) 03/16/19 21:31 Ur Specific [place] 1.018 (1.003-1.030) 03/16/19 21:31 <15 mg/dl mg/dL (Negative) 03/16/19 21:31 Neg mg/dL (Negative) 03/16/19 21:31 Tr mg/dL (Negative) 03/16/19 21:31 Neg (Negative) 03/16/19 21:31 Neg (Negative) 03/16/19 21:31 Neg (Negative) 03/16/19 21:31 2.0 mg/dL (<2.0) 03/16/19 21:31 Ur Leukocyte Esterase Neg (Negative) 03/16/19 21:31 < 1.0 /HPF (0.0-6.0) 03/16/19 21:31 < 1.0 /HPF (0.0-6.0) 03/16/19 21:31 Few /HPF 03/16/19 21:31 Salicylates < 0.3 mg/dL (2.8-20.0) L 03/16/19 21:30 Presumptive negative 03/16/19 21:31 Presumptive negative 03/16/19 21:31 Acetaminophen < 5.0 ug/mL (10.0-30.0) L 03/16/19 21:30 Ur Barbiturates Screen Presumptive negative 03/16/19 21:31 Ur Phencyclidine Scrn Presumptive negative 03/16/19 21:31 Ur Amphetamines Screen Presumptive negative 03/16/19 21:31 U Benzodiazepines Scrn Presumptive negative 03/16/19 21:31 Presumptive negative 03/16/19 21:31 U Marijuana (THC) Screen Presumptive negative 03/16/19 21:31 Disclamer 03/16/19 21:31 Assessment and Plan Assessment and plan: 73 year old woman with history of hypertension, dementia, hypothyroidism, dementia, bipolar, gallops, schizophrenia and bipolar into the emergency room for evaluation of altered mental status. She has been very aggressive and displaying manic behavior at [place], decrease oral intake, subsequently [id number]. Patient with dehydration, hypernatremia. Agree with IV fluids, monitor sodium level. Hold metformin for now as the patient is not eating. Stress induce leukocytosis, continue to monitor. Patient seen and discussed with [employer].
[2019-03-17 06:21] LABS: Basophils # (Auto) 0.1 K/mm3 (0.0-0.1); Basophils % (Auto) 0.7 % (0.0-1.8); Eosinophils % (Auto) 0.1 % (0.0-4.3); Hematocrit 33.7 % (30.3-42.9); Hemoglobin 10.7 gm/dl (10.1-14.3); Lymphocytes % (Auto) 27.7 % (13.4-35.0); Mean Corpuscular HGB Conc 32 % (30-34); Mean Corpuscular Volume 80 fl (79-97); Monocytes # (Auto) 0.8 K/mm3 (0.0-0.8); Monocytes % (Auto) 7.6 % (0.0-7.3); Platelet Count 375 K/mm3 (140-440); Red Blood Count 4.23 M/mm3 (3.65-5.03); Red Cell Distribution Width 14.9 % (13.2-15.2)
[2019-03-17 06:43] LABS: BUN/Creatinine Ratio 27; Blood Urea Nitrogen 24 mg/dL (7-17); Calcium 9.5 mg/dL (8.4-10.2); Hemolysis Index 9
[2019-03-17] MEDS: HumaLOG SUB-Q SCH ×3 (07:27→16:58)
[2019-03-17] MEDS: SYNTHROID PO SCH (07:34)
[2019-03-17] MEDS ORDERED: GLUCOPHAGE PO SCH (08:00)
[2019-03-17] MEDS: LOVENOX SUB-Q SCH (09:18)
[2019-03-17] MEDS: BABY ASPIRIN PO SCH (09:19)
[2019-03-17] MEDS: TOPROL XL PO SCH (09:19)
[2019-03-17] MEDS: ARICEPT PO SCH (09:22)
[2019-03-17] MEDS: SODIUM CHLORIDE FLUSH SYRINGE 10 ML IV SCH (09:22)
[2019-03-17] MEDS: ZESTRIL PO SCH (09:22)
[2019-03-17] MEDS: NEURONTIN PO SCH (09:23)
[2019-03-17] MEDS: COLACE PO SCH (09:25)
[2019-03-17] MEDS: D5W 1,000 ML IV SCH ×2 (09:32→17:56)
--- NOTE | 2019-03-17 09:35 | Progress Note ---
Assessment and Plan Assessment and plan: --Acute metabolic encephalopathy; multifactorial Continue supportive care --Dehydration; IV fluids, encourage plenty of oral fluids --Hypernatremia- likely secondary to dehydration, encourage plenty of oral fluids D5W, monitor electrolytes --Leukocytosis; resolved, closely monitor --DM2; Accu-Chek sliding scale coverage and ADA diet Insulin if needed --HTN,; moderate control, continue current antihypertensives and when necessary medications --Dementia; supportive care. Psych evaluation --Bipolar disorder; psych evaluation, continue current management --History of subdural hematoma; stable --DVT prophylaxis; SCDs Follow psych evaluation and recommendations monitor closely and adjust the management as needed Possible discharge in 1-2 days if stable History Interval history: Patient seen and examined medical records reviewed No new events reported by the nursing Vital signs noted Hospitalist Physical - Constitutional Vitals: Temp Pulse Resp BP Pulse Ox 98.5 F 81 20 140/107 96 03/17/19 07:34 03/17/19 09:19 03/17/19 07:34 03/17/19 09:19 03/17/19 07:34 General appearance: Present: no acute distress, well-nourished - EENT Eyes: Present: PERRL, EOM intact - Neck Neck: Present: supple, normal ROM - Respiratory Respiratory effort: normal Respiratory: bilateral: diminished, negative: rales, rhonchi, wheezing - Cardiovascular Rhythm: regular Heart Sounds: Present: S1 & S2 - Extremities Extremities: no ischemia, No edema - Abdominal General gastrointestinal: soft, non-tender, non-distended, normal bowel sounds - Integumentary Integumentary: Present: clear, warm - Psychiatric Psychiatric: agitated, other (confused at times) - Neurologic Neurologic: moves all extremities Results - Labs CBC & Chem 7: 03/17/19 05:52 03/17/19 05:52 Labs: Laboratory Last Values WBC 10.9 K/mm3 (4.5-11.0) 03/17/19 05:52 RBC 4.23 M/mm3 (3.65-5.03) 03/17/19 05:52 Hgb 10.7 gm/dl (10.1-14.3) 03/17/19 05:52 Hct 33.7 % (30.3-42.9) 03/17/19 05:52 MCV 80 fl (79-97) 03/17/19 05:52 MCH 25 pg (28-32) L 03/17/19 05:52 MCHC 32 % (30-34) 03/17/19 05:52 RDW 14.9 % (13.2-15.2) 03/17/19 05:52 Plt Count 375 K/mm3 (140-440) 03/17/19 05:52 Lymph % (Auto) 27.7 % (13.4-35.0) 03/17/19 05:52 [place] % (Auto) 7.6 % (0.0-7.3) H 03/17/19 05:52 Eos % (Auto) 0.1 % (0.0-4.3) 03/17/19 05:52 Baso % (Auto) 0.7 % (0.0-1.8) 03/17/19 05:52 Lymph # 3.0 K/mm3 (1.2-5.4) 03/17/19 05:52 [place] # 0.8 K/mm3 (0.0-0.8) 03/17/19 05:52 Eos # 0.0 K/mm3 (0.0-0.4) 03/17/19 05:52 Baso # 0.1 K/mm3 (0.0-0.1) 03/17/19 05:52 Seg Neutrophils % 63.9 % (40.0-70.0) 03/17/19 05:52 Seg Neutrophils # 7.0 K/mm3 (1.8-7.7) 03/17/19 05:52 Sodium 158 mmol/L (137-145) H 03/17/19 05:52 Potassium 3.7 mmol/L (3.6-5.0) 03/17/19 05:52 Chloride 123.9 mmol/L (98-107) H 03/17/19 05:52 Carbon Dioxide 21 mmol/L (22-30) L 03/17/19 05:52 17 mmol/L 03/17/19 05:52 BUN 24 mg/dL (7-17) H 03/17/19 05:52 0.9 mg/dL (0.7-1.2) 03/17/19 05:52 Estimated GFR > 60 ml/min 03/17/19 05:52 27 % 06/06/19 05:52 Glucose 108 mg/dL (65-100) H 03/17/19 05:52 POC Glucose 108 (70-105) H 03/17/19 07:20 6.5 % (4-6) H 03/17/19 00:26 Lactic Acid 1.50 mmol/L (0.7-2.0) 03/16/19 21:34 Calcium 9.5 mg/dL (8.4-10.2) 03/17/19 05:52 0.30 mg/dL (0.1-1.2) 03/16/19 21:30 < 0.2 mg/dL (0-0.2) 03/16/19 21:30 0.1 mg/dL 03/16/19 21:30 AST 36 units/L (5-40) 03/16/19 21:30 ALT 25 units/L (7-56) 03/16/19 21:30 120 units/L (35-129) 03/16/19 21:30 49.0 umol/L (25-60) 03/16/19 21:34 90 units/L (30-135) 03/16/19 23:36 6.8 g/dL (6.3-8.2) 03/16/19 21:30 3.8 g/dL (3.9-5) L 03/16/19 21:30 1.3 % 03/16/19 21:30 Yellow (Yellow) 03/16/19 21:31 Clear (Clear) 03/16/19 21:31 5.0 (5.0-7.0) 03/16/19 21:31 Ur Specific [place] 1.018 (1.003-1.030) 03/16/19 21:31 <15 mg/dl mg/dL (Negative) 03/16/19 21:31 Neg mg/dL (Negative) 03/16/19 21:31 Tr mg/dL (Negative) 03/16/19 21:31 Neg (Negative) 03/16/19 21:31 Neg (Negative) 03/16/19 21:31 Neg (Negative) 03/16/19 21:31 2.0 mg/dL (<2.0) 03/16/19 21:31 Ur Leukocyte Esterase Neg (Negative) 03/16/19 21:31 < 1.0 /HPF (0.0-6.0) 03/16/19 21:31 < 1.0 /HPF (0.0-6.0) 03/16/19 21:31 Few /HPF 03/16/19 21:31 Salicylates < 0.3 mg/dL (2.8-20.0) L 03/16/19 21:30 Presumptive negative 03/16/19 21:31 Presumptive negative 03/16/19 21:31 Acetaminophen < 5.0 ug/mL (10.0-30.0) L 03/16/19 21:30 Ur Barbiturates Screen Presumptive negative 03/16/19 21:31 Ur Phencyclidine Scrn Presumptive negative 03/16/19 21:31 Ur Amphetamines Screen Presumptive negative 03/16/19 21:31 U Benzodiazepines Scrn Presumptive negative 03/16/19 21:31 Presumptive negative 03/16/19 21:31 U Marijuana (THC) Screen Presumptive negative 03/16/19 21:31 Disclamer 03/16/19 21:31 Active Medications - Current Medications Current Medications: Generic Name Dose Route Start Last Admin Trade Name Freq PRN Reason Stop Dose Admin Acetaminophen 650 mg 03/16/19 23:48 Tylenol PO Q4H PRN Pain MILD(1-3)/Fever >100.5/MCNEILL Aspirin 81 mg 03/17/19 10:00 03/17/19 09:19 Baby Aspirin PO 81 mg DAILY GIL Administration Atorvastatin Calcium 10 mg 03/17/19 10:00 03/17/19 09:18 Lipitor PO 10 mg DAILY GIL Administration Dextrose 50 ml 03/17/19 00:00 D50w (25gm) Syringe IV PRN PRN Hypoglycemia Divalproex Sodium 250 mg 03/17/19 10:00 03/17/19 09:25 Depakote Sprinkle PO 250 mg BID GIL Administration Docusate Sodium 100 mg 03/17/19 10:00 03/17/19 09:25 Colace PO 100 mg BID GIL Administration Donepezil HCl 5 mg 03/17/19 10:00 03/17/19 09:22 Aricept PO 5 mg BID GIL Administration Enoxaparin Sodium 40 mg 03/17/19 10:00 03/17/19 09:18 Lovenox SUB-Q 40 mg QDAY G[facility] Administration Gabapentin 300 mg 03/17/19 10:00 03/17/19 09:23 Neurontin PO 300 mg BID GIL Administration Dextrose 1,000 mls @ 125 mls/hr 03/16/19 23:45 03/17/19 09:32 D5w IV 125 mls/hr DIRECT GIL Administration Insulin Human Lispro 0 unit 03/17/19 07:30 03/17/19 07:27 Humalog SUB-Q Not Given ACHS [facility] Protocol Levothyroxine Sodium 150 mcg 03/17/19 06:00 03/17/19 07:34 Synthroid PO 150 mcg DAILY@0600 [facility] Administration Lisinopril 10 mg 03/17/19 10:00 03/17/19 09:22 Zestril PO 10 mg DAILY [facility] Administration Metoprolol Succinate 50 mg 03/17/19 10:00 03/17/19 09:19 Toprol Xl PO 50 mg DAILY [facility] Administration Miscellaneous Medication 25 mg 03/17/19 10:00 Clozapine (Nf) PO BID [facility] Ondansetron HCl 4 mg 03/16/19 23:48 Zofran IV Q8H PRN Nausea And Vomiting Sodium Chloride 10 ml 03/17/19 10:00 03/17/19 09:22 Sodium Chloride Flush Syringe 10 Ml IV 10 ml BID GIL Administration Sodium Chloride 10 ml 03/16/19 23:48 Sodium Chloride Flush Syringe 10 Ml IV PRN PRN LINE FLUSH
[2019-03-17] MEDS ORDERED: COLACE PO SCH (10:00)
[2019-03-17] MEDS ORDERED: NEURONTIN PO SCH (10:00)
[2019-03-17] MEDS ORDERED: CLOZAPINE 25 MG PO SCH (10:00)
--- NOTE | 2019-03-17 12:12 | Consultation ---
History of Present Illness - Reason for Consult Consult date: 03/17/19 Reason for consult: Mental Health Evaluation Requesting physician: CARTER NOONAN III - Chief Complaint Chief complaint: "The patient is rambling" - History of Present Psychiatric Illness 73 y.o. AA female who presented to the ER for AMS. This patient is known to me. Today the patient is calm, but disorganized during the assessment. She rambles about irrelevant topics throughout the interview. Per the staff, the patient did take her PO meds. The patient is a poor historian. Medications and Allergies Allergies Allergy/AdvReac Type Severity Reaction Status Date / Time No Known Allergies Allergy Verified 07/16/18 15:02 Home Medications Medication Instructions Recorded Confirmed Last Taken Type Aspirin [Aspirin BABY CHEW TAB] 81 mg PO DAILY 07/26/17 03/17/19 Unknown History AtorvaSTATin [Lipitor] 10 mg PO DAILY 07/26/17 03/17/19 Unknown History Divalproex ER [Depakote ER] 250 mg PO BID 07/26/17 03/17/19 Unknown History Donepezil [Aricept] 5 mg PO BID 07/26/17 03/17/19 Unknown History Enalapril Maleate [Vasotec] 10 mg PO BID 07/26/17 03/17/19 Unknown History Gabapentin [Neurontin] 300 mg PO BID 07/26/17 03/17/19 Unknown History Levothyroxine [Synthroid] 150 mcg PO DAILY 07/26/17 03/17/19 Unknown History Memantine [Namenda] 5 mg PO DAILY 07/26/17 03/17/19 Unknown History Metoprolol Xl [Metoprolol 50 mg PO DAILY 07/26/17 03/17/19 Unknown History SUCCINATE ER TAB] metFORMIN [Glucophage] 500 mg PO BID 07/26/17 03/17/19 Unknown History clonazePAM [KlonoPIN] 0.25 mg PO BID tablet 03/10/19 03/17/[address] 500 mg PO BID 03/17/19 03/17/19 Unknown History Lisinopril [Zestril TAB] 10 mg PO DAILY 03/17/19 03/17/19 Unknown History cloZAPine (NF) [Clozapine (Nf)] 25 mg PO BID 03/17/19 03/17/19 Unknown History Active Meds: Active Medications Acetaminophen (Tylenol) 650 mg PO Q4H PRN PRN Reason: Pain MILD(1-3)/Fever >100.5/MCNEILL Aspirin (Baby Aspirin) 81 mg PO DAILY [facility] Last Admin: 03/17/19 09:19 Dose: 81 mg Documented by: Atorvastatin Calcium (Lipitor) 10 mg PO DAILY [facility] Last Admin: 03/17/19 09:18 Dose: 10 mg Documented by: Clonazepam (Klonopin) 0.25 mg PO BID [facility] Last Admin: 03/17/19 10:45 Dose: 0.25 mg Documented by: Dextrose (D50w (25gm) Syringe) 50 ml IV PRN PRN PRN Reason: Hypoglycemia Divalproex Sodium (Depakote Sprinkle) 250 mg PO BID [facility] Last Admin: 03/17/19 09:25 Dose: 250 mg Documented by: Docusate Sodium (Colace) 100 mg PO BID [facility] Last Admin: 03/17/19 09:25 Dose: 100 mg Documented by: Donepezil HCl (Aricept) 5 mg PO BID [facility] Last Admin: 03/17/19 09:22 Dose: 5 mg Documented by: Enoxaparin Sodium (Lovenox) 40 mg SUB-Q QDAY [facility] Last Admin: 03/17/19 09:18 Dose: 40 mg Documented by: Gabapentin (Neurontin) 300 mg PO BID [facility] Last Admin: 03/17/19 09:23 Dose: 300 mg Documented by: Dextrose (D5w) 1,000 mls @ 125 mls/hr IV DIRECT [facility] Last Admin: 03/17/19 09:32 Dose: 125 mls/hr Documented by: Insulin Human Lispro (Humalog) 0 unit SUB-Q ACHS [facility]; Protocol Last Admin: 03/17/19 11:39 Dose: 2 unit Documented by: Levothyroxine Sodium (Synthroid) 150 mcg PO DAILY@0600 [facility] Last Admin: 03/17/19 07:34 Dose: 150 mcg Documented by: Lisinopril (Zestril) 10 mg PO DAILY [facility] Last Admin: 03/17/19 09:22 Dose: 10 mg Documented by: Metoprolol Succinate (Toprol Xl) 50 mg PO DAILY [facility] Last Admin: 03/17/19 09:19 Dose: 50 mg Documented by: Ondansetron HCl (Zofran) 4 mg IV Q8H PRN PRN Reason: Nausea And Vomiting Sodium Chloride (Sodium Chloride Flush Syringe 10 Ml) 10 ml IV BID [facility] Last Admin: 03/17/19 09:22 Dose: 10 ml Documented by: Sodium Chloride (Sodium Chloride Flush Syringe 10 Ml) 10 ml IV PRN PRN PRN Reason: LINE FLUSH Past psychiatric history - Past Medical History Past Medical History: other (Unable to obtain ) Past Surgical History: Other (Unable to obtain ) - past Psychiatric treatment and history psychiatric treatment history: Several inpatient psy settings. Unable to obtain a [facility] psy hx. - Social History Social history: other (Reside at [facility]) Mental Status Exam - Vital signs Last Vital Signs Temp 98.5 F 03/17/19 07:34 Pulse 52 L 03/17/19 10:00 Resp 20 03/17/19 07:34 BP 140/107 03/17/19 09:19 Pulse Ox 96 03/17/19 07:34 - Exam Narrative exam: Unable to complete the MSE because of the patient's condition. Results Result Diagrams: 03/17/19 05:52 03/17/19 05:52 Abnormal lab results 03/16/19 03/16/19 03/16/19 Range/Units 20:51 21:10 21:10 WBC 12.7 H (4.5-11.0) K/mm3 MCH 26 L (28-32) pg [place] % (Auto) 8.1 H (0.0-7.3) % [place] # 1.0 H (0.0-0.8) K/mm3 Seg Neutrophils # 8.2 H (1.8-7.7) K/mm3 Sodium 156 H (137-145) mmol/L Chloride 120.6 H (98-107) mmol/L Carbon Dioxide (22-30) mmol/L BUN 27 H (7-17) mg/dL Glucose 113 H (65-100) mg/dL POC Glucose 112 H (70-105) Hemoglobin A1c (4-6) % Albumin (3.9-5) g/dL Salicylates (2.8-20.0) mg/dL Acetaminophen (10.0-30.0) ug/mL Valproic Acid (50-100) ug/mL 03/16/19 03/16/19 03/16/19 Range/Units 21:30 21:30 21:30 WBC (4.5-11.0) K/mm3 MCH (28-32) pg [place] % (Auto) (0.0-7.3) % [place] # (0.0-0.8) K/mm3 Seg Neutrophils # (1.8-7.7) K/mm3 Sodium (137-145) mmol/L Chloride (98-107) mmol/L Carbon Dioxide (22-30) mmol/L BUN (7-17) mg/dL Glucose (65-100) mg/dL POC Glucose (70-105) Hemoglobin A1c (4-6) % Albumin 3.8 L (3.9-5) g/dL Salicylates < 0.3 L (2.8-20.0) mg/dL Acetaminophen < 5.0 L (10.0-30.0) ug/mL Valproic Acid (50-100) ug/mL 03/17/19 03/17/19 03/17/19 Range/Units 00:26 05:52 05:52 WBC (4.5-11.0) K/mm3 MCH 25 L (28-32) pg [place] % (Auto) 7.6 H (0.0-7.3) % [place] # (0.0-0.8) K/mm3 Seg Neutrophils # (1.8-7.7) K/mm3 Sodium 158 H (137-145) mmol/L Chloride 123.9 H (98-107) mmol/L Carbon Dioxide 21 L (22-30) mmol/L BUN 24 H (7-17) mg/dL Glucose 108 H (65-100) mg/dL POC Glucose (70-105) Hemoglobin A1c 6.5 H (4-6) % Albumin (3.9-5) g/dL Salicylates (2.8-20.0) mg/dL Acetaminophen (10.0-30.0) ug/mL Valproic Acid (50-100) ug/mL 03/17/19 03/17/19 03/17/19 Range/Units 07:20 11:03 11:36 WBC (4.5-11.0) K/mm3 MCH (28-32) pg [place] % (Auto) (0.0-7.3) % Imperial # (0.0-0.8) K/mm3 Seg Neutrophils # (1.8-7.7) K/mm3 Sodium (137-145) mmol/L Chloride (98-107) mmol/L Carbon Dioxide (22-30) mmol/L BUN (7-17) mg/dL Glucose (65-100) mg/dL POC Glucose 108 H 156 H (70-105) Hemoglobin A1c (4-6) % Albumin (3.9-5) g/dL Salicylates (2.8-20.0) mg/dL Acetaminophen (10.0-30.0) ug/mL Valproic Acid 32.8 L (50-100) ug/mL All other labs normal. Assessment and Plan Assessment and plan: Impression: Delirium. Hx of Schizophrenia/Dementia. Today the patient was calm, but disorganized during the assessment. DDx Unspecified Psychosis Medical: Acute Metabolic Encephalopathy, NA 158 Recommendation/Plan: Continue 1013, Aricept 5 mg PO BID for dementia, and Depakote Sprinles 250 mg PO BID for mood. The patient takes clozaril, but the medications isn't on formulary. Dispo: Proper dispo will be determined when the patient is medically clear. Will staff with Dr Nette Henry.
[2019-03-18] MEDS: ARICEPT PO SCH ×3 (00:34→23:48)
[2019-03-18] MEDS: COLACE PO SCH ×2 (00:34→09:23)
[2019-03-18 06:04] LABS: BUN/Creatinine Ratio 18; Blood Urea Nitrogen 18 mg/dL (7-17); Calcium 8.8 mg/dL (8.4-10.2); Hemolysis Index 55
[2019-03-18] MEDS: HumaLOG SUB-Q SCH ×4 (07:16→16:54)
--- NOTE | 2019-03-18 08:18 | Progress Note ---
Assessment and Plan Assessment and plan: --Hypernatremia-Mild improvement Na 153, likely secondary to dehydration, encourage plenty of oral fluids, D5W, monitor electrolytes --Acute metabolic encephalopathy; multifactorial Continue supportive care --Dehydration; IV fluids, encourage plenty of oral fluids --Leukocytosis; resolved, closely monitor --DM2; Accu-Chek sliding scale coverage and ADA diet Insulin if needed --Hypertension: uncontrolled: cont current anti hypertensives.PRN hydralazine --HTN,; moderate control, continue current antihypertensives and when necessary medications --Dementia; supportive care. Psych evaluation --Bipolar disorder; psych evaluation, continue current management --History of subdural hematoma; stable --DVT prophylaxis; SCDs Follow psych evaluation and recommendations monitor closely and adjust the management as needed Possible discharge in 1-2 days if stable History Interval history: Patient seen and examined medical records reviewed No new events reported by nursing staff Patient is confused and agitated, sodium levels trending down Safety sensitive at the bedside Vital signs noted Hospitalist Physical - Constitutional Vitals: Temp Pulse Resp BP Pulse Ox 97.9 F 78 20 171/88 98 03/18/19 07:42 03/18/19 07:42 03/18/19 07:42 03/18/19 07:42 03/18/19 07:42 General appearance: Present: no acute distress, well-nourished - EENT Eyes: Present: PERRL, EOM intact - Neck Neck: Present: supple, normal ROM - Respiratory Respiratory effort: normal Respiratory: bilateral: diminished, negative: rales, rhonchi, wheezing - Cardiovascular Rhythm: regular Heart Sounds: Present: S1 & S2 - Extremities Extremities: no ischemia, No edema - Abdominal General gastrointestinal: soft, non-tender, non-distended, normal bowel sounds - Integumentary Integumentary: Present: clear, warm - Psychiatric Psychiatric: agitated, other (confused at times) - Neurologic Neurologic: moves all extremities Results - Labs CBC & Chem 7: 03/17/19 05:52 03/19/19 05:10 Labs: Laboratory Last Values WBC 10.9 K/mm3 (4.5-11.0) 03/17/19 05:52 RBC 4.23 M/mm3 (3.65-5.03) 03/17/19 05:52 Hgb 10.7 gm/dl (10.1-14.3) 03/17/19 05:52 Hct 33.7 % (30.3-42.9) 03/17/19 05:52 MCV 80 fl (79-97) 03/17/19 05:52 MCH 25 pg (28-32) L 03/17/19 05:52 MCHC 32 % (30-34) 03/17/19 05:52 RDW 14.9 % (13.2-15.2) 03/17/19 05:52 Plt Count 375 K/mm3 (140-440) 03/17/19 05:52 Lymph % (Auto) 27.7 % (13.4-35.0) 03/17/19 05:52 [place] % (Auto) 7.6 % (0.0-7.3) H 03/17/19 05:52 Eos % (Auto) 0.1 % (0.0-4.3) 03/17/19 05:52 Baso % (Auto) 0.7 % (0.0-1.8) 03/17/19 05:52 Lymph # 3.0 K/mm3 (1.2-5.4) 03/17/19 05:52 [place] # 0.8 K/mm3 (0.0-0.8) 03/17/19 05:52 Eos # 0.0 K/mm3 (0.0-0.4) 03/17/19 05:52 Baso # 0.1 K/mm3 (0.0-0.1) 03/17/19 05:52 Seg Neutrophils % 63.9 % (40.0-70.0) 03/17/19 05:52 Seg Neutrophils # 7.0 K/mm3 (1.8-7.7) 03/17/19 05:52 Sodium 153 mmol/L (137-145) H 03/18/19 05:38 Potassium 3.7 mmol/L (3.6-5.0) 03/18/19 05:38 Chloride 118.4 mmol/L (98-107) H 03/18/19 05:38 Carbon Dioxide 22 mmol/L (22-30) 03/18/19 05:38 16 mmol/L 03/18/19 05:38 BUN 18 mg/dL (7-17) H 03/18/19 05:38 1.0 mg/dL (0.7-1.2) 03/18/19 05:38 Estimated GFR > 60 ml/min 03/18/19 05:38 18 % 03/18/19 05:38 Glucose 109 mg/dL (65-100) H 03/18/19 05:38 POC Glucose 156 (70-105) H 03/17/19 11:36 6.5 % (4-6) H 03/17/19 00:26 Lactic Acid 1.50 mmol/L (0.7-2.0) 03/16/19 21:34 Calcium 8.8 mg/dL (8.4-10.2) 03/18/19 05:38 Magnesium 1.90 mg/dL (1.7-2.3) 03/18/19 05:38 0.30 mg/dL (0.1-1.2) 03/16/19 21:30 < 0.2 mg/dL (0-0.2) 03/16/19 21:30 0.1 mg/dL 03/16/19 21:30 AST 36 units/L (5-40) 03/16/19 21:30 ALT 25 units/L (7-56) 03/16/19 21:30 120 units/L (35-129) 03/16/19 21:30 49.0 umol/L (25-60) 03/16/19 21:34 90 units/L (30-135) 03/16/19 23:36 6.8 g/dL (6.3-8.2) 03/16/19 21:30 3.8 g/dL (3.9-5) L 03/16/19 21:30 1.3 % 03/16/19 21:30 Amylase 53 units/L (27-131) 03/17/19 11:03 60 units/L (13-60) 03/17/19 11:03 Yellow (Yellow) 03/16/19 21:31 Clear (Clear) 03/16/19 21:31 5.0 (5.0-7.0) 03/16/19 21:31 Ur Specific [place] 1.018 (1.003-1.030) 03/16/19 21:31 <15 mg/dl mg/dL (Negative) 03/16/19 21:31 Neg mg/dL (Negative) 03/16/19 21:31 Tr mg/dL (Negative) 03/16/19 21:31 Neg (Negative) 03/16/19 21:31 Neg (Negative) 03/16/19 21:31 Neg (Negative) 03/16/19 21:31 2.0 mg/dL (<2.0) 03/16/19 21:31 Ur Leukocyte Esterase Neg (Negative) 03/16/19 21:31 < 1.0 /HPF (0.0-6.0) 03/16/19 21:31 < 1.0 /HPF (0.0-6.0) 03/16/19 21:31 Few /HPF 03/16/19 21:31 Salicylates < 0.3 mg/dL (2.8-20.0) L 03/16/19 21:30 Presumptive negative 03/16/19 21:31 Presumptive negative 03/16/19 21:31 Acetaminophen < 5.0 ug/mL (10.0-30.0) L 03/16/19 21:30 Ur Barbiturates Screen Presumptive negative 03/16/19 21:31 Valproic Acid 32.8 ug/mL (50-100) L 03/17/19 11:03 Ur Phencyclidine Scrn Presumptive negative 03/16/19 21:31 Ur Amphetamines Screen Presumptive negative 03/16/19 21:31 U Benzodiazepines Scrn Presumptive negative 03/16/19 21:31 Presumptive negative 03/16/19 21:31 U Marijuana (THC) Screen Presumptive negative 03/16/19 21:31 Disclamer 03/16/19 21:31 Active Medications - Current Medications Current Medications: Generic Name Dose Route Start Last Admin Trade Name Freq PRN Reason Stop Dose Admin Acetaminophen 650 mg 03/16/19 23:48 Tylenol PO Q4H PRN Pain MILD(1-3)/Fever >100.5/MCNEILL Aspirin 81 mg 03/17/19 10:00 03/17/19 09:19 Baby Aspirin PO 81 mg DAILY [facility] Administration Atorvastatin Calcium 10 mg 03/17/19 10:00 03/17/19 09:18 Lipitor PO 10 mg DAILY [facility] Administration Clonazepam 0.25 mg 03/17/19 10:00 03/17/19 22:35 Klonopin PO 0.25 mg BID [facility] Administration Dextrose 50 ml 03/17/19 00:00 D50w (25gm) Syringe IV PRN PRN Hypoglycemia Divalproex Sodium 250 mg 03/17/19 10:00 03/17/19 22:00 Depakote Sprinkle PO 250 mg BID [facility] Administration Docusate Sodium 100 mg 03/17/19 10:00 03/18/19 00:34 Colace PO 100 mg BID [facility] Administration Donepezil HCl 5 mg 03/17/19 10:00 03/18/19 00:34 Aricept PO 5 mg BID [facility] Administration Enoxaparin Sodium 40 mg 03/17/19 10:00 03/17/19 09:18 Lovenox SUB-Q 40 mg QDAY [facility] Administration Gabapentin 300 mg 03/17/19 10:00 03/17/19 09:23 Neurontin PO 300 mg BID [facility] Administration Hydralazine HCl 10 mg 03/18/19 08:11 Apresoline IV Q4HR PRN Hypertension Dextrose 1,000 mls @ 125 mls/hr 03/16/19 23:45 03/17/19 17:56 D5w IV 125 mls/hr DIRECT [facility] Administration Insulin Human Lispro 0 unit 03/17/19 07:30 03/18/19 07:16 Humalog SUB-Q Not Given ACHS [facility] Protocol Levothyroxine Sodium 150 mcg 03/17/19 06:00 03/17/19 07:34 Synthroid PO 150 mcg DAILY@0600 [facility] Administration Lisinopril 10 mg 03/17/19 10:00 03/17/19 09:22 Zestril PO 10 mg DAILY [facility] Administration Metoprolol Succinate 50 mg 03/17/19 10:00 03/17/19 09:19 Toprol Xl PO 50 mg DAILY [facility] Administration Ondansetron HCl 4 mg 03/16/19 23:48 Zofran IV Q8H PRN Nausea And Vomiting Sodium Chloride 10 ml 03/17/19 10:00 03/17/19 09:22 Sodium Chloride Flush Syringe 10 Ml IV 10 ml BID [facility] Administration Sodium Chloride 10 ml 03/16/19 23:48 Sodium Chloride Flush Syringe 10 Ml IV PRN PRN LINE FLUSH Nutrition/Malnutrition Assess - Dietary Evaluation Nutrition/Malnutrition Findings: Nutrition Notes Start: 03/17/19 16:07 Freq: Status: Active Protocol: Document 03/17/19 16:08 RM (Rec: 03/17/19 16:16 RM [id number]) Nutrition Notes Need for Assessment generated from: MD Order Initial or Follow up Assessment Current Diagnosis Diabetes,Hypertension Other Pertinent Diagnosis Dementia, Hypothyroidism, Bipolar disorder, Acute metabolic encephalopathy Current Diet Pureed Labs/Tests Reviewed Pertinent Medications Reviewed Height 5 ft 7 in Weight 68.3 kg [place] Body Weight (kg) 61.36 BMI 23.6 Subjective/Other Information Consulted for malnutrition. Pt confused at time of visit. No family present. No temporal or orbital wasting. Nurse stated that pt has been coughing after drinking fluids and plans to order swallow evaluation. #1 Nutrition Diagnosis Predicted suboptimal energy intake Etiology dementia, acute metabolic encephalopathy As Evidenced by Signs and Symptoms no diet ordered Is patient on ventilator? No Is Patient Ambulatory and/or Out of Bed No REE-(Barnwell-St. Jeor-confined to bed) 1459.128 Calculation Used for Recommendations [facility] Additional Notes Protein Needs: 68-82g (1-1.2g/ kg) Fluid Needs: 1 ml/kcal Nutrition Intervention Change Diet Order: Per ST Add Supplement/Snack (indicate name/kcal Glucerna 1 daily once diet /protein ) advanced Provides kCal: 220 Provides Protein (gm) 10 Goal #[address] recommendation Anticipated Discharge Needs: unable to determine at this time Follow-Up By: 03/21/19 Additional Comments Follow for swallow evaluation results,PO and ONS intakes
[2019-03-18] MEDS ORDERED: APRESOLINE IV PRN (08:30)
[2019-03-18] MEDS: SYNTHROID PO SCH (09:19)
[2019-03-18] MEDS: SODIUM CHLORIDE FLUSH SYRINGE 10 ML IV SCH ×2 (09:19→09:24)
[2019-03-18] MEDS: NEURONTIN PO SCH ×3 (09:19→23:49)
[2019-03-18] MEDS: TOPROL XL PO SCH (09:23)
[2019-03-18] MEDS: BABY ASPIRIN PO SCH (09:23)
[2019-03-18] MEDS: LOVENOX SUB-Q SCH (09:24)
[2019-03-18] MEDS: ZESTRIL PO SCH (09:28)
--- NOTE | 2019-03-18 10:12 | Progress Note ---
Subjective - Reason for Consult Consult date: 03/18/19 Reason for consult: Psychiatry Follow-up - Chief Complaint Chief complaint: "The patient's has incoherent speech today" 73 y.o. AA female who presented to the ER for AMS. This patient is known to me. Today the patient is calm, but still disorganized during the assessment. Per the sitter, the patient ate 100% of her breakfast this morning with assistance. She is restraint free. No gestures of SI/HI's. Mental Status Exam - Vital signs Last Vital Signs Temp 97.9 F 03/18/19 07:42 Pulse 82 03/18/19 09:23 Resp 20 03/18/19 07:42 BP 199/88 03/18/19 09:23 Pulse Ox 98 03/18/19 07:42 - Exam Narrative exam: Unable to complete the MSE because of the patient's condition. Assessment and Plan Impression: Delirium. Hx of Schizophrenia/Dementia. Today the patient was calm, but still disorganized during the assessment. DDx Unspecified Psychosis Medical: Acute Metabolic Encephalopathy, NA 153 Recommendation/Plan: Continue 1013, Aricept 5 mg PO BID for dementia, and Depakote Sprinles 250 mg PO BID for mood. The patient takes clozaril, but the medications isn't on formulary. A message was left for the patient's daughter Lauren Giang. reference Clozaril. If she bring the Clozaril to the hospital, the starting dose is 25 mg PO BID. Dispo: Proper dispo will be determined once the patient is medically clear. Staffed with Dr Nette Henry.
[2019-03-18] MEDS: D5W 1,000 ML IV SCH ×2 (10:41→18:27)
[2019-03-19] MEDS: SYNTHROID PO SCH (06:20)
[2019-03-19] MEDS: D5W 1,000 ML IV SCH ×3 (06:23→18:05)
[2019-03-19] MEDS: HumaLOG SUB-Q SCH ×5 (06:25→22:33)
[2019-03-19] MEDS: SODIUM CHLORIDE FLUSH SYRINGE 10 ML IV SCH ×3 (06:25→22:34)
[2019-03-19] MEDS: COLACE PO SCH ×3 (06:25→22:31)
[2019-03-19 06:32] LABS: Calcium 8.3 mg/dL (8.4-10.2)
[2019-03-19] MEDS: NEURONTIN PO SCH ×2 (09:06→22:32)
[2019-03-19] MEDS: LOVENOX SUB-Q SCH (09:08)
[2019-03-19] MEDS: ZESTRIL PO SCH (09:11)
[2019-03-19] MEDS: ARICEPT PO SCH ×2 (09:11→22:31)
[2019-03-19] MEDS: BABY ASPIRIN PO SCH (09:11)
[2019-03-19] MEDS: TOPROL XL PO SCH (09:12)
--- NOTE | 2019-03-19 17:27 | Progress Note ---
Assessment and Plan Assessment and plan: --Acute metabolic encephalopathy; multifactorial, bipolar disorder Electrolyte imbalance, history of subdural hematoma Continue supportive care --Hypernatremia ;Significant improvement Na 153-145, likely secondary to dehydration, encourage plenty of oral fluids, D5W, monitor electrolytes --Dehydration; IV fluids, encourage plenty of oral fluids --Leukocytosis; resolved, closely monitor --DM2; Accu-Chek sliding scale coverage and ADA diet, oral hypoglycemics if needed --Hypertension: uncontrolled: cont current anti hypertensives.PRN hydralazine --HTN,; moderate control, continue current antihypertensives and when necessary medications --Dementia; supportive care. Psych evaluation --Bipolar disorder; psych evaluation, continue current management --History of subdural hematoma; stable --DVT prophylaxis; SCDs Follow psych evaluation and recommendations monitor closely and adjust the management as needed Possible discharge in 1-2 days if stable Hospitalist Physical - Constitutional Vitals: Temp Pulse Resp BP Pulse Ox 97.2 F L 66 20 160/67 99 03/19/19 07:25 03/19/19 16:25 03/19/19 16:25 03/19/19 16:25 03/19/19 16:25 General appearance: Present: no acute distress, well-nourished - EENT Eyes: Present: PERRL, EOM intact - Neck Neck: Present: supple, normal ROM - Respiratory Respiratory effort: normal Respiratory: bilateral: diminished, negative: rales, rhonchi, wheezing - Cardiovascular Rhythm: regular Heart Sounds: Present: S1 & S2 - Extremities Extremities: no ischemia, No edema - Abdominal General gastrointestinal: deferred, non-tender, non-distended, normal bowel so unds - Integumentary Integumentary: Present: clear, warm - Psychiatric Psychiatric: cooperative, other (confused) - Neurologic Neurologic: moves all extremities Results - Labs CBC & Chem 7: 03/17/19 05:52 03/19/19 05:10 Labs: Laboratory Last Values WBC 10.9 K/mm3 (4.5-11.0) 03/17/19 05:52 RBC 4.23 M/mm3 (3.65-5.03) 03/17/19 05:52 Hgb 10.7 gm/dl (10.1-14.3) 03/17/19 05:52 Hct 33.7 % (30.3-42.9) 03/17/19 05:52 MCV 80 fl (79-97) 03/17/19 05:52 MCH 25 pg (28-32) L 03/17/19 05:52 MCHC 32 % (30-34) 03/17/19 05:52 RDW 14.9 % (13.2-15.2) 03/17/19 05:52 Plt Count 375 K/mm3 (140-440) 03/17/19 05:52 Lymph % (Auto) 27.7 % (13.4-35.0) 03/17/19 05:52 [place] % (Auto) 7.6 % (0.0-7.3) H 03/17/19 05:52 Eos % (Auto) 0.1 % (0.0-4.3) 03/17/19 05:52 Baso % (Auto) 0.7 % (0.0-1.8) 03/17/19 05:52 Lymph # 3.0 K/mm3 (1.2-5.4) 03/17/19 05:52 [place] # 0.8 K/mm3 (0.0-0.8) 03/17/19 05:52 Eos # 0.0 K/mm3 (0.0-0.4) 03/17/19 05:52 Baso # 0.1 K/mm3 (0.0-0.1) 03/17/19 05:52 Seg Neutrophils % 63.9 % (40.0-70.0) 03/17/19 05:52 Seg Neutrophils # 7.0 K/mm3 (1.8-7.7) 03/17/19 05:52 Sodium 145 mmol/L (137-145) D 03/19/19 05:10 Potassium 5.1 mmol/L (3.6-5.0) H D 03/19/19 05:10 Chloride 110.4 mmol/L (98-107) H 03/19/19 05:10 Carbon Dioxide 21 mmol/L (22-30) L 03/19/19 05:10 19 mmol/L 03/19/19 05:10 BUN 13 mg/dL (7-17) 03/19/19 05:10 1.1 mg/dL (0.7-1.2) 03/19/19 05:10 Estimated GFR 59 ml/min 03/19/19 05:10 12 % 03/19/19 05:10 Glucose 146 mg/dL (65-100) H 03/19/19 05:10 POC Glucose 138 (70-105) H 03/19/19 16:14 6.5 % (4-6) H 03/17/19 00:26 Lactic Acid 1.50 mmol/L (0.7-2.0) 03/16/19 21:34 Calcium 8.3 mg/dL (8.4-10.2) L 03/19/19 05:10 Magnesium 1.90 mg/dL (1.7-2.3) 03/18/19 05:38 0.30 mg/dL (0.1-1.2) 03/16/19 21:30 < 0.2 mg/dL (0-0.2) 03/16/19 21:30 0.1 mg/dL 03/16/19 21:30 AST 36 units/L (5-40) 03/16/19 21:30 ALT 25 units/L (7-56) 03/16/19 21:30 120 units/L (35-129) 03/16/19 21:30 49.0 umol/L (25-60) 03/16/19 21:34 90 units/L (30-135) 03/16/19 23:36 6.8 g/dL (6.3-8.2) 03/16/19 21:30 3.8 g/dL (3.9-5) L 03/16/19 21:30 1.3 % 03/16/19 21:30 Amylase 53 units/L (27-131) 03/17/19 11:03 60 units/L (13-60) 03/17/19 11:03 Yellow (Yellow) 03/16/19 21:31 Clear (Clear) 03/16/19 21:31 5.0 (5.0-7.0) 03/16/19 21:31 Ur Specific [place] 1.018 (1.003-1.030) 03/16/19 21:31 <15 mg/dl mg/dL (Negative) 03/16/19 21:31 Neg mg/dL (Negative) 03/16/19 21:31 Tr mg/dL (Negative) 03/16/19 21:31 Neg (Negative) 03/16/19 21:31 Neg (Negative) 03/16/19 21:31 Neg (Negative) 03/16/19 21:31 2.0 mg/dL (<2.0) 03/16/19 21:31 Ur Leukocyte Esterase Neg (Negative) 03/16/19 21:31 < 1.0 /HPF (0.0-6.0) 03/16/19 21:31 < 1.0 /HPF (0.0-6.0) 03/16/19 21:31 Few /HPF 03/16/19 21:31 Salicylates < 0.3 mg/dL (2.8-20.0) L 03/16/19 21:30 Presumptive negative 03/16/19 21:31 Presumptive negative 03/16/19 21:31 Acetaminophen < 5.0 ug/mL (10.0-30.0) L 03/16/19 21:30 Ur Barbiturates Screen Presumptive negative 03/16/19 21:31 Valproic Acid 32.8 ug/mL (50-100) L 03/17/19 11:03 Ur Phencyclidine Scrn Presumptive negative 03/16/19 21:31 Ur Amphetamines Screen Presumptive negative 03/16/19 21:31 U Benzodiazepines Scrn Presumptive negative 03/16/19 21:31 Presumptive negative 03/16/19 21:31 U Marijuana (THC) Screen Presumptive negative 03/16/19 21:31 Disclamer 03/16/19 21:31 Active Medications - Current Medications Current Medications: Generic Name Dose Route Start Last Admin Trade Name Freq PRN Reason Stop Dose Admin Acetaminophen 650 mg 03/16/19 23:48 Tylenol PO Q4H PRN Pain MILD(1-3)/Fever >100.5/MCNEILL Aspirin 81 mg 03/17/19 10:00 03/19/19 09:11 Baby Aspirin PO 81 mg DAILY GIL Administration Atorvastatin Calcium 10 mg 03/17/19 10:00 03/19/19 09:11 Lipitor PO 10 mg DAILY GIL Administration Clonazepam 0.25 mg 03/17/19 10:00 03/19/19 09:12 Klonopin PO 0.25 mg BID GIL Administration Dextrose 50 ml 03/17/19 00:00 D50w (25gm) Syringe IV PRN PRN Hypoglycemia Divalproex Sodium 250 mg 03/17/19 10:00 03/19/19 09:13 Depakote Sprinkle PO 250 mg BID GIL Administration Docusate Sodium 100 mg 03/17/19 10:00 03/19/19 09:06 Colace PO 100 mg BID GIL Administration Donepezil HCl 5 mg 03/17/19 10:00 03/19/19 09:11 Aricept PO 5 mg BID GIL Administration Enoxaparin Sodium 40 mg 03/17/19 10:00 03/19/19 09:08 Lovenox SUB-Q 40 mg QDAY GIL Administration Gabapentin 300 mg 03/17/19 10:00 03/19/19 09:06 Neurontin PO 300 mg BID GIL Administration Hydralazine HCl 10 mg 03/18/19 08:30 Apresoline IV Q4H PRN Hypertension Dextrose 1,000 mls @ 125 mls/hr 03/16/19 23:45 03/19/19 10:18 D5w IV 125 mls/hr DIRECT GIL Administration Insulin Human Lispro 0 unit 03/17/19 07:30 03/19/19 16:34 Humalog SUB-Q Not Given ACHS [facility] Protocol Levothyroxine Sodium 150 mcg 03/17/19 06:00 03/19/19 06:20 Synthroid PO 150 mcg DAILY@0600 GIL Administration Lisinopril 10 mg 03/17/19 10:00 03/19/19 09:11 Zestril PO 10 mg DAILY GIL Administration Metoprolol Succinate 50 mg 03/17/19 10:00 03/19/19 09:12 Toprol Xl PO 50 mg DAILY GIL Administration Ondansetron HCl 4 mg 03/16/19 23:48 Zofran IV Q8H PRN Nausea And Vomiting Sodium Chloride 10 ml 03/17/19 10:00 03/19/19 09:13 Sodium Chloride Flush Syringe 10 Ml IV Not Given BID GIL Sodium Chloride 10 ml 03/16/19 23:48 Sodium Chloride Flush Syringe 10 Ml IV PRN PRN LINE FLUSH Nutrition/Malnutrition Assess - Dietary Evaluation Nutrition/Malnutrition Findings: Nutrition Notes Start: 03/17/19 16:07 Freq: Status: Active Protocol: Document 03/17/19 16:08 RM (Rec: 03/17/19 16:16 RM [id number]) Nutrition Notes Need for Assessment generated from: MD Order Initial or Follow up Assessment Current Diagnosis Diabetes,Hypertension Other Pertinent Diagnosis Dementia, Hypothyroidism, Bipolar disorder, Acute metabolic encephalopathy Current Diet Pureed Labs/Tests Reviewed Pertinent Medications Reviewed Height 5 ft 7 in Weight 68.3 kg [place] Body Weight (kg) 61.36 BMI 23.6 Subjective/Other Information Consulted for malnutrition. Pt confused at time of visit. No family present. No temporal or orbital wasting. Nurse stated that pt has been coughing after drinking fluids and plans to order swallow evaluation. #1 Nutrition Diagnosis Predicted suboptimal energy intake Etiology dementia, acute metabolic encephalopathy As Evidenced by Signs and Symptoms no diet ordered Is patient on ventilator? No Is Patient Ambulatory and/or Out of Bed No REE-([facility]-confined to bed) 1459.128 Calculation Used for Recommendations [facility] Additional Notes Protein Needs: 68-82g (1-1.2g/ kg) Fluid Needs: 1 ml/kcal Nutrition Intervention Change Diet Order: Per ST Add Supplement/Snack (indicate name/kcal Glucerna 1 daily once diet /protein ) advanced Provides kCal: 220 Provides Protein (gm) 10 Goal #[address] recommendation Anticipated Discharge Needs: unable to determine at this time Follow-Up By: 03/21/19 Additional Comments Follow for swallow evaluation results,PO and ONS intakes
--- NOTE | 2019-03-19 19:45 | Progress Note ---
Subjective - Reason for Consult Consult date: 03/19/19 Reason for consult: follow up - Chief Complaint Chief complaint: "Get away from me!" 73 y.o. AA female who presented to the ER for AMS. Her sitter reports she was doing well today and was communicating and eating. In the evening she began to be agitated and was kicking at her sitter when she was arranging her covers. She is not in restraints. Her family has not brought the clozapine. During the vi sit, she was able to be verbally deescalated as long as she or her bedding was not touched. Mental Status Exam - Vital signs Last Vital Signs Temp 97.2 F L 03/19/19 07:25 Pulse 66 03/19/19 16:25 Resp 20 03/19/19 16:25 BP 160/67 03/19/19 16:25 Pulse Ox 99 03/19/19 16:25 - Exam Narrative exam: oriented to person agitated and intermittently kicking at staff Assessment and Plan Impression: Delirium. Hx of Schizophrenia/bipolar/Dementia. DDx Unspecified Psychosis Medical: Acute Metabolic Encephalopathy, NA 145 Recommendation/Plan: Continue 1013, Aricept 5 mg PO BID for dementia, and Depakote Sprinkles 250 mg PO BID for mood. The patient takes clozaril, but the medications isn't on formulary. A message was left for the patient's daughter Lauren Giang. reference Clozaril. If she brings the Clozaril to the hospital, the starting dose is 25 mg PO BID. Dispo: Proper dispo will be determined when the patient is medically clear. Consider return to the SNF ([facility]) if there will be psychiatric follow up upon her return Will staff with Dr Nette Henry.
[2019-03-20] MEDS: D5W 1,000 ML IV SCH (02:12)
[2019-03-20] MEDS: SYNTHROID PO SCH (06:26)
[2019-03-20] MEDS: HumaLOG SUB-Q SCH ×4 (07:33→22:15)
[2019-03-20] MEDS: LOVENOX SUB-Q SCH (09:06)
[2019-03-20] MEDS: TOPROL XL PO SCH (09:07)
[2019-03-20] MEDS: COLACE PO SCH ×2 (09:08→22:15)
[2019-03-20] MEDS: BABY ASPIRIN PO SCH (09:09)
[2019-03-20] MEDS: ZESTRIL PO SCH (09:09)
[2019-03-20] MEDS: ARICEPT PO SCH ×2 (09:09→22:15)
[2019-03-20] MEDS: NEURONTIN PO SCH ×2 (09:10→22:14)
[2019-03-20] MEDS: SODIUM CHLORIDE FLUSH SYRINGE 10 ML IV SCH ×2 (09:19→22:15)
--- NOTE | 2019-03-20 12:28 | Progress Note ---
Assessment and Plan Assessment and plan: --Acute metabolic encephalopathy; multifactorial, bipolar disorder Electrolyte imbalance, history of subdural hematoma Continue supportive care --Hypernatremia ; Na 153-145, resolved encourage plenty of oral fluids, D5W, monitor electrolytes --Dehydration; IV fluids, encourage plenty of oral fluids --Leukocytosis; resolved, closely monitor --DM2; Accu-Chek sliding scale coverage and ADA diet, oral hypoglycemics if needed --Hypertension: uncontrolled: cont current anti hypertensives.PRN hydralazine --HTN,; moderate control, continue current antihypertensives and when necessary medications --Dementia; supportive care. Psych evaluation --Bipolar disorder; psych evaluation, continue current management --History of subdural hematoma; stable --DVT prophylaxis; SCDs Follow psych evaluation and recommendations monitor closely and adjust the management as needed Possible discharge in 1-2 days if stable DC planning per CM History Interval history: Sincerely and examined medical records reviewed Patient is alert and awake continuous nonverbal Safety the bedside Not in acute distress Vital signs stated Hospitalist Physical - Constitutional Vitals: Temp Pulse Resp BP Pulse Ox 97.3 F L 88 18 147/77 96 03/20/19 11:30 03/20/19 11:30 03/20/19 11:30 03/20/19 11:30 03/20/19 10:00 General appearance: Present: no acute distress, well-nourished - EENT Eyes: Present: PERRL, EOM intact - Neck Neck: Present: supple, normal ROM - Respiratory Respiratory: bilateral: diminished, negative: rales, rhonchi, wheezing - Cardiovascular Rhythm: regular Heart Sounds: Present: S1 & S2 - Extremities Extremities: no ischemia, No edema - Abdominal General gastrointestinal: soft, non-tender, non-distended, normal bowel sounds - Integumentary Integumentary: Present: clear, warm - Psychiatric Psychiatric: appropriate mood/affect, cooperative - Neurologic Neurologic: CNII-XII intact, moves all extremities Results - Labs CBC & Chem 7: 03/17/19 05:52 03/19/19 05:10 Labs: Laboratory Last Values WBC 10.9 K/mm3 (4.5-11.0) 03/17/19 05:52 RBC 4.23 M/mm3 (3.65-5.03) 03/17/19 05:52 Hgb 10.7 gm/dl (10.1-14.3) 03/17/19 05:52 Hct 33.7 % (30.3-42.9) 03/17/19 05:52 MCV 80 fl (79-97) 03/17/19 05:52 MCH 25 pg (28-32) L 03/17/19 05:52 MCHC 32 % (30-34) 03/17/19 05:52 RDW 14.9 % (13.2-15.2) 03/17/19 05:52 Plt Count 375 K/mm3 (140-440) 03/17/19 05:52 Lymph % (Auto) 27.7 % (13.4-35.0) 03/17/19 05:52 [place] % (Auto) 7.6 % (0.0-7.3) H 03/17/19 05:52 Eos % (Auto) 0.1 % (0.0-4.3) 03/17/19 05:52 Baso % (Auto) 0.7 % (0.0-1.8) 03/17/19 05:52 Lymph # 3.0 K/mm3 (1.2-5.4) 03/17/19 05:52 [place] # 0.8 K/mm3 (0.0-0.8) 03/17/19 05:52 Eos # 0.0 K/mm3 (0.0-0.4) 03/17/19 05:52 Baso # 0.1 K/mm3 (0.0-0.1) 03/17/19 05:52 Seg Neutrophils % 63.9 % (40.0-70.0) 03/17/19 05:52 Seg Neutrophils # 7.0 K/mm3 (1.8-7.7) 03/17/19 05:52 Sodium 145 mmol/L (137-145) D 03/19/19 05:10 Potassium 5.1 mmol/L (3.6-5.0) H D 03/19/19 05:10 Chloride 110.4 mmol/L (98-107) H 03/19/19 05:10 Carbon Dioxide 21 mmol/L (22-30) L 03/19/19 05:10 19 mmol/L 03/19/19 05:10 BUN 13 mg/dL (7-17) 03/19/19 05:10 1.1 mg/dL (0.7-1.2) 03/19/19 05:10 Estimated GFR 59 ml/min 03/19/19 05:10 12 % 03/19/19 05:10 Glucose 146 mg/dL (65-100) H 03/19/19 05:10 POC Glucose 128 (70-105) H 03/20/19 07:37 6.5 % (4-6) H 03/17/19 00:26 Lactic Acid 1.50 mmol/L (0.7-2.0) 03/16/19 21:34 Calcium 8.3 mg/dL (8.4-10.2) L 03/19/19 05:10 Magnesium 1.90 mg/dL (1.7-2.3) 03/18/19 05:38 0.30 mg/dL (0.1-1.2) 03/16/19 21:30 < 0.2 mg/dL (0-0.2) 03/16/19 21:30 0.1 mg/dL 03/16/19 21:30 AST 36 units/L (5-40) 03/16/19 21:30 ALT 25 units/L (7-56) 03/16/19 21:30 120 units/L (35-129) 03/16/19 21:30 49.0 umol/L (25-60) 03/16/19 21:34 90 units/L (30-135) 03/16/19 23:36 6.8 g/dL (6.3-8.2) 03/16/19 21:30 3.8 g/dL (3.9-5) L 03/16/19 21:30 1.3 % 03/16/19 21:30 Amylase 53 units/L (27-131) 03/17/19 11:03 60 units/L (13-60) 03/17/19 11:03 Yellow (Yellow) 03/16/19 21:31 Clear (Clear) 03/16/19 21:31 5.0 (5.0-7.0) 03/16/19 21:31 Ur Specific [place] 1.018 (1.003-1.030) 03/16/19 21:31 <15 mg/dl mg/dL (Negative) 03/16/19 21:31 Neg mg/dL (Negative) 03/16/19 21:31 Tr mg/dL (Negative) 03/16/19 21:31 Neg (Negative) 03/16/19 21:31 Neg (Negative) 03/16/19 21:31 Neg (Negative) 03/16/19 21:31 2.0 mg/dL (<2.0) 03/16/19 21:31 Ur Leukocyte Esterase Neg (Negative) 03/16/19 21:31 < 1.0 /HPF (0.0-6.0) 03/16/19 21:31 < 1.0 /HPF (0.0-6.0) 03/16/19 21:31 Few /HPF 03/16/19 21:31 Salicylates < 0.3 mg/dL (2.8-20.0) L 03/16/19 21:30 Presumptive negative 03/16/19 21:31 Presumptive negative 03/16/19 21:31 Acetaminophen < 5.0 ug/mL (10.0-30.0) L 03/16/19 21:30 Ur Barbiturates Screen Presumptive negative 03/16/19 21:31 Valproic Acid 32.8 ug/mL (50-100) L 03/17/19 11:03 Ur Phencyclidine Scrn Presumptive negative 03/16/19 21:31 Ur Amphetamines Screen Presumptive negative 03/16/19 21:31 U Benzodiazepines Scrn Presumptive negative 03/16/19 21:31 Presumptive negative 03/16/19 21:31 U Marijuana (THC) Screen Presumptive negative 03/16/19 21:31 Disclamer 03/16/19 21:31 Active Medications - Current Medications Current Medications: Generic Name Dose Route Start Last Admin Trade Name Freq PRN Reason Stop Dose Admin Acetaminophen 650 mg 03/16/19 23:48 Tylenol PO Q4H PRN Pain MILD(1-3)/Fever >100.5/MCNEILL Aspirin 81 mg 03/17/19 10:00 03/20/19 09:09 Baby Aspirin PO 81 mg DAILY GIL Administration Atorvastatin Calcium 10 mg 03/17/19 10:00 03/20/19 09:09 Lipitor PO 10 mg DAILY GIL Administration Clonazepam 0.25 mg 03/17/19 10:00 03/20/19 09:08 Klonopin PO 0.25 mg BID GIL Administration Dextrose 50 ml 03/17/19 00:00 D50w (25gm) Syringe IV PRN PRN Hypoglycemia Divalproex Sodium 250 mg 03/17/19 10:00 03/20/19 09:10 Depakote Sprinkle PO 250 mg BID GIL Administration Docusate Sodium 100 mg 03/17/19 10:00 03/20/19 09:08 Colace PO 100 mg BID GIL Administration Donepezil HCl 5 mg 03/17/19 10:00 03/20/19 09:09 Aricept PO 5 mg BID GIL Administration Enoxaparin Sodium 40 mg 03/17/19 10:00 03/20/19 09:06 Lovenox SUB-Q 40 mg QDAY GIL Administration Gabapentin 300 mg 03/17/19 10:00 03/20/19 09:10 Neurontin PO 300 mg BID GIL Administration Hydralazine HCl 10 mg 03/18/19 08:30 Apresoline IV Q4H PRN Hypertension Insulin Human Lispro 0 unit 03/17/19 07:30 03/20/19 11:32 Humalog SUB-Q Not Given ACHS [facility] Protocol Levothyroxine Sodium 150 mcg 03/17/19 06:00 03/20/19 06:26 Synthroid PO 150 mcg DAILY@0600 GIL Administration Lisinopril 10 mg 03/17/19 10:00 03/20/19 09:09 Zestril PO 10 mg DAILY GIL Administration Metoprolol Succinate 50 mg 03/17/19 10:00 03/20/19 09:07 Toprol Xl PO 50 mg DAILY GIL Administration Ondansetron HCl 4 mg 03/16/19 23:48 Zofran IV Q8H PRN Nausea And Vomiting Sodium Chloride 10 ml 03/17/19 10:00 03/20/19 09:19 Sodium Chloride Flush Syringe 10 Ml IV Not Given BID GIL Sodium Chloride 10 ml 03/16/19 23:48 Sodium Chloride Flush Syringe 10 Ml IV PRN PRN LINE FLUSH Nutrition/Malnutrition Assess - Dietary Evaluation Nutrition/Malnutrition Findings: Nutrition Notes Start: 03/17/19 16:07 Freq: Status: Active Protocol: Document 03/17/19 16:08 RM (Rec: 03/17/19 16:16 RM [id number]) Nutrition Notes Need for Assessment generated from: MD Order Initial or Follow up Assessment Current Diagnosis Diabetes,Hypertension Other Pertinent Diagnosis Dementia, Hypothyroidism, Bipolar disorder, Acute metabolic encephalopathy Current Diet Pureed Labs/Tests Reviewed Pertinent Medications Reviewed Height 5 ft 7 in Weight 68.3 kg [place] Body Weight (kg) 61.36 BMI 23.6 Subjective/Other Information Consulted for malnutrition. Pt confused at time of visit. No family present. No temporal or orbital wasting. Nurse stated that pt has been coughing after drinking fluids and plans to order swallow evaluation. #1 Nutrition Diagnosis Predicted suboptimal energy intake Etiology dementia, acute metabolic encephalopathy As Evidenced by Signs and Symptoms no diet ordered Is patient on ventilator? No Is Patient Ambulatory and/or Out of Bed No REE-([facility] [place]-confined to bed) 3279.128 Calculation Used for Recommendations [facility] Additional Notes Protein Needs: 68-82g (1-1.2g/ kg) Fluid Needs: 1 ml/kcal Nutrition Intervention Change Diet Order: Per ST Add Supplement/Snack (indicate name/kcal Glucerna 1 daily once diet /protein ) advanced Provides kCal: 220 Provides Protein (gm) 10 Goal #[address] recommendation Anticipated Discharge Needs: unable to determine at this time Follow-Up By: 03/21/19 Additional Comments Follow for swallow evaluation results,PO and ONS intakes
--- NOTE | 2019-03-20 19:06 | Progress Note ---
Subjective - Reason for Consult Consult date: 03/20/19 Reason for consult: follow up - Chief Complaint Chief complaint: "Get away from me!" 73 y.o. AA female who presented to the ER for AMS. Her sitter reports she was doing well today and was communicating and eating. In the evening she began to be agitated and was rambling. She is not in restraints. Her family has not brought the clozapine and is unable because she was discharged from the SNF, where she was receiving psychiatric care and meds. Mental Status Exam - Vital signs Last Vital Signs Temp 98.2 F 03/20/19 16:30 Pulse 68 03/20/19 16:30 Resp 18 03/20/19 11:30 BP 148/59 03/20/19 16:30 Pulse Ox 96 03/20/19 10:00 - Exam Narrative exam: oriented to person agitated She says she needs her medicine Assessment and Plan Impression: Delirium. Hx of Schizophrenia/bipolar/Dementia. DDx Unspecified Psychosis Medical: Acute Metabolic Encephalopathy, NA 145 Recommendation/Plan: Continue 1013, Aricept 5 mg PO BID for dementia, and Depakote Sprinkles 250 mg PO BID for mood. The patient takes clozaril, but the medications isn't on formulary. The family is unable to get the clozaril. Dispo: Proper dispo will be determined when the patient is medically clear. Will staff with Dr Nette Henry.
[2019-03-21] MEDS: SYNTHROID PO SCH (05:44)
[2019-03-21] MEDS: HumaLOG SUB-Q SCH ×4 (07:22→22:19)
[2019-03-21] MEDS: NEURONTIN PO SCH ×2 (09:22→22:17)
[2019-03-21] MEDS: LOVENOX SUB-Q SCH (09:24)
[2019-03-21] MEDS: COLACE PO SCH ×2 (09:26→22:18)
[2019-03-21] MEDS: ARICEPT PO SCH ×2 (09:28→22:18)
[2019-03-21] MEDS: BABY ASPIRIN PO SCH (09:28)
[2019-03-21] MEDS: TOPROL XL PO SCH (09:30)
[2019-03-21] MEDS: ZESTRIL PO SCH (09:31)
[2019-03-21] MEDS: SODIUM CHLORIDE FLUSH SYRINGE 10 ML IV SCH ×2 (09:32→22:19)
--- NOTE | 2019-03-21 11:01 | Progress Note ---
Subjective - Reason for Consult Consult date: 03/21/19 Reason for consult: Psychiatry Follow-up - Chief Complaint Chief complaint: "The patient is somewhat agitated" 73 y.o. AA female who presented to the ER for AMS. This patient is known to me. Today the patient is calm, but somewhat agitated during the assessment. Per the sitter, the patient ate her breakfast with assistance by her daughter. She is restraint free. No gestures of SI/HI's. Mental Status Exam - Vital signs Last Vital Signs Temp 98.2 F 03/21/19 07:27 Pulse 100 H 03/21/19 10:00 Resp 18 03/21/19 07:27 BP 106/81 03/21/19 09:30 Pulse Ox 94 03/21/19 10:00 - Exam Narrative exam: Unable to complete the MSE because of the patient's condition. Assessment and Plan Impression: Delirium. Hx of Schizophrenia/Dementia. Today the patient was calm, but somewhat agitated during the assessment. DDx Unspecified Psychosis Medical: Acute Metabolic Encephalopathy Recommendation/Plan: Continue 1013, Aricept 5 mg PO BID for dementia, and Depakote Sprinles 250 mg PO BID for mood. The patient takes clozaril, but the medications isn't on formulary. A message was left for the patient's daughter Lauren Giang. reference Clozaril. If she bring the Clozaril to the hospital, the starting dose is 25 mg PO BID. Psy sign off. Dispo: Per the patient's assigned nurse, she was accepted by the [facility] on the 5th floor. Will staff with Dr Nette Henry.
--- NOTE | 2019-03-21 13:45 | Discharge Summary ---
Providers - Providers Date of Admission: 03/16/19 23:48 Date of discharge: 03/21/19 Attending physician: ANNETTE JACKSON 03/17/19 00:00 Consult to Dietitian/Nutrition [CONS] Routine Physician Instructions: Reason For Exam: Reason for Consult: Malnutrition 03/17/19 00:14 Consult to Case Management [CONS] Routine Services Needed at Discharge: Payroll And Benefits Specialist Notified:: MH breaker up 03/17/19 03:42 psychiatry consult [Consult to Mental Health] [CONS] Routine Reason For Exam: 1013, bipolar disorder, Place consult to:: psych Notified:: RUSSELL Was contact made?: Yes 03/17/19 10:52 Speech Therapy Evaluation and Treat [CONS] Stat Reason For Exam: Pt. hypernatremic w/ need for fluids...dysphagia 03/17/19 12:39 Physical Therapy Evaluation and Treat [CONS] Routine Comment: Reason For Exam: Weakness Primary care physician: AMARI WALLS MD Hospitalization Reason for admission: Altered level of consciousness Condition: Fair Hospital course: 73-year-old female patient resident of care home with multiple medical problems including dementia and bipolar disorder hypertension diabetes hypot hyroidism is admitted through emergency room with altered level of consciousness Patient was symptomatically managed evaluated by psych, placed on 1013 status initially Medications optimized, once patient is stable. 1013 status discontinued Patient had multiple electrolyte imbalances corrected Today patient is comfortable, no agitation or aggression, calm and able to communicate sometimes rambles and makes sounds . not in distress vital signs reviewed stable Case management has evaluated the patient, psych cleared and signed off Patient is hemodynamically and clinically stable for discharge and transfer to SNF today Discharge diagnosis; --Acute metabolic encephalopathy; multifactorial, bipolar disorder Electrolyte imbalance, history of subdural hematoma Continue supportive care --Hypernatremia ; Na 153-145, resolved encourage plenty of oral fluids, D5W, monitor electrolytes --Dehydration; IV fluids, encourage plenty of oral fluids --Leukocytosis; resolved, closely monitor --DM2; Accu-Chek sliding scale coverage and ADA diet, oral hypoglycemics if needed --Hypertension: uncontrolled: cont current anti hypertensives.PRN hydralazine --HTN,; moderate control, continue current antihypertensives and when necessary medications --Dementia; supportive care. Psych evaluation --Bipolar disorder; psych evaluation, continue current management --History of subdural hematoma; stable --DVT prophylaxis; SCDs Disposition: DC/[place]-03 SNF W [facility] Time spent for discharge: 32 min Core Measure Documentation - Palliative Care Palliative Care/ Comfort Measures: Not Applicable - Core Measures Any of the following diagnoses?: none Exam - Constitutional Vitals: Temp Pulse Resp BP Pulse Ox 97.7 F 82 18 125/90 96 03/21/19 13:07 03/21/19 13:07 03/21/19 13:07 03/21/19 13:07 03/21/19 13:07 General appearance: Present: no acute distress, well-nourished - EENT Eyes: Present: PERRL, EOM intact - Neck Neck: Present: supple, normal ROM - Respiratory Respiratory effort: normal Respiratory: negative: rales, rhonchi, wheezing - Cardiovascular Rhythm: regular Heart Sounds: Present: S1 & S2 - Extremities Extremities: no ischemia, No edema - Abdominal General gastrointestinal: Present: soft, non-tender, non-distended, normal bowel sounds - Integumentary Integumentary: Present: clear, warm - Musculoskeletal Musculoskeletal: strength equal bilaterally - Psychiatric Psychiatric: cooperative, other (understands the conversation) - Neurologic Neurologic: moves all extremities Plan Activity: advance as tolerated, fall precautions Diet: advance as tolerated, other (soft diet) Special Instructions: physical therapy Follow up with: AMARI WALLS MD [Primary Care Provider] - 3-5 Days
--- NOTE | 2019-03-21 17:53 | Progress Note ---
Assessment and Plan Assessment and plan: --Acute metabolic encephalopathy; multifactorial, bipolar disorder Electrolyte imbalance, history of subdural hematoma Continue supportive care --Hypernatremia ; resolved encourage plenty of oral fluids, D5W, monitor electrolytes --Dehydration; IV fluids, encourage plenty of oral fluids --Leukocytosis; resolved, closely monitor --DM2; Accu-Chek sliding scale coverage and ADA diet, oral hypoglycemics if needed --Hypertension: uncontrolled: cont current anti hypertensives.PRN hydralazine --HTN,; moderate control, continue current antihypertensives and when necessary medications --Dementia; supportive care. Psych evaluation --Bipolar disorder; psych evaluation, continue current management --History of subdural hematoma; stable --DVT prophylaxis; SCDs Follow psych evaluation and recommendations. Initially accepted by [facility] but later refused DC planning per CM, Disposition: Discharge to SNF in 1-2 days History Interval history: Patient seen and examined No new complaints Vital signs stable Hospitalist Physical - Constitutional Vitals: Temp Pulse Resp BP Pulse Ox 97.7 F 82 18 125/90 96 03/21/19 13:07 03/21/19 13:07 03/21/19 13:07 03/21/19 13:07 03/21/19 13:07 General appearance: Present: no acute distress, well-nourished - EENT Eyes: Present: PERRL, EOM intact - Neck Neck: Present: supple, normal ROM - Respiratory Respiratory effort: normal Respiratory: bilateral: diminished, negative: rales, rhonchi, wheezing - Cardiovascular Rhythm: regular Heart Sounds: Present: S1 & S2 - Extremities Extremities: no ischemia, pulses intact - Abdominal General gastrointestinal: soft, non-tender, non-distended, normal bowel sounds - Integumentary Integumentary: Present: clear, warm - Psychiatric Psychiatric: appropriate mood/affect, cooperative - Neurologic Neurologic: focal deficits, moves all extremities Results - Labs CBC & Chem 7: 03/17/19 05:52 03/19/19 05:10 Labs: Laboratory Last Values WBC 10.9 K/mm3 (4.5-11.0) 03/17/19 05:52 RBC 4.23 M/mm3 (3.65-5.03) 03/17/19 05:52 Hgb 10.7 gm/dl (10.1-14.3) 03/17/19 05:52 Hct 33.7 % (30.3-42.9) 03/17/19 05:52 MCV 80 fl (79-97) 03/17/19 05:52 MCH 25 pg (28-32) L 03/17/19 05:52 MCHC 32 % (30-34) 03/17/19 05:52 RDW 14.9 % (13.2-15.2) 03/17/19 05:52 Plt Count 375 K/mm3 (140-440) 03/17/19 05:52 Lymph % (Auto) 27.7 % (13.4-35.0) 03/17/19 05:52 [place] % (Auto) 7.6 % (0.0-7.3) H 03/17/19 05:52 Eos % (Auto) 0.1 % (0.0-4.3) 03/17/19 05:52 Baso % (Auto) 0.7 % (0.0-1.8) 03/17/19 05:52 Lymph # 3.0 K/mm3 (1.2-5.4) 03/17/19 05:52 Blair # 0.8 K/mm3 (0.0-0.8) 03/17/19 05:52 Eos # 0.0 K/mm3 (0.0-0.4) 03/17/19 05:52 Baso # 0.1 K/mm3 (0.0-0.1) 03/17/19 05:52 Seg Neutrophils % 63.9 % (40.0-70.0) 03/17/19 05:52 Seg Neutrophils # 7.0 K/mm3 (1.8-7.7) 03/17/19 05:52 Sodium 145 mmol/L (137-145) D 03/19/19 05:10 Potassium 5.1 mmol/L (3.6-5.0) H D 03/19/19 05:10 Chloride 110.4 mmol/L (98-107) H 03/19/19 05:10 Carbon Dioxide 21 mmol/L (22-30) L 03/19/19 05:10 19 mmol/L 03/19/19 05:10 BUN 13 mg/dL (7-17) 03/19/19 05:10 1.1 mg/dL (0.7-1.2) 03/19/19 05:10 Estimated GFR 59 ml/min 03/19/19 05:10 12 % 03/19/19 05:10 Glucose 146 mg/dL (65-100) H 03/19/19 05:10 POC Glucose 126 (70-105) H 03/21/19 16:06 6.5 % (4-6) H 03/17/19 00:26 Lactic Acid 1.50 mmol/L (0.7-2.0) 03/16/19 21:34 Calcium 8.3 mg/dL (8.4-10.2) L 03/19/19 05:10 Magnesium 1.90 mg/dL (1.7-2.3) 03/18/19 05:38 0.30 mg/dL (0.1-1.2) 03/16/19 21:30 < 0.2 mg/dL (0-0.2) 03/16/19 21:30 0.1 mg/dL 03/16/19 21:30 AST 36 units/L (5-40) 03/16/19 21:30 ALT 25 units/L (7-56) 03/16/19 21:30 120 units/L (35-129) 03/16/19 21:30 49.0 umol/L (25-60) 03/16/19 21:34 90 units/L (30-135) 03/16/19 23:36 6.8 g/dL (6.3-8.2) 03/16/19 21:30 3.8 g/dL (3.9-5) L 03/16/19 21:30 1.3 % 03/16/19 21:30 Amylase 53 units/L (27-131) 03/17/19 11:03 60 units/L (13-60) 03/17/19 11:03 Yellow (Yellow) 03/16/19 21:31 Clear (Clear) 03/16/19 21:31 5.0 (5.0-7.0) 03/16/19 21:31 Ur Specific [place] 1.018 (1.003-1.030) 03/16/19 21:31 <15 mg/dl mg/dL (Negative) 03/16/19 21:31 Neg mg/dL (Negative) 03/16/19 21:31 Tr mg/dL (Negative) 03/16/19 21:31 Neg (Negative) 03/16/19 21:31 Neg (Negative) 03/16/19 21:31 Neg (Negative) 03/16/19 21:31 2.0 mg/dL (<2.0) 03/16/19 21:31 Ur Leukocyte Esterase Neg (Negative) 03/16/19 21:31 < 1.0 /HPF (0.0-6.0) 03/16/19 21:31 < 1.0 /HPF (0.0-6.0) 03/16/19 21:31 Few /HPF 03/16/19 21:31 Salicylates < 0.3 mg/dL (2.8-20.0) L 03/16/19 21:30 Presumptive negative 03/16/19 21:31 Presumptive negative 03/16/19 21:31 Acetaminophen < 5.0 ug/mL (10.0-30.0) L 03/16/19 21:30 Ur Barbiturates Screen Presumptive negative 03/16/19 21:31 Valproic Acid 32.8 ug/mL (50-100) L 03/17/19 11:03 Ur Phencyclidine Scrn Presumptive negative 03/16/19 21:31 Ur Amphetamines Screen Presumptive negative 03/16/19 21:31 U Benzodiazepines Scrn Presumptive negative 03/16/19 21:31 Presumptive negative 03/16/19 21:31 U Marijuana (THC) Screen Presumptive negative 03/16/19 21:31 Disclamer 03/16/19 21:31 Active Medications - Current Medications Current Medications: Generic Name Dose Route Start Last Admin Trade Name Freq PRN Reason Stop Dose Admin Acetaminophen 650 mg 03/16/19 23:48 Tylenol PO Q4H PRN Pain MILD(1-3)/Fever >100.5/MCNEILL Aspirin 81 mg 03/17/19 10:00 03/21/19 09:28 Baby Aspirin PO 81 mg DAILY GIL Administration Atorvastatin Calcium 10 mg 03/17/19 10:00 03/21/19 09:27 Lipitor PO 10 mg DAILY GIL Administration Clonazepam 0.25 mg 03/17/19 10:00 03/21/19 09:28 Klonopin PO 0.25 mg BID GIL Administration Dextrose 50 ml 03/17/19 00:00 D50w (25gm) Syringe IV PRN PRN Hypoglycemia Divalproex Sodium 250 mg 03/17/19 10:00 03/21/19 09:26 Depakote Sprinkle PO 250 mg BID GIL Administration Docusate Sodium 100 mg 03/17/19 10:00 03/21/19 09:26 Colace PO 100 mg BID GIL Administration Donepezil HCl 5 mg 03/17/19 10:00 03/21/19 09:28 Aricept PO 5 mg BID GIL Administration Enoxaparin Sodium 40 mg 03/17/19 10:00 03/21/19 09:24 Lovenox SUB-Q 40 mg QDAY GIL Administration Gabapentin 300 mg 03/17/19 10:00 03/21/19 09:22 Neurontin PO 300 mg BID GIL Administration Hydralazine HCl 10 mg 03/18/19 08:30 Apresoline IV Q4H PRN Hypertension Insulin Human Lispro 0 unit 03/17/19 07:30 03/21/19 16:22 Humalog SUB-Q Not Given ACHS [facility] Protocol Levothyroxine Sodium 150 mcg 03/17/19 06:00 03/21/19 05:44 Synthroid PO 150 mcg DAILY@0600 GIL Administration Lisinopril 10 mg 03/17/19 10:00 03/21/19 09:31 Zestril PO Not Given DAILY [facility] Metoprolol Succinate 50 mg 03/17/19 10:00 03/21/19 09:30 Toprol Xl PO 50 mg DAILY GIL Administration Ondansetron HCl 4 mg 03/16/19 23:48 Zofran IV Q8H PRN Nausea And Vomiting Sodium Chloride 10 ml 03/17/19 10:00 03/21/19 09:32 Sodium Chloride Flush Syringe 10 Ml IV 10 ml BID GIL Administration Sodium Chloride 10 ml 03/16/19 23:48 Sodium Chloride Flush Syringe 10 Ml IV PRN PRN LINE FLUSH Nutrition/Malnutrition Assess - Dietary Evaluation Nutrition/Malnutrition Findings: Nutrition Notes Start: 03/17/19 16:07 Freq: Status: Active Protocol: Document 03/21/19 15:10 RM (Rec: 03/21/19 15:17 RM [id number]) Nutrition Notes Initial or Follow up Reassessment Current Diagnosis Diabetes,Hypertension Other Pertinent Diagnosis Dementia, Hypothyroidism, Bipolar disorder, Acute metabolic encephalopathy Current Diet pureed w/Glucerna 1 daily Labs/Tests No recent labs Pertinent Medications Reviewed Height 5 ft 7 in Weight 65.4 kg [place] Body Weight (kg) 61.36 BMI 22.6 Subjective/Other Information Pureed diet recommended per progress note 03/29/19. Pt and electro optics engineer in room at time of visit. government gauger stated that pt ate all of her breakfast and drank her Glucerna. Percent of energy/protein needs met: 100%/100% #1 Nutrition Diagnosis Predicted suboptimal energy intake As Evidenced by Signs and Symptoms pt meeting 100% of calorie and protein needs Diagnosis Progress(for reassessment Resolved documentation) Is patient on ventilator? No Is Patient Ambulatory and/or Out of Bed No REE-([facility]-confined to bed) 1921.000 Calculation Used for Recommendations [facility] Additional Notes Protein Needs: 68-82g (1-1.2g/ kg) Fluid Needs: 1 ml/kcal Nutrition Intervention Change Diet Order: Continue current Add Supplement/Snack (indicate name/kcal D/C Glucerna /protein ) Goal #1 Continue to meet at least 75% of calorie and protein needs via PO intakes Anticipated Discharge Needs: Pureed diet Revisit per MD consult or patient Sign Off request:
[2019-03-21] MEDS ORDERED: D50W (25GM) Syringe IV PRN (20:29)
[2019-03-22] MEDS: SYNTHROID PO SCH (05:42)
--- NOTE | 2019-03-22 07:17 | Discharge Summary ---
Providers - Providers Date of Admission: 03/16/19 23:48 Attending physician: LIANNE BUCKNER MD 03/17/19 00:00 Consult to Dietitian/Nutrition [CONS] Routine Physician Instructions: Reason For Exam: Reason for Consult: Malnutrition 03/17/19 00:14 Consult to Case Management [CONS] Routine Services Needed at Discharge: Photographic Plate Maker Notified:: MH manager inventory 03/17/19 03:42 psychiatry consult [Consult to Mental Health] [CONS] Routine Reason For Exam: 1013, bipolar disorder, Place consult to:: psych Notified:: RUSSELL Was contact made?: Yes 03/17/19 10:52 Speech Therapy Evaluation and Treat [CONS] Stat Reason For Exam: Pt. hypernatremic w/ need for fluids...dysphagia 03/17/19 12:39 Physical Therapy Evaluation and Treat [CONS] Routine Comment: Reason For Exam: Weakness Primary care physician: AMARI WALLS MD Hospitalization Reason for admission: ams Condition: Fair Hospital course: 73-year-old -[place] female FROM [facility] with history of diabetes, hypertension, dementia, subdural hematoma, hypothyroidism, bipolar disorder presents to [facility] ED via EMS with complaints of altered mental status. Evaluated by psych initially as 1013, and discontinued once patients medications optimized, has safety clothing and equipment developer. cleared by psych, initially accepted by inpt psych unit at [facility] but later denied due to med availability issues. During the hospitalization the patient had multiple electrolyte imbalances corrected During discussion with family, they mentioned that the patient was placed back on clonipril at the high dose. this medication was discontinued during the last admission and advised to be restarted only with pyschiatry input Awaiting discharge back to SNF. Imaging studies where unremarkable Discharge diagnosis; --Acute metabolic encephalopathy; multifactorial, bipolar disorder Electrolyte imbalance, history of subdural hematoma --Hypernatremia ; Na 153-145, resolved encourage plenty of oral fluids, --Dehydration; IV fluids, encourage plenty of oral fluids --Leukocytosis; resolved, closely monitor --DM2; Accu-Chek sliding scale coverage and ADA diet, oral hypoglycemics if needed --Hypertension: uncontrolled: cont current anti hypertensives.PRN hydralazine --HTN,; moderate control, continue current antihypertensives and when necessary medications --Dementia; supportive care. Psych evaluation --Bipolar disorder; psych evaluation, continue current management --History of subdural hematoma; stable Disposition: DC/[place]-03 SNF W [facility] Time spent for discharge: 35 MINS Core Measure Documentation - Palliative Care Palliative Care/ Comfort Measures: Not Applicable - Core Measures Any of the following diagnoses?: none Exam - Physical Exam Narrative exam: General appearance: Present: no acute distress, well-nourished - EENT Eyes: Present: PERRL, EOM intact - Neck Neck: Present: supple, normal ROM - Respiratory Respiratory effort: normal Respiratory: bilateral: diminished, negative: rales, rhonchi, wheezing - Cardiovascular Rhythm: regular Heart Sounds: Present: S1 & S2 - Extremities Extremities: no ischemia, No edema - Abdominal General gastrointestinal: deferred, non-tender, non-distended, normal bowel sounds - Integumentary Integumentary: Present: clear, warm - Psychiatric Psychiatric: cooperative, other (confused) - Neurologic Neurologic: moves all extremities - Constitutional Vitals: Temp Pulse Resp BP Pulse Ox 97.7 F 59 L 20 114/65 95 03/22/19 02:08 03/22/19 02:08 03/22/19 02:08 03/22/19 02:08 03/22/19 02:08 Plan Activity: advance as tolerated, fall precautions Diet: low fat Special Instructions: record daily weights, record daily BP diary Follow up with: AMARI WALLS MD [Primary Care Provider] - 3-5 Days STEPHANIE WALLS MD [Staff Physician] - 7 Days
[2019-03-22] MEDS: HumaLOG SUB-Q SCH ×3 (08:05→16:50)
[2019-03-22] MEDS: BABY ASPIRIN PO SCH (09:20)
[2019-03-22] MEDS: ARICEPT PO SCH (09:20)
[2019-03-22] MEDS: COLACE PO SCH (09:20)
[2019-03-22] MEDS: TOPROL XL PO SCH (09:21)
[2019-03-22] MEDS: ZESTRIL PO SCH (09:21)
[2019-03-22] MEDS: LOVENOX SUB-Q SCH (09:22)
[2019-03-22] MEDS: SODIUM CHLORIDE FLUSH SYRINGE 10 ML IV SCH (09:22)
[2019-03-22] MEDS: NEURONTIN PO SCH (09:27)
[2019-03-22 12:21] VITALS: BP 109/86
== END 2019-03-22 18:52 | DRG 640 ==
LOC: ED 20:40 → 2B-ACE 23:48
PROVIDERS: ADMIT Internal Medicine; ATTEND Internal Medicine
DX: E87.0 Hyperosmolality and hypernatremia (principal); G93.41 Metabolic encephalopathy; F05 Delirium due to known physiological condition; E86.0 Dehydration; I10 Essential (primary) hypertension; F31.9 Bipolar disorder, unspecified; F03.90 Unspecified dementia, unspecified severity, without behavioral disturbance, psychotic disturbance, mood disturbance, and anxiety; E03.9 Hypothyroidism, unspecified; E87.8 Other disorders of electrolyte and fluid balance, not elsewhere classified; D72.829 Elevated white blood cell count, unspecified; E11.40 Type 2 diabetes mellitus with diabetic neuropathy, unspecified; M10.9 Gout, unspecified; Z79.82 Long term (current) use of aspirin; Z79.899 Other long term (current) drug therapy
CPT/HCPCS: 36415; 70450; 71045; 80048; 80076; 80164; 80307; 80320; 81001; 82140; 82150; 82550; 82962; 83036; 83690; 83735; 85025; 93005; 93010; 96372; 99291; G0378; A9270-GY; G0480; J1650; J1815; J7030; J7070

== ENCOUNTER 2019-03-22 19:41 | Emergency (ER) | payer MEDICARE ==
[2019-03-22] MEDS ORDERED: HALDOL ONE (20:58)
[2019-03-22] MEDS ORDERED: ATIVAN ONE (21:45)
[2019-03-22] MEDS ORDERED: GEODON IM ONE (22:10)
[2019-03-23] MEDS ORDERED: ATIVAN IM PRN (01:10)
--- NOTE | 2019-03-23 01:11 | Emergency Department Report ---
ED General Adult HPI - General Chief complaint: Medical Clearance Stated complaint: AMS/COMBATIVE Time Seen by Provider: 03/22/19 23:34 Source: patient, EMS (ems notes not available at time of chart dictation), RN notes reviewed, old records reviewed Mode of arrival: Stretcher Limitations: Altered Mental Status, Other (patient disorganized. Patient is a poor historian) - History of Present Illness Initial comments: Hayley Segura [id number]; 1945 Room 10. This is a 73-year-old female. Currently, computer systems are down, so we do not have access to her old medical records. Per enclosed paperwork indicates that she has a past medical history of diabetes, hypertension, dementia, subdural hematoma, hypothyroidism, bipolar disorder. The patient was recently admitted to a hospital for an acute metabolic encephal opathy, likely multifactorial. She was found to have hyponatremia, dehydration, resolved leukocytosis. The patient was recently discharged from this hospital. She was sent to this emergency room today for agitation. The patient currently in the emergency room is making nonsensical syllables, and moving 4 extremities. She is not able to describe exacerbating or relieving factors. She is not able to describe a qualitative nature of her symptoms. She is not able to answer open-ended or close ended questions. No additional history is available at this time. [facility] paperwork does not clarify her of agitation. Review of systems is not possible secondary to the patients agitation and inability to participate in her history and physical. -: unknown Radiation: other Quality: other Consistency: other Improves with: other Worsens with: other Associated Symptoms: other - Related Data Home Medications Medication Instructions Recorded Confirmed Last Taken Aspirin [Aspirin BABY CHEW TAB] 81 mg PO DAILY 07/26/17 03/17/19 03/22/19 Divalproex ER [Depakote ER] 250 mg PO BID 07/26/17 03/17/19 03/22/19 Donepezil [Aricept] 5 mg PO BID 07/26/17 03/17/19 03/22/19 Enalapril Maleate [Vasotec] 10 mg PO BID 07/26/17 03/17/19 03/22/19 Gabapentin [Neurontin] 300 mg PO BID 07/26/17 03/17/19 03/22/19 Levothyroxine [Synthroid] 150 mcg PO DAILY 07/26/17 03/17/19 03/22/19 Memantine [Namenda] 5 mg PO DAILY 07/26/17 03/17/19 03/22/19 Metoprolol Xl [Metoprolol 50 mg PO DAILY 07/26/17 03/17/19 03/22/19 SUCCINATE ER TAB] metFORMIN [Glucophage] 500 mg PO BID 07/26/17 03/17/19 03/22/19 Lisinopril [Zestril TAB] 10 mg PO DAILY 03/17/19 03/17/19 03/22/19 cloZAPine (NF) [Clozapine (Nf)] 25 mg PO BID 03/17/19 03/17/19 03/22/19 Previous Rx's Medication Instructions Recorded Last Taken Type clonazePAM [KlonoPIN] 0.25 mg PO BID tablet 03/10/19 03/22/19 Rx AtorvaSTATin [Lipitor] 10 mg PO DAILY tablet 03/21/19 03/22/19 Rx Lispro Insulin [HumaLOG] 0 unit SUB-Q ACHS units 03/21/19 Unknown Rx Nitrofurantoin Lamb/M-Cryst 100 mg PO Q12HR #13 capsule 03/23/19 Unknown Rx [Macrobid CAP] Allergies Allergy/AdvReac Type Severity Reaction Status Date / Time No Known Allergies Allergy Verified 07/16/18 15:02 ED Review of Systems ROS: Stated complaint: AMS/COMBATIVE Other details as noted in HPI Comment: Unobtainable due to pts medical conditions ED Past Medical Hx - Past Medical History Hx Hypertension: Yes Hx Diabetes: Yes Hx Psychiatric Treatment: Yes Hx Dementia: Yes Hx HIV: No Additional medical history: Neuropathy, Gout, Bipolar, - Surgical History Additional Surgical History: Unknown - Social History Smoking Status: Unknown if ever smoked - Medications Home Medications: Home Medications Medication Instructions Recorded Confirmed Last Taken Type Aspirin [Aspirin BABY CHEW TAB] 81 mg PO DAILY 07/26/17 03/17/19 03/22/19 History Divalproex ER [Depakote ER] 250 mg PO BID 07/26/17 03/17/19 03/22/19 History Donepezil [Aricept] 5 mg PO BID 07/26/17 03/17/19 03/22/19 History Enalapril Maleate [Vasotec] 10 mg PO BID 1003/17/19 03/22/19 History Gabapentin [Neurontin] 300 mg PO BID 07/26/17 03/17/19 03/22/19 History Levothyroxine [Synthroid] 150 mcg PO DAILY 07/26/17 03/17/19 03/22/19 History Memantine [Namenda] 5 mg PO DAILY 07/26/17 03/17/19 03/22/19 History Metoprolol Xl [Metoprolol 50 mg PO DAILY 07/26/17 03/17/19 03/22/19 History SUCCINATE ER TAB] metFORMIN [Glucophage] 500 mg PO BID 07/26/17 03/17/19 03/22/19 History clonazePAM [KlonoPIN] 0.25 mg PO BID tablet 03/10/19 03/17/19 03/22/19 Rx Lisinopril [Zestril TAB] 10 mg PO DAILY 03/17/19 03/17/19 03/22/19 History cloZAPine (NF) [Clozapine (Nf)] 25 mg PO BID 03/17/19 03/17/19 03/22/19 History AtorvaSTATin [Lipitor] 10 mg PO DAILY tablet 03/21/19 03/22/19 Rx Lispro Insulin [HumaLOG] 0 unit SUB-Q ACHS units 03/21/19 Unknown Rx Nitrofurantoin Lamb/M-Cryst 100 mg PO Q12HR #13 capsule 03/23/19 Unknown Rx [Macrobid CAP] ED Physical Exam - General Limitations: Other (H and disorganized. Patient is a poor historian. Making nonsensical saliva sounds.) General appearance: anxious, other (patient is agitated) - Head Head exam: Present: atraumatic, normocephalic - Eye Eye exam: Present: normal appearance, PERRL, EOMI - ENT ENT exam: Present: normal orophraynx, mucous membranes moist, normal external ear exam, other (poor dentition is noted) - Neck Neck exam: Present: normal inspection, full ROM. Absent: tenderness, meningismus - Respiratory Respiratory exam: Present: normal lung sounds bilaterally. Absent: respiratory distress - Cardiovascular Cardiovascular Exam: Present: regular rate, normal rhythm, normal heart sounds. Absent: bradycardia, tachycardia, irregular rhythm, systolic murmur, diastolic murmur, rubs, gallop - GI/Abdominal GI/Abdominal exam: Present: soft. Absent: distended, tenderness, guarding, rebound, rigid, pulsatile mass - Extremities Exam Extremities exam: Present: normal inspection, full ROM, other (2+ pulses noted i n the bilateral upper, lower extremities. Compartments soft. No long bony tenderness. The pelvis is stable.). Absent: joint swelling, calf tenderness - Back Exam Back exam: Present: normal inspection, full ROM. Absent: tenderness, CVA tenderness (R), CVA tenderness (L), paraspinal tenderness, vertebral tenderness - Neurological Exam Neurological exam: Present: altered (patient is agitated. Patient making nonsensical sounds. Moving 4 extremities spontaneously. No obvious facial droop. Detailed neurologic examination is not able to be performed secondary to patient's alteration in mental status and inability to cooperate with her physical examination.) - Psychiatric Psychiatric exam: Present: normal affect, normal mood - Skin Skin exam: Present: warm, dry, intact, normal color. Absent: rash ED Course Vital Signs 03/23/19 03/23/19 03/23/19 01:00 02:00 04:00 Temperature Pulse Rate 77 70 78 Respiratory 16 18 16 Rate Blood Pressure 121/49 106/58 143/78 [Right] O2 Sat by Pulse 99 98 98 Oximetry 03/23/19 03/23/19 03/23/19 05:22 08:01 11:00 Temperature 98.7 F Pulse Rate 77 76 87 Respiratory 16 16 20 Rate Blood Pressure 127/73 170/86 185/84 [Right] O2 Sat by Pulse 98 99 97 Oximetry 03/23/19 03/23/19 03/23/19 17:07 20:05 21:47 Temperature 98.3 F 97.9 F 98 F Pulse Rate 85 108 H 92 H Respiratory 20 18 16 Rate Blood Pressure 185/103 172/90 165/72 [Right] O2 Sat by Pulse 100 98 98 Oximetry - Reevaluation(s) Reevaluation #1: 03/23/19 01:07 Differential diagnosis, including but not limited to: Psychosis, pneumonia, urinary tract infection, electrolyte derangement, thyroid derangement, intracranial lesion, mood disorder, behavioral disturbance eKG: No prior for comparison. This is a sinus rhythm, 62 bpm, left axis devia tion, left anterior fascicular block, right bundle branch block, motion artifact, QTC prolonged. Currently, no prior EKGs available for comparison. This EKG is not consistent with ST elevation myocardial infarction. Noncontrast CT scan of the brain: No acute disease x-ray of the chest, interpreted by myself, unremarkable films, no acute disease. Assessment and plan: 73-year-old female who is agitated, pleasant, moving 4 extremities, has unremarkable vital signs. Suspect that patients presentation is likely multifactorial. The patient is agitated, and required medication with Haldol, Ativan, and subsequently Geodon to allow expedient acquisition of diagnostics, to exclude potentially emergent pathology. Patient placed on a cardiac/vascular sonographer and pulse ox. Basic laboratory studies, EKG, urinalysis, noncontrast CT scan of the brain, x-ray of the chest ordered and results are pending. We will reassess after these data points have resulted. Reevaluation #2: 03/23/19 01:42 Radiology interprets x-ray of the chest as possible for early pneumonia. I clinically do not suspect pneumonia, however, we will obtain CT scan of the chest to better differentiate. Care is transferred to overnight physician, Dr. Joseph, to follow up on laboratory studies, CT scan of the chest, and arrange for final disposition. 03/23/19 20:27 ED Medical Decision Making - Lab Data Result diagrams: 03/23/19 02:00 03/23/19 02:00 Vital Signs 03/23/19 03/23/19 03/23/19 01:00 02:00 04:00 Temperature Pulse Rate 77 70 78 Respiratory 16 18 16 Rate Blood Pressure 121/49 106/58 143/78 [Right] O2 Sat by Pulse 99 98 98 Oximetry 03/23/19 03/23/19 03/23/19 05:22 08:01 11:00 Temperature 98.7 F Pulse Rate 77 76 87 Respiratory 16 16 20 Rate Blood Pressure 127/73 170/86 185/84 [Right] O2 Sat by Pulse 98 99 97 Oximetry 03/23/19 03/23/19 03/23/19 17:07 20:05 21:47 Temperature 98.3 F 97.9 F 98 F Pulse Rate 85 108 H 92 H Respiratory 20 18 16 Rate Blood Pressure 185/103 172/90 165/72 [Right] O2 Sat by Pulse 100 98 98 Oximetry Lab Results 03/22/19 03/23/19 03/23/19 Range/Units 20:48 01:18 02:00 WBC 11.9 H (4.5-11.0) K/mm3 RBC 4.81 (3.65-5.03) M/mm3 Hgb 11.9 (10.1-14.3) gm/dl Hct 38.2 (30.3-42.9) % MCV 80 (79-97) fl MCH 25 L (28-32) pg MCHC 31 (30-34) % RDW 14.9 (13.2-15.2) % Plt Count 283 (140-440) K/mm3 Sodium (137-145) mmol/L Potassium (3.6-5.0) mmol/L Chloride (98-107) mmol/L Carbon Dioxide (22-30) mmol/L Anion Gap mmol/L BUN (7-17) mg/dL Creatinine (0.7-1.2) mg/dL Estimated GFR ml/min BUN/Creatinine Ratio % Glucose (65-100) mg/dL POC Glucose 121 H (70-105) Calcium (8.4-10.2) mg/dL Magnesium (1.7-2.3) mg/dL Ammonia (25-60) umol/L Total Creatine Kinase (30-135) units/L TSH (0.270-4.200) mlU/mL Free T4 (0.76-1.46) ng/dL Urine Color Yellow (Yellow) Urine Turbidity Slightly-cloudy (Clear) Urine pH 6.0 (5.0-7.0) Ur Specific [place] 1.012 (1.003-1.030) Urine Protein <15 mg/dl (Negative) mg/dL Urine Glucose (UA) Neg (Negative) mg/dL Urine Ketones Neg (Negative) mg/dL Urine Blood Neg (Negative) Urine Nitrite Pos (Negative) Urine Bilirubin Neg (Negative) Urine Urobilinogen 2.0 (<2.0) mg/dL Ur Leukocyte Esterase Neg (Negative) Urine WBC (Auto) 6.0 (0.0-6.0) /HPF Urine RBC (Auto) 2.0 (0.0-6.0) /HPF U Epithel Cells (Auto) < 1.0 (0-13.0) /HPF Urine Bacteria (Auto) 1+ (Negative) /HPF Urine Mucus Few /HPF Salicylates (2.8-20.0) mg/dL Urine Opiates Screen Urine Methadone Screen Acetaminophen (10.0-30.0) ug/mL Ur Barbiturates Screen Ur Phencyclidine Scrn Ur Amphetamines Screen U Benzodiazepines Scrn Urine Cocaine Screen U Marijuana (THC) Screen Drugs of Abuse Note 03/23/19 03/23/19 03/23/19 Range/Units 02:00 02:00 02:00 WBC (4.5-11.0) K/mm3 RBC (3.65-5.03) M/mm3 Hgb (10.1-14.3) gm/dl Hct (30.3-42.9) % MCV (79-97) fl MCH (28-32) pg MCHC (30-34) % RDW (13.2-15.2) % Plt Count (140-440) K/mm3 Sodium 144 (137-145) mmol/L Potassium 4.2 (3.6-5.0) mmol/L Chloride 108.5 H (98-107) mmol/L Carbon Dioxide 22 (22-30) mmol/L Anion Gap 18 mmol/L BUN 13 (7-17) mg/dL Creatinine 0.9 (0.7-1.2) mg/dL Estimated GFR > 60 ml/min BUN/Creatinine Ratio 14 % Glucose 114 H (65-100) mg/dL POC Glucose (70-105) Calcium 9.2 (8.4-10.2) mg/dL Magnesium 2.20 (1.7-2.3) mg/dL Ammonia (25-60) umol/L Total Creatine Kinase 66 (30-135) units/L TSH (0.270-4.200) mlU/mL Free T4 1.27 (0.76-1.46) ng/dL Urine Color (Yellow) Urine Turbidity (Clear) Urine pH (5.0-7.0) Ur Specific [place] (1.003-1.030) Urine Protein (Negative) mg/dL Urine Glucose (UA) (Negative) mg/dL Urine Ketones (Negative) mg/dL Urine Blood (Negative) Urine Nitrite (Negative) Urine Bilirubin (Negative) Urine Urobilinogen (<2.0) mg/dL Ur Leukocyte Esterase (Negative) Urine WBC (Auto) (0.0-6.0) /HPF Urine RBC (Auto) (0.0-6.0) /HPF U Epithel Cells (Auto) (0-13.0) /HPF Urine Bacteria (Auto) (Negative) /HPF Urine Mucus /HPF Salicylates (2.8-20.0) mg/dL Urine Opiates Screen Urine Methadone Screen Acetaminophen (10.0-30.0) ug/mL Ur Barbiturates Screen Ur Phencyclidine Scrn Ur Amphetamines Screen U Benzodiazepines Scrn Urine Cocaine Screen U Marijuana (THC) Screen Drugs of Abuse Note 03/23/19 03/23/19 03/23/19 Range/Units 02:00 02:00 02:00 WBC (4.5-11.0) K/mm3 RBC (3.65-5.03) M/mm3 Hgb (10.1-14.3) gm/dl Hct (30.3-42.9) % MCV (79-97) fl MCH (28-32) pg MCHC (30-34) % RDW (13.2-15.2) % Plt Count (140-440) K/mm3 Sodium (137-145) mmol/L Potassium (3.6-5.0) mmol/L Chloride (98-107) mmol/L Carbon Dioxide (22-30) mmol/L Anion Gap mmol/L BUN (7-17) mg/dL Creatinine (0.7-1.2) mg/dL Estimated GFR ml/min BUN/Creatinine Ratio % Glucose (65-100) mg/dL POC Glucose (70-105) Calcium (8.4-10.2) mg/dL Magnesium (1.7-2.3) mg/dL Ammonia (25-60) umol/L Total Creatine Kinase (30-135) units/L TSH 13.520 H (0.270-4.200) mlU/mL Free T4 (0.76-1.46) ng/dL Urine Color (Yellow) Urine Turbidity (Clear) Urine pH (5.0-7.0) Ur Specific [place] (1.003-1.030) Urine Protein (Negative) mg/dL Urine Glucose (UA) (Negative) mg/dL Urine Ketones (Negative) mg/dL Urine Blood (Negative) Urine Nitrite (Negative) Urine Bilirubin (Negative) Urine Urobilinogen (<2.0) mg/dL Ur Leukocyte Esterase (Negative) Urine WBC (Auto) (0.0-6.0) /HPF Urine RBC (Auto) (0.0-6.0) /HPF U Epithel Cells (Auto) (0-13.0) /HPF Urine Bacteria (Auto) (Negative) /HPF Urine Mucus /HPF Salicylates < 0.3 L (2.8-20.0) mg/dL Urine Opiates Screen Urine Methadone Screen Acetaminophen < 5.0 L (10.0-30.0) ug/mL Ur Barbiturates Screen Ur Phencyclidine Scrn Ur Amphetamines Screen U Benzodiazepines Scrn Urine Cocaine Screen U Marijuana (THC) Screen Drugs of Abuse Note 03/23/19 03/23/19 03/23/19 Range/Units 09:01 18:13 20:52 WBC (4.5-11.0) K/mm3 RBC (3.65-5.03) M/mm3 Hgb (10.1-14.3) gm/dl Hct (30.3-42.9) % MCV (79-97) fl MCH (28-32) pg MCHC (30-34) % RDW (13.2-15.2) % Plt Count (140-440) K/mm3 Sodium (137-145) mmol/L Potassium (3.6-5.0) mmol/L Chloride (98-107) mmol/L Carbon Dioxide (22-30) mmol/L Anion Gap mmol/L BUN (7-17) mg/dL Creatinine (0.7-1.2) mg/dL Estimated GFR ml/min BUN/Creatinine Ratio % Glucose (65-100) mg/dL POC Glucose 227 H (70-105) Calcium (8.4-10.2) mg/dL Magnesium (1.7-2.3) mg/dL Ammonia 26.0 (25-60) umol/L Total Creatine Kinase (30-135) units/L TSH (0.270-4.200) mlU/mL Free T4 (0.76-1.46) ng/dL Urine Color (Yellow) Urine Turbidity (Clear) Urine pH (5.0-7.0) Ur Specific [place] (1.003-1.030) Urine Protein (Negative) mg/dL Urine Glucose (UA) (Negative) mg/dL Urine Ketones (Negative) mg/dL Urine Blood (Negative) Urine Nitrite (Negative) Urine Bilirubin (Negative) Urine Urobilinogen (<2.0) mg/dL Ur Leukocyte Esterase (Negative) Urine WBC (Auto) (0.0-6.0) /HPF Urine RBC (Auto) (0.0-6.0) /HPF U Epithel Cells (Auto) (0-13.0) /HPF Urine Bacteria (Auto) (Negative) /HPF Urine Mucus /HPF Salicylates (2.8-20.0) mg/dL Urine Opiates Screen Presumptive negative Urine Methadone Screen Presumptive negative Acetaminophen (10.0-30.0) ug/mL Ur Barbiturates Screen Presumptive negative Ur Phencyclidine Scrn Presumptive negative Ur Amphetamines Screen Presumptive negative U Benzodiazepines Scrn Presumptive negative Urine Cocaine Screen Presumptive negative U Marijuana (THC) Screen Presumptive negative Drugs of Abuse Note Disclamer - EKG Data -: EKG Interpreted by Me - EKG Data 03/23/19 01:07 eKG: No prior for comparison. This is a sinus rhythm, 62 bpm, left axis deviation, left anterior fascicular block, right bundle branch block, motion artifact, QTC prolonged. Currently, no prior EKGs available for comparison. This EKG is not consistent with ST elevation myocardial infarction. - Radiology Data Radiology results: report reviewed, image reviewed X-ray of the chest, interpreted by me, no acute disease. Noncontrast CT scan of the brain is negative for acute disease. Chronic findings noted. Print Report Referring Physician: TYLER ERNST Patient Name: HAYLEY GOMEZ Date of : 1945 Sex: Female Report Date: 2019-03-23 Report Status: Finalized Findings [facility] [address] [place] [address] XRay Report Signed Patient: HAYLEY GOMEZ MR# : [id number] : 1945 Acct:[id number] Age/Sex: 73 / F ADM Date: 03/22/19 Loc: ED Attending Dr: Ordering Physician: TYLER ERNST MD Date of Service: 03/22/19 Procedure(s): XR chest 1V ap Accession Number(s): [id number] cc: TYLER ERNST MD Fluoro Time In Minutes: PROCEDURE: XR CHEST 1V AP TECHNIQUE: Chest radiograph single view. HISTORY: Pneumonia. COMPARISONS: Chest radiographs March 16, 2019. FINDINGS: Heart: Normal. Mediastinum/Vessels: Atherosclerotic vascular calcifications. Lungs/Pleural space: Ill-defined left basilar opacities. Linear right basilar atelectasis. Bony thorax: No acute osseous abnormality. Life support devices: None. IMPRESSION: Suggested retrocardiac opacities may represent early infiltrate in the appropriate clinical setting. No lobar consolidation or large pleural effusion. This document is electronically signed by Diane Vaughan DO., March 23 2019 01:38:02 AM ET Transcribed By: DT Dictated By: DIANE VAUGHAN DO Electronically Authenticated By: DIANE VAUGHAN DO Signed Date/Time: 03/23/19 0139 Print Report Referring Physician: TYLER ERNST Patient Name: HAYLEY GOMEZ Date of : 1945 Sex: Female Report Date: 2019-03-23 Report Status: [id number] [id number] Cat Scan Report Signed Patient: HAYLEY GOMEZ MR# : [id number] : 1945 Acct:[id number] Age/Sex: 73 / F ADM Date: 03/22/19 Loc: ED Attending Dr: Ordering Physician: TYLER ERNST MD Date of Service: 03/23/19 Procedure(s): CT chest wo con Accession Number(s): [id number] cc: TYLER ERNST MD PROCEDURE: CT CHEST WO CON TECHNIQUE: Helical scanning was performed from the thoracic inlet to the inferior margin of the hemidiaphragms, using a 64 slice MDCT. A slice thickness of 5 mm was used for reconstruction of the axial slices and 3mm for the coronal images. Intravenous contrast was not utilized. HISTORY: Possible pneumonia on chest x-ray. COMPARISONS: Several prior radiographs, most recent from earlier the same day. FINDINGS: Lungs: Mild bibasilar scarring and a small left pleural effusion. No focal consolidation or pneumothorax. Mediastinum: No significant adenopathy is seen. Cardiac size stable. Vasculature: The great vessels and coronary arteries demonstrate moderate atherosclerotic vascular calcifications. Upper abdomen: Thickening and stranding about the adrenal glands. Probable splenule's. Mild bilateral perinephric stranding. Gallbladder is distended with bile, no internal calcification. Osseous structures: Decreased mineralization. Multilevel degenerative changes. Mild superior endplate compression deformity at T4 and the superior margin of T12. Subtle sclerotic line parallels the superior endplate of T12. IMPRESSION: 1. Mild bibasilar atelectasis and small left basilar pleural effusion account for the radiographic findings. There is no focal pneumonia. 2. Decreased osseous mineralization with mild compression deformities as above. This document is electronically signed by Diane Vaughan DO., March 23 2019 02:56:10 AM ET Transcribed By: DT Dictated By: DIANE VAUGHAN DO Electronically Authenticated By: DIANE VAUGHAN DO Signed Date/Time: 03/23/19 0257 Critical care attestation.: If time is entered above; I have spent that time in minutes in the direct care of this critically ill patient, excluding procedure time. ED Disposition Clinical Impression: Agitation, Dementia, History of bipolar disorder Disposition: DC/TX-70 ANOTHER TYPE HLTHCARE Is pt being admited?: No Does the pt Need Aspirin: No Condition: Stable Instructions: Bipolar Disorder (ED), Dementia (ED) Additional Instructions: Please follow-up with your primary care physician and psychiatrist. Return to the emergency Department with any worsening of your symptoms or any acute distress. Referrals: PRIMARY CARE, [Primary Care Provider] - 2-3 Days
--- NOTE | 2019-03-23 01:39 | XRay Report ---
PROCEDURE: XR CHEST 1V AP TECHNIQUE: Chest radiograph single view. HISTORY: Pneumonia. COMPARISONS: Chest radiographs March 16, 2019. FINDINGS: Heart: Normal. Mediastinum/Vessels: Atherosclerotic vascular calcifications. Lungs/Pleural space: Ill-defined left basilar opacities. Linear right basilar atelectasis. Bony thorax: No acute osseous abnormality. Life support devices: None. IMPRESSION: Suggested retrocardiac opacities may represent early infiltrate in the appropriate clinic al setting. No lobar consolidation or large pleural effusion. This document is electronically signed by Iasc Vaughan DO., March 23 2019 01:38:02 AM ET
--- NOTE | 2019-03-23 02:57 | Cat Scan Report ---
PROCEDURE: CT CHEST WO CON TECHNIQUE: Helical scanning was performed from the thoracic inlet to the inferior margin of the tg diaphragms, using a 64 slice MDCT. A slice thickness of 5 mm was used for reconstruction of the axial slices and 3mm for the coronal images. Intravenous contrast was not utilized. HISTORY: Possible pneumonia on chest x-ray. COMPARISONS: Several prior radiographs, most recent from earlier the same day. FINDINGS: Lungs: Mild bibasilar scarring and a small left pleural effusion. No focal consolidation or pneumotho rax. Mediastinum: No significant adenopathy is seen. Cardiac size stable. Vasculature: The great vessels and coronary arteries demonstrate moderate atherosclerotic vascular ca lcifications. Upper abdomen: Thickening and stranding about the adrenal glands. Probable splenule's. Mild bilateral perinephric stranding. Gallbladder is distended with bile, no internal calcification. Osseous structures: Decreased mineralization. Multilevel degenerative changes. Mild superior endplate compression deformity at T4 and the superior margin of T12. Subtle sclerotic line parallels the supe rior endplate of T12. IMPRESSION: 1. Mild bibasilar atelectasis and small left basilar pleural effusion account for the radiographic fi ndings. There is no focal pneumonia. 2. Decreased osseous mineralization with mild compression deformities as above. This document is electronically signed by Isac Vaughan DO., March 23 2019 02:56:10 AM ET
[2019-03-23 05:07] LABS: Hematocrit 38.2 % (30.3-42.9); Hemoglobin 11.9 gm/dl (10.1-14.3); Mean Corpuscular HGB Conc 31 % (30-34); Mean Corpuscular Volume 80 fl (79-97); Platelet Count 283 K/mm3 (140-440); Red Blood Count 4.81 M/mm3 (3.65-5.03); Red Cell Distribution Width 14.9 % (13.2-15.2)
[2019-03-23 05:27] LABS: BUN/Creatinine Ratio 14; Blood Urea Nitrogen 13 mg/dL (7-17); Calcium 9.2 mg/dL (8.4-10.2); Hemolysis Index 5
[2019-03-23 13:09] LABS: Bacteria,Urine 1+ /HPF (Negative); Bilirubin,Urine NEG (Negative); Blood,Urine NEG (Negative); Color,Urine Yellow (Yellow); Mucus,Urine FEW /HPF; Protein,Urine <15 mg/dL mg/dL (Negative)
[2019-03-23 18:45] LABS: Amphetamine Screen,Urine PRESUMPTIVE NEGATIVE; Benzodiazepines Screen,Urine PRESUMPTIVE NEGATIVE; Cannabinoid Screen,Urine PRESUMPTIVE NEGATIVE; Cocaine Screen,Urine PRESUMPTIVE NEGATIVE; Methadone Screen,Urine PRESUMPTIVE NEGATIVE; Opiate Screen,Urine PRESUMPTIVE NEGATIVE
[2019-03-23] MEDS ORDERED: TOPROL XL PO SCH (21:00)
[2019-03-23] MEDS ORDERED: BABY ASPIRIN PO SCH (21:00)
[2019-03-23] MEDS ORDERED: SYNTHROID PO SCH (21:00)
[2019-03-23] MEDS ORDERED: ZESTRIL PO SCH ×2 (21:00→22:00)
[2019-03-23 21:49] VITALS: BP 165/72
[2019-03-23] MEDS ORDERED: MACROBID PO SCH (22:00)
[2019-03-23] MEDS ORDERED: CLOZAPINE 25 MG PO SCH (22:00)
[2019-03-23] MEDS ORDERED: NON-FORMULARY (Enalapril Maleate [Vasotec] 10 MG) PO SCH (22:00)
[2019-03-23] MEDS ORDERED: GLUCOPHAGE PO SCH (22:00)
[2019-03-23] MEDS ORDERED: ARICEPT PO SCH ×2 (22:00)
[2019-03-23] MEDS ORDERED: NEURONTIN PO SCH (22:00)
[2019-03-24] MEDS ORDERED: SYNTHROID PO SCH (06:00)
== END 2019-03-23 22:56 | disposition other institution (70) ==
LOC: EEVIPCON 19:41 → ED 19:41
DX: F31.9 Bipolar disorder, unspecified (principal); F03.90 Unspecified dementia, unspecified severity, without behavioral disturbance, psychotic disturbance, mood disturbance, and anxiety; I10 Essential (primary) hypertension; E11.40 Type 2 diabetes mellitus with diabetic neuropathy, unspecified; Z79.82 Long term (current) use of aspirin; Z79.899 Other long term (current) drug therapy
CPT/HCPCS: 36415; 70450; 71045; 71250; 80048; 80307; 81001; 82140; 82550; 82962; 83735; 84439; 84443; 85027; 87086; 93005; 93010; 96372; 99285; A9270; G0480; J1630; J2060; J3486; 80320